=== PATIENT | female | born 1950 | race American Indian/Alaskan Native ===

== ENCOUNTER 2018-11-24 10:29 | Inpatient (IN) | payer MEDICAID, MEDICARE ==
[2018-11-24] MEDS ORDERED: ASPIRIN PO ONE (10:52)
--- NOTE | 2018-11-24 11:39 | XRay Report ---
CHEST 1 VIEW INDICATION / CLINICAL INFORMATION: Chest Pain. COMPARISON: 12/31/2015 FINDINGS: SUPPORT DEVICES: Central line is present and appears to be unremarkable with respect to position. HEART / MEDIASTINUM: Cardiac silhouette size is mild to moderately enlarged. This is unchanged. LUNGS / PLEURA: Mild interstitial pulmonary edema is present. No focal parenchymal disease or suggest ion of large pleural effusion. No pneumothorax. ADDITIONAL FINDINGS: No significant additional findings. IMPRESSION: 1. Mild interstitial pulmonary edema. Mild cardiomegaly. Signer Name: Cara Bryan MD Signed: 11/24/2018 11:34 AM Workstation Name: [id number]
[2018-11-24 11:44] LABS: Basophils # (Auto) 0.1 K/mm3 (0.0-0.1); Basophils % (Auto) 0.8 % (0.0-1.8); Eosinophils # (Auto) 0.2 K/mm3 (0.0-0.4); Eosinophils % (Auto) 1.9 % (0.0-4.3); Hemoglobin 11.4 gm/dl (10.1-14.3); Lymphocytes # (Auto) 0.7 K/mm3 (1.2-5.4); Lymphocytes % (Auto) 8.1 % (13.4-35.0); Mean Corpuscular HGB Conc 34 % (30-34); Mean Corpuscular Volume 112 fl (79-97); Monocytes # (Auto) 0.9 K/mm3 (0.0-0.8); Monocytes % (Auto) 10.4 % (0.0-7.3); Platelet Count 199 K/mm3 (140-440); Red Blood Count 3.03 M/mm3 (3.65-5.03); Red Cell Distribution Width 16.5 % (13.2-15.2)
--- NOTE | 2018-11-24 11:56 | Emergency Department Report ---
HPI - General Chief Complaint: Chest Pain Time Seen by Provider: 11/24/18 11:39 - HPI HPI: Room 7 The patient is a 68-year-old female presenting with chief complaint of chest pain and altered mental status. The patient is a very poor historian as she a ppears lethargic and does not answer all questions. The patient's son reportedly brought her in for chest pain, shortness of breath and altered mental status for several days. The patient admits to chest pain for one day associated with shortness of breath nausea and diaphoresis. The patient repo rtedly has not had dialysis since 11/20/2018 ED Past Medical Hx - Past Medical History Hx Hypertension: Yes (No home medication ) Hx Arthritis: Yes Hx Psychiatric Treatment: Yes (bipolar, anxiety) Additional medical history: hepatitis C - Surgical History Additional Surgical History: left hip replacement 2006. LEFT FALLOPIAN TUBE REMOVED. partial hystertecomy. 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 - Family History Family history: no significant - Social History Smoking Status: Current Every Day Smoker - Medications Home Medications: Home Medications Medication Instructions Recorded Confirmed Last Taken Type raNITIdine HCl [Zantac 300 MG TAB] 300 mg PO QPM #14 tablet 12/31/15 Unknown Rx traMADol [Ultram] 50 mg PO Q6HR PRN #20 tablet 12/31/15 Unknown Rx ED Review of Systems ROS: Stated complaint: CHEST PAIN Other details as noted in HPI Constitutional: diaphoresis Eyes: denies: eye pain ENT: denies: throat pain Respiratory: shortness of breath Cardiovascular: chest pain Gastrointestinal: nausea Genitourinary: denies: dysuria Musculoskeletal: denies: back pain Neurological: other (altered mental status). denies: headache Physical Exam - Physical Exam Vital Signs: Vital Signs 11/24/18 10:35 Temperature 97.4 F L Pulse Rate 66 Respiratory 16 Rate Blood Pressure 101/42 O2 Sat by Pulse 98 Oximetry Physical Exam: GENERAL: The patient is well-developed well-nourished female lying on stretcher sleeping. Patient awakens to verbal stimuli but falls back to sleep easily. [] HEENT: Normocephalic. Atraumatic. Extraocular motions are intact. Patient has moist mucous membranes. NECK: Supple. Trachea midline CHEST/LUNGS: Clear to auscultation. There is no respiratory distress noted. HEART/CARDIOVASCULAR: Regular. There is no tachycardia. There is no gallop rub or murmur. ABDOMEN: Abdomen is soft, nontender. Patient has normal bowel sounds. There is no abdominal distention. SKIN: There is no rash. There is no edema. There is no diaphoresis. NEURO: The patient is sleepy but awakens to verbal stimuli. Patient falls back to sleep easily. Patient does not fully cooperate with neurologic exam but has equal home care companion, and moves all extremities.. The patient has normal speech MUSCULOSKELETAL: There is no evidence of acute injury. ED Course Vital Signs 11/24/18 10:35 Temperature 97.4 F L Pulse Rate 66 Respiratory 16 Rate Blood Pressure 101/42 O2 Sat by Pulse 98 Oximetry - Consultations Consultation #1: 11/24/18 12:08 Nephrology paged- case d/w Dr Dangelo. will arrange for hemodialysis 1 ED Medical Decision Making - Lab Data Result diagrams: 11/24/18 10:59 11/24/18 10:59 Laboratory Tests 11/24/18 11/24/18 11/24/18 10:59 10:59 12:07 WBC 9.1 RBC 3.03 L Hgb 11.4 Hct 34.0 MCV 112 H MCH 38 H MCHC 34 RDW 16.5 H Plt Count 199 Lymph % (Auto) 8.1 L [place] % (Auto) 10.4 H Eos % (Auto) 1.9 Baso % (Auto) 0.8 Lymph # 0.7 L [place] # 0.9 H Eos # 0.2 Baso # 0.1 Seg Neutrophils % 78.8 H Seg Neutrophils # 7.2 Sodium 131 L Potassium 6.1 H* Chloride 88.2 L Carbon Dioxide 19 L Anion Gap 30 BUN 50 H Creatinine 8.8 H Estimated GFR 5 BUN/Creatinine Ratio 6 Glucose 63 L POC Glucose Calcium 13.4 H* Ammonia 53.0 Troponin T 0.137 H* Triglycerides 54 Cholesterol 126 LDL Cholesterol Direct 52 HDL Cholesterol 64 H Cholesterol/HDL Ratio 1.96 TSH Free T4 11/24/18 11/24/18 12:07 13:34 WBC RBC Hgb Hct MCV MCH MCHC RDW Plt Count Lymph % (Auto) [place] % (Auto) Eos % (Auto) Baso % (Auto) Lymph # [place] # Eos # Baso # Seg Neutrophils % Seg Neutrophils # Sodium Potassium Chloride Carbon Dioxide Anion Gap BUN Creatinine Estimated GFR BUN/Creatinine Ratio Glucose POC Glucose 177 H Calcium Ammonia Troponin T Triglycerides Cholesterol LDL Cholesterol Direct HDL Cholesterol Cholesterol/HDL Ratio TSH 0.533 Free T4 1.45 - EKG Data -: EKG Interpreted by Me EKG shows normal: sinus rhythm Rate: normal - EKG Data When compared to previous EKG there are: changes noted Interpretation: nonspecific ST-T wave lauryn (T-wave inversions in leads [address] segment depression in leads V4, V5, V6) - Radiology Data Radiology results: report reviewed (chest x-ray, CT head), image reviewed (chest x-ray, CT head) interpreted by me: Chest [id number] edema. No pneumothorax [address] [address] XRay Report Signed Patient: DALE SNYDER MR#: [id number] 470 : 1950 Acct:[id number] Age/Sex: 68 / F ADM Date: 11/24/18 Loc: ED Attending Dr: Ordering Physician: VENTURA RIVERA MD Date of Service: 11/24/18 Procedure(s): XR chest 1V ap Accession Number(s): [id number] cc: VENTURA RIVERA MD Fluoro Time In Minutes: CHEST 1 VIEW INDICATION / CLINICAL INFORMATION: Chest Pain. COMPARISON: 12/31/2015 FINDINGS: SUPPORT DEVICES: Central line is present and appears to be unremarkable with respect to position. HEART / MEDIASTINUM: Cardiac silhouette size is mild to moderately enlarged. This is unchanged. LUNGS / PLEURA: Mild interstitial pulmonary edema is present. No focal parenchymal disease or suggestion of large pleural effusion. No pneumothorax. ADDITIONAL FINDINGS: No significant additional findings. IMPRESSION: 1. Mild interstitial pulmonary edema. Mild cardiomegaly. Signer Name: Cara Bryan MD Signed: 11/24/2018 11:34 AM Workstation Name: [id number] Transcribed By: JR Dictated By: Cara Bryan MD Electronically Authenticated By: Cara Bryan MD Signed Date/Time: 11/24/18 1134 DD/ 1132 TD/TT: [address] [address] Cat Scan Report Signed Patient: DALE SNYDER MR#: [id number] 470 : 1950 Acct:[id number] Age/Sex: 68 / F ADM Date: 11/24/18 Loc: ED Attending Dr: Ordering Physician: VENTURA RIVEAR MD Date of Service: 11/24/18 Procedure(s): CT head/brain wo con Accession Number(s): [id number] cc: VENTURA RIVERA MD CT BRAIN: 11/24/2018 INDICATION / CLINICAL INFORMATION: altered mental status. COMPARISON: None available. FINDINGS: BRAIN/INTRACRANIAL STRUCTURES: Unenhanced CT images of the brain demonstrate no evidence of acute intracranial abnormality. Ventricles and sulci are slightly prominent in size, consistent with age-related atrophic change. Extensive chronic white matter hypoattenuation is present throughout the cerebral hemispheric white matter. There is no CT evidence of acute large vessel territory ischemic injury, hemorrhage, or mass. There are no abnormal extra-axial fluid collections. EXTRACRANIAL STRUCTURES: Unremarkable. IMPRESSION: No acute abnormality. Extensive chronic white matter hypoattenuation. All CT scans at this location are performed using dose reduction to ALARA by means of automated exposure control. Signer Name: Caden Starkey MD Signed: 11/24/2018 1:37 PM Workstation Name: [id number] Transcribed By: AO Dictated By: Caden Starkey MD Electronically Authenticated By: Caden Starkey MD Signed Date/Time: 11/24/181336 DD/ 34 TD/TT: - Differential Diagnosis ACS, hepatic encephalopathy, uremia Critical care attestation.: If time is entered above; I have spent that time in minutes in the direct care of this critically ill patient, excluding procedure time. ED Disposition Clinical Impression: Altered mental status, Hyperkalemia, End-stage renal disease needing dialysis, Chest pain, Hypercalcemia Disposition: OP ADMIT IP TO THIS HOSP Is pt being admited?: Yes Does the pt Need Aspirin: Yes Condition: Fair Instructions: Chest Pain (ED) Referrals: PRIMARY CARE, [Primary Care Provider] - 3-5 Days Time of Disposition: 13:46 (hospitalist.)
[2018-11-24 12:04] LABS: Calcium 13.4 mg/dL (8.4-10.2)
[2018-11-24] MEDS ORDERED: HumuLIN R IV ONE (12:07)
[2018-11-24] MEDS ORDERED: PROVENTIL IH ONE (12:07)
[2018-11-24] MEDS ORDERED: D50W (25GM) Syringe IV ONE (12:07)
[2018-11-24 12:18] LABS: Chol/HDL Ratio 1.96 %
[2018-11-24 12:58] LABS: Free T4 (Free Thyroxine) 1.45 ng/dL (0.76-1.46)
[2018-11-24] MEDS ORDERED: CALCIUM GLUCONATE 1,000 MG in NACL 0.9% 100 ML IV ONE (13:00)
--- NOTE | 2018-11-24 13:41 | Cat Scan Report ---
CT BRAIN: 11/24/2018 INDICATION / CLINICAL INFORMATION: altered mental status. COMPARISON: None available. FINDINGS: BRAIN/INTRACRANIAL STRUCTURES: Unenhanced CT images of the brain demonstrate no evidence of acute int racranial abnormality. Ventricles and sulci are slightly prominent in size, consistent with age-related atrophic change. Extensive chronic white matter hypoattenuation is present throughout the cerebral hemispheric white m atter. There is no CT evidence of acute large vessel territory ischemic injury, hemorrhage, or mass. There a re no abnormal extra-axial fluid collections. EXTRACRANIAL STRUCTURES: Unremarkable. IMPRESSION: No acute abnormality. Extensive chronic white matter hypoattenuation. All CT scans at this location are performed using dose reduction to ALARA by means of automated expos ure control. Signer Name: Caden Starkey MD Signed: 11/24/2018 1:37 PM Workstation Name: [id number]
--- NOTE | 2018-11-24 13:49 | History and Physical Report ---
History of Present Illness Chief complaint: confused History of present illness: 68 YO Female with Nicotine Dependence, HTN, OA, HCV, Bipolar, Anxiety, Severe Malnutrition, ESRD on HD(T,R,Sa), Noncompliance with Dialysis presents to ED for evaluation. Pt is confused and unable to provide detailed history at time of my exam. Pt history taken from ED staff and patient son who is at bedside during exam and interview. As per son, the patient has complained of shortness of breath over the past 2 days, and has exhibited worsening confusion over the same time frame. Pt transported to [facility] via private vehicle. Pt seen and evaluated in ED and found to have ESRD, Acidosis, Encephalopathy, and Hyperkalemia secondary to missed dialysis sessions. Nephrology consulted in ED for urgent dialysis. No reports of fever, chills, palpitations, NVD, Trauma, BRBPR, Skin rash, recent ill contacts, productive cough, falls, prolonged travel/immobility, individual/family history of Bleeding/DVT/PE/Blood clotting disorders. Prior ad mission on 07/01/15 reviewed. All listed medication reconciled at time of admission. Pt is confused, and lethargic, but has a positive gag reflex, and in able to protect her airway. Past History Past Medical History: ESRD, hepatitis, hypertension, other (Bipol ar,Malnutrition,) Past Surgical History: hysterectomy, total hip replacement, Other (Arm surgery) Social history: , smoking Family history: hypertension Medications and Allergies Allergies Allergy/AdvReac Type Severity Reaction Status Date / Time acetaminophen [From Vicodin] AdvReac Vomiting Verified 05/01/15 11:19 hydrocodone bitartrate AdvReac Vomiting Verified 05/01/15 11:19 [From Vicodin] Home Medications Medication Instructions Recorded Confirmed Last Taken Type raNITIdine HCl [Zantac 300 MG TAB] 300 mg PO QPM #14 tablet 12/31/15 Unknown Rx traMADol [Ultram] 50 mg PO Q6HR PRN #20 tablet 12/31/15 Unknown Rx Review of Systems ROS unobtainable: due to mental status Exam - Constitutional Vitals: Temp Pulse Resp BP Pulse Ox 97.4 F L 77 18 127/72 99 11/24/18 10:35 11/24/18 12:01 11/24/18 12:01 11/24/18 12:01 11/24/18 12:01 General appearance: Present: mild distress, cachectic - EENT Eyes: Present: miosis ENT: hearing decreased - Neck Neck: Present: supple, normal ROM - Respiratory Respiratory effort: labored Respiratory: bilateral: diminished, rhonchi - Cardiovascular Heart Sounds: Present: S1 & S2. Absent: rub, click - Extremities Extremities: pulses symmetrical, No edema Peripheral Pulses: within normal limits - Abdominal General gastrointestinal: Present: soft, non-tender, non-distended, normal bowel sounds Female genitourinary: Present: normal - Integumentary Integumentary: Present: clear, warm, dry - Musculoskeletal Musculoskeletal: generalized weakness - Psychiatric Psychiatric: no appropriate mood/affect, no intact judgment & insight, no memory intact - Neurologic Neurologic: moves all extremities, no gait normal Results - Labs CBC & Chem 7: 11/24/18 10:59 11/24/18 10:59 Labs: Abnormal lab results 11/24/18 11/24/18 11/24/18 Range/Units 10:59 10:59 13:34 RBC 3.03 L (3.65-5.03) M/mm3 MCV 112 H (79-97) fl MCH 38 H (28-32) pg RDW 16.5 H (13.2-15.2) % Lymph % (Auto) 8.1 L (13.4-35.0) % [place] % (Auto) 10.4 H (0.0-7.3) % Lymph # 0.7 L (1.2-5.4) K/mm3 [place] # 0.9 H (0.0-0.8) K/mm3 Seg Neutrophils % 78.8 H (40.0-70.0) % Sodium 131 L (137-145) mmol/L Potassium 6.1 H* (3.6-5.0) mmol/L Chloride 88.2 L (98-107) mmol/L Carbon Dioxide 19 L (22-30) mmol/L BUN 50 H (7-17) mg/dL Creatinine 8.8 H (0.7-1.2) mg/dL Glucose 63 L (65-100) mg/dL POC Glucose 177 H (70-105) Calcium 13.4 H* (8.4-10.2) mg/dL Troponin T 0.137 H* (0.00-0.029) ng/mL HDL Cholesterol 64 H (40-59) mg/dL Assessment and Plan - Patient Problems (1) ESRD (end stage renal disease) Current Visit: Yes Status: Acute Plan to address problem: Nephrology consulted in ED, Urgent dialysis, strict I/O, daily weight, monitor uop q shift, avoid nephrotoxic agents. (2) Encephalopathy Current Visit: Yes Status: Acute Plan to address problem: CT Head, neuro check, aspiration precaution, fall precautions, supportive care. (3) Fluid overload Current Visit: Yes Status: Acute Qualifiers: Hypervolemia type: other Qualified Code(s): E87.79 - Other fluid overload Plan to address problem: Secondary to missed dialysis, supportive care, urgent dialysis. (4) HCV (hepatitis C virus) Current Visit: Yes Status: Acute Qualifiers: Viral hepatitis chronicity: chronic Plan to address problem: Outpatient GI F/U care, (5) Acidosis Current Visit: Yes Status: Acute Plan to address problem: IV bicarbonate therapy, urgent dialysis, repeat bmp (6) Malnutrition Current Visit: Yes Status: Acute Qualifiers: Protein-calorie malnutrition severity: severe Plan to address problem: Increased protein intake, dietary supplementation. (7) Osteoarthritis Current Visit: Yes Status: Acute Plan to address problem: pain control, supportive care. (8) Hyperkalemia Current Visit: Yes Status: Acute Plan to address problem: Calcium gluconate, Insulin, D 50, urgent dialysis, repeat bmp in am. (9) DVT prophylaxis Current Visit: Yes Status: Acute Plan to address problem: SCD to BLE while in bed, supportive care.
[2018-11-24] MEDS ORDERED: PROVENTIL IH PRN (14:00)
[2018-11-24] MEDS ORDERED: SODIUM CHLORIDE FLUSH SYRINGE 10 ML IV PRN (14:00)
--- NOTE | 2018-11-24 14:06 | Consultation ---
History of Present Illness - Reason for Consult acute renal failure - History of Present Illness 68 year old with medical history significant for HTN, ESRD on hemodialysis on TTS via a Right IJ cath presents after missed HD since Sunday. She was confused and brought to the emergency room by her nephew. She has some shortness of breath labs are significant for severe hyperkalemia denies any orthopnea or PND. She denies any fevers or chills she has some abdominal soreness but denies any nausea vomiting or diarrhea Medications and Allergies Allergies Allergy/AdvReac Type Severity Reaction Status Date / Time acetaminophen [From Vicodin] AdvReac Vomiting Verified 05/01/15 11:19 hydrocodone bitartrate AdvReac Vomiting Verified 05/01/15 11:19 [From Vicodin] Home Medications Medication Instructions Recorded Confirmed Last Taken Type raNITIdine HCl [Zantac 300 MG TAB] 300 mg PO QPM #14 tablet 12/31/15 Unknown Rx traMADol [Ultram] 50 mg PO Q6HR PRN #20 tablet 12/31/15 Unknown Rx Review of Systems Constitutional: no weight loss, no weight gain Ears, nose, mouth and throat: no deferred, no ear pain, no ear discharge Cardiovascular: no chest pain, no orthopnea, no palpitations Respiratory: no cough, no cough with sputum Gastrointestinal: no abdominal pain, no nausea, no vomiting Musculoskeletal: no neck stiffness, no neck pain Integumentary: no deferred, no rash, no blisters Neurological: no head injury Psychiatric: no anxiety, no memory loss Endocrine: no cold intolerance, no heat intolerance Hematologic/Lymphatic: no easy bruising, no easy bleeding Exam - Vital Signs Vital signs: Vital Signs Temp Pulse Resp BP Pulse Ox 97.4 F L 66 16 101/42 98 11/24/18 10:35 11/24/18 10:35 11/24/18 10:35 11/24/18 10:35 11/24/18 10:35 - General Appearance General appearance: well-developed, well-nourished EENT: ATNC, PERRL Neck: Present: JVD/HJR Respiratory: Rales, Ronchi, Decreased Breath Sounds Heart: regular, S1S2 Gastrointestinal: Present: normal, normoactive bowel sounds Integumentary: no rash Neurologic: alert and oriented x3, CN 3-12 intact Musculoskeletal: Present: deferred Psychiatric: mood/affect appropriate Results - Lab Results 11/24/18 10:59 11/24/18 10:59 Most recent lab results Calcium 13.4 mg/dL (8.4-10.2) H* 11/24/18 10:59 - Image Kidney/bladder ultrasound: image reviewed Assessment and Plan - Patient Problems (1) End-stage renal disease needing dialysis Current Visit: Yes Status: Acute Plan to address problem: End-stage renal disease Access left IJ PermCath We'll initiate dialysis (2) Pulmonary edema Current Visit: Yes Status: Acute Plan to address problem: Pulmonary edema I reviewed chest x-ray with diffuse bilateral opacities consistent with pulmonary congestion We'll initiate ultrafiltration (3) Hypercalcemia Current Visit: Yes Status: Acute Plan to address problem: Hypercalcemia : Ca: 13.4 Will use a low calcium bath (4) Hyperkalemia Current Visit: Yes Status: Acute Plan to address problem: Hyperkalemia Will use 2K bath continue HD 3.5hrs. (5) Metabolic acidosis Current Visit: Yes Status: Acute Plan to address problem: Metabolic acidosis 2/2 CKD -will initiate HD.
[2018-11-24 15:09] LABS: Hepatitis B Surface Antigen Non-Reactive (Negative); Hepatitis C Virus Antibody Reactive (NonReactive)
[2018-11-24] MEDS ORDERED: ALBURX 25% (ALBUMIN) IV STA (15:24)
[2018-11-24] MEDS ORDERED: NON-FORMULARY (Ranitidine Hcl [Zantac 300 Mg Tab] 300 MG) PO SCH (18:00)
[2018-11-24] MEDS ORDERED: NACL 0.9 (PRIMING MACHINE ONLY DIALYSIS) MC ONE (18:15)
[2018-11-24] MEDS: SODIUM CHLORIDE FLUSH SYRINGE 10 ML IV SCH (21:28)
[2018-11-24] MEDS ORDERED: PEPCID PO SCH (22:00)
[2018-11-25] MEDS ORDERED: NITROSTAT SL PRN (01:02)
[2018-11-25] MEDS ORDERED: HEPARIN 10,000 UNITS/10 ML IV ONE (01:03)
--- NOTE | 2018-11-25 01:14 | Event Note ---
Date: 11/25/18 PATIENT REPORTED BY NURSE TO HAVE ELEVATED TROPONIN LEVELS AFTER BEING ADMITTED FOR SOB,CHEST PAIN ESRD NEEDING URGENT DIALYSIS. WILL START I.V HEPARIN PER NSTEMI PROTOCOL, PO ASPIRIN NITRO PASTE AND SL. CARDIOLOGY CONSULT, NPO
[2018-11-25 01:41] LABS: Hematocrit 33.1 % (30.3-42.9); Hemoglobin 11.3 gm/dl (10.1-14.3)
[2018-11-25 01:52] LABS: INR 1.16 (0.87-1.13)
[2018-11-25 01:53] LABS: Partial Thromboplastin Time 35.4 Sec. (24.2-36.6)
[2018-11-25] MEDS ORDERED: HEPARIN/ 0.45% NACL-25,000 UNIT/500 ML 25,000 UNIT/500 ML BAG IV SCH (02:00)
[2018-11-25 06:00] LABS: Albumin 4.3 g/dL (3.9-5)
[2018-11-25 06:04] LABS: Calcium 11.8 mg/dL (8.4-10.2)
[2018-11-25] MEDS: NITRO-BID 2% TP SCH ×3 (06:22→17:02)
--- NOTE | 2018-11-25 07:40 | Progress Note ---
Assessment and Plan Assessment and plan: 68 YO Female with Nicotine Dependence, HTN, OA, HCV, Bipolar, Anxiety, Severe Malnutrition, ESRD on HD(T,R,Sa), Noncompliance with Dialysis presents to ED for evaluation. Pt is confused and unable to provide detailed history at time of my exam. Pt history taken from ED staff and patient son who is at bedside during exam and interview. 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 Pt transported to [facility] via private vehicle. * In ED and found to have ESRD, Acidosis, Encephalopathy, and Hyperkalemia secondary to missed dialysis sessions. Nephrology consulted in ED for urgent dialysis. * Pt is confused, and lethargic, but has a positive gag reflex, and in able to protect her airway. No evidence of Infection noted * Patient noted to have elevated Troponin and NSTEMI protocol initiated. Review of previous records shows normal tropnin and no evidence of prior cardiac work up * Rechecked BP and saturation myself, 91/48 with sat of 92 on RA. * Initatied Midodrine, will need at least one more dialysis. * Discontinue heparin gtt. discussed with Cardiology * PT/OT FOR POSSIBLE Rehab need assessment. - Patient Problems (1) ESRD (end stage renal disease) Current Visit: Yes Status: Acute Plan to address problem: Nephrology consulted in ED, Electrolytes improved following Dialysis (2) Elevated Troponin Possible Type 2 SC, await cardiology eval, Obtain Echo, Continue NSTEMI protocol till cardiology eal, (3) Acute Respiratory failure secondary Fluid overload Current Visit: Yes Status: Acute Qualifiers: Hypervolemia type: other Qualified Code(s): E87.79 - Other fluid overload Plan to address problem: Secondary to missed dialysis, supportive care, urgent dialysis. Wean oxygen, (4) Metabolic Encephalopathy Current Visit: Yes Status: Acute Plan to address problem: CT head is negative for acute disease Mental health improving (5) Acidosis Current Visit: Yes Status: Acute Plan to address problem: IV bicarbonate therapy, urgent dialysis, repeat bmp (6) Malnutrition Current Visit: Yes Status: Acute Qualifiers: Protein-calorie malnutrition severity: severe Plan to address problem: Increased protein intake, dietary supplementation. (7) Osteoarthritis Current Visit: Yes Status: Acute Plan to address problem: pain control, supportive care. (8) Hyperkalemia Current Visit: Yes Status: Acute Plan to address problem: Patient was given Calcium gluconate, Insulin, D 50, urgent dialysis, Now [facility] ed (9) Hypotension Start on MIDODRINE (10)HCV (hepatitis C virus) Current Visit: Yes Status: Acute Qualifiers: Viral hepatitis chronicity: chronic Plan to address problem: Outpatient GI F/U care, (11) DVT prophylaxis Current Visit: Yes Status: Acute Plan to address problem: SCD to BLE while in bed, supportive care. History Interval history: Patient seen and examined, remains lethargic, but awake and responsive. Complains of generalized body ache, improving. Hospitalist Physical - Physical exam Narrative exam: General appearance: Present: mild distress, cachectic - EENT Eyes: Present: miosis ENT: hearing decreased - Neck Neck: Present: supple, normal ROM - Respiratory Respiratory effort: labored Respiratory: bilateral: diminished, rhonchi - Cardiovascular Heart Sounds: Present: S1 & S2. Absent: rub, click - Extremities Extremities: pulses symmetrical, No edema Peripheral Pulses: within normal limits - Abdominal General gastrointestinal: Present: soft, non-tender, non-distended, normal bowel sounds Female genitourinary: Present: normal - Integumentary Integumentary: Present: clear, warm, dry, left chest wall dialysis catheter with dressing - Musculoskeletal Musculoskeletal: generalized weakness - Psychiatric Psychiatric: no appropriate mood/affect, no intact judgment & insight, no memory intact - Neurologic Neurologic: moves all extremities, no gait normal - Constitutional Vitals: Temp Pulse Resp BP Pulse Ox 99.7 F H 80 18 89/41 92 11/25/18 02:02 11/25/18 06:22 11/25/18 02:22 11/25/18 06:22 11/25/18 02:22 General appearance: Present: mild distress, cachectic Results - Labs CBC & Chem 7: 11/25/18 01:18 11/25/18 05:06 Labs: Laboratory Last Values WBC 9.1 K/mm3 (4.5-11.0) 11/24/18 10:59 RBC 3.03 M/mm3 (3.65-5.03) L 11/24/18 10:59 Hgb 11.3 gm/dl (10.1-14.3) 11/25/18 01:18 Hct 33.1 % (30.3-42.9) 11/25/18 01:18 MCV 112 fl (79-97) H 11/24/18 10:59 MCH 38 pg (28-32) H 11/24/18 10:59 MCHC 34 % (30-34) 11/24/18 10:59 RDW 16.5 % (13.2-15.2) H 11/24/18 10:59 Plt Count 186 K/mm3 (140-440) 11/25/18 01:18 Lymph % (Auto) 8.1 % (13.4-35.0) L 11/24/18 10:59 Gillespie % (Auto) 10.4 % (0.0-7.3) H 11/24/18 10:59 Eos % (Auto) 1.9 % (0.0-4.3) 11/24/18 10:59 Baso % (Auto) 0.8 % (0.0-1.8) 11/24/18 10:59 Lymph # 0.7 K/mm3 (1.2-5.4) L 11/24/18 10:59 Gillespie # 0.9 K/mm3 (0.0-0.8) H 11/24/18 10:59 Eos # 0.2 K/mm3 (0.0-0.4) 11/24/18 10:59 Baso # 0.1 K/mm3 (0.0-0.1) 11/24/18 10:59 Seg Neutrophils % 78.8 % (40.0-70.0) H 11/24/18 10:59 Seg Neutrophils # 7.2 K/mm3 (1.8-7.7) 11/24/18 10:59 PT 14.5 Sec. (12.2-14.9) 11/25/18 01:18 INR 1.16 (0.87-1.13) H 11/25/18 01:18 APTT 35.4 Sec. (24.2-36.6) 11/25/18 01:18 Sodium 137 mmol/L (137-145) 11/25/18 05:06 Potassium 4.4 mmol/L (3.6-5.0) D 11/25/18 05:06 Chloride 92.9 mmol/L (98-107) L 11/25/18 05:06 Carbon Dioxide 26 mmol/L (22-30) D 11/25/18 05:06 Anion Gap 23 mmol/L 11/25/18 05:06 BUN 20 mg/dL (7-17) H 11/25/18 05:06 Creatinine 4.8 mg/dL (0.7-1.2) H 11/25/18 05:06 Estimated GFR 11 ml/min 11/25/18 05:06 BUN/Creatinine Ratio 4 % 11/25/18 05:06 Glucose 52 mg/dL (65-100) L 11/25/18 05:06 POC Glucose 67 (70-105) L 11/25/18 00:00 Calcium 11.8 mg/dL (8.4-10.2) H 11/25/18 05:06 Total Bilirubin 0.40 mg/dL (0.1-1.2) 11/25/18 05:06 AST 49 units/L (5-40) H 11/25/18 05:06 ALT 13 units/L (7-56) 11/25/18 05:06 Alkaline Phosphatase 87 units/L (35-129) 11/25/18 05:06 Ammonia 53.0 umol/L (25-60) 11/24/18 12:07 Troponin T 0.178 ng/mL (0.00-0.029) H* D 11/24/18 20:20 Total Protein 8.2 g/dL (6.3-8.2) 11/25/18 05:06 Albumin 4.3 g/dL (3.9-5) 11/25/18 05:06 Albumin/Globulin Ratio 1.1 % 11/25/18 05:06 Triglycerides 54 mg/dL (2-149) 11/24/18 10:59 Cholesterol 126 mg/dL (50-199) 11/24/18 10:59 LDL Cholesterol Direct 52 mg/dL (50-130) 11/24/18 10:59 HDL Cholesterol 64 mg/dL (40-59) H 11/24/18 10:59 Cholesterol/HDL Ratio 1.96 % 11/24/18 10:59 TSH 0.533 mlU/mL (0.270-4.200) 11/24/18 12:07 Free T4 1.45 ng/dL (0.76-1.46) 11/24/18 12:07 Hepatitis A IgM Ab Non-reactive (NonReactive) 11/24/18 12:07 Hep Bs Antigen Non-reactive (Negative) 11/24/18 12:07 Hep B Core IgM Ab Non-reactive (NonReactive) 11/24/18 12:07 Hepatitis C Antibody Reactive (NonReactive) A 11/24/18 12:07 Active Medications - Current Medications Current Medications: Generic Name Dose Route Start Last Admin Trade Name Freq PRN Reason Stop Dose Admin Acetaminophen 650 mg 11/24/18 14:00 Tylenol PO Q4H PRN Pain MILD(1-3)/Fever >100.5/LAMBERT Albuterol 2.5 mg 11/24/18 14:00 Proventil IH Q4HRT PRN Shortness Of Breath Aspirin 325 mg 11/25/18 10:00 Aspirin PO QDAY [facility] Famotidine 20 mg 11/24/18 22:00 11/24/18 21:28 Pepcid PO 20 mg BID MAIRA Administration Heparin Sodium/Sodium Chloride 25,000 unit in 500 mls @ 12 mls/hr 11/25/18 02:00 11/25/18 01:46 Heparin/ 0.45% Nacl-25,000 Unit/500 Ml IV 600 units/hr TITRATE MAIRA 12 mls/hr Administration Protocol 600 UNITS/HR Nitroglycerin 0.4 mg 11/25/18 01:02 Nitrostat SL .Q5MIN PRN Chest Pain Nitroglycerin 0.5 inch 11/25/18 06:00 11/25/18 06:22 Nitro-Bid 2% TP Not Given TIDNTG [facility] Protocol Ondansetron HCl 4 mg 11/24/18 14:00 Zofran IV Q8H PRN Nausea And Vomiting Sodium Chloride 10 ml 11/24/18 22:00 11/24/18 21:28 Sodium Chloride Flush Syringe 10 Ml IV 10 ml BID MAIRA Administration Sodium Chloride 10 ml 11/24/18 14:00 Sodium Chloride Flush Syringe 10 Ml IV PRN PRN LINE FLUSH Tramadol HCl 50 mg 11/24/18 14:01 Ultram PO Q6HR PRN PAIN
[2018-11-25] MEDS: PEPCID PO SCH ×2 (09:18→22:14)
[2018-11-25] MEDS: SODIUM CHLORIDE FLUSH SYRINGE 10 ML IV SCH ×2 (09:19→22:14)
[2018-11-25] MEDS: ASPIRIN PO SCH (09:19)
--- NOTE | 2018-11-25 11:15 | Progress Note ---
Assessment and Plan IMpresion: * ESRD * HTN * Hep C * Pulm edema * Noncompliance with hd Plan: * HD q mwf * uf as tolerated * daily lytes * renal diet * stress compliance with medical regimen * ok to dc home after hd today Subjective Date of service: 11/25/18 Principal diagnosis: esrd Interval history: resting in bed today Objective - Exam Narrative Exam: General appearance: well-developed, well-nourished EENT: ATNC, PERRL Neck: Present: JVD/HJR Respiratory: Rales, Ronchi, Decreased Breath Sounds Heart: regular, S1S2 Gastrointestinal: Present: normal, normoactive bowel sounds Integumentary: no rash Neurologic: alert and oriented x3, CN 3-12 intact Musculoskeletal: Present: deferred Psychiatric: mood/affect appropriate - Vital Signs Vital signs: Vital Signs - 12hr 11/25/18 11/25/18 11/25/18 02:02 02:22 06:22 Temperature 99.7 F H Pulse Rate 83 80 Pulse Rate [ 83 Right Brachial] Respiratory 18 18 Rate Blood Pressure 95/45 89/41 O2 Sat by Pulse 92 92 Oximetry 11/25/18 11/25/18 11/25/18 07:32 07:41 07:46 Temperature 99.6 F Pulse Rate 80 Pulse Rate [ 80 Right Brachial] Respiratory 20 18 Rate Blood Pressure 84/43 83/46 O2 Sat by Pulse 95 Oximetry 11/25/18 07:47 Temperature Pulse Rate Pulse Rate [ Right Brachial] Respiratory Rate Blood Pressure O2 Sat by Pulse 100 Oximetry - General Appearance General appearance: well-developed, well-nourished, appears stated age EENT: PERRL, mucous membranes moist Neck: no JVD, no thyromegaly, no carotid bruit, supple Respiratory: Present: Rales, Decreased Breath Sounds Cardiology: S1S2, S3, S4 Gastrointestinal: Integumentary: no rash, warm and dry Neurologic: no focal deficit, no asterixis, gait normal Musculoskeletal: clubbing, joint swelling Psychiatric: mood/affect appropriate, cooperative - Lab 11/25/18 01:18 11/25/18 05:06 Most recent lab results Calcium 11.8 mg/dL (8.4-10.2) H 11/25/18 05:06 Medications & Allergies - Medications Allergies/Adverse Reactions: Allergies acetaminophen [From Vicodin] Adverse Reaction (Verified 05/01/15 11:19) Vomiting hydrocodone bitartrate [From Vicodin] Adverse Reaction (Verified 05/01/15 11:19) Vomiting Home Medications: Home Medications Medication Instructions Recorded Confirmed Last Taken Type raNITIdine HCl [Zantac 300 MG TAB] 300 mg PO QPM #14 tablet 12/31/15 11/25/18 Unknown Rx traMADol [Ultram] 50 mg PO Q6HR PRN #20 tablet 12/31/15 11/25/18 Unknown Rx Active Medications: Generic Name Dose Route Start Last Admin Trade Name Freq PRN Reason Stop Dose Admin Acetaminophen 650 mg 11/24/18 14:00 Tylenol PO Q4H PRN Pain MILD(1-3)/Fever >100.5/LAMBERT Albuterol 2.5 mg 11/24/18 14:00 Proventil IH Q4HRT PRN Shortness Of Breath Aspirin 325 mg 11/25/18 10:00 11/25/18 09:19 Aspirin PO 325 mg QDAY MAIRA Administration Famotidine 10 mg 11/25/18 10:00 11/25/18 09:18 Pepcid PO 10 mg BID MAIRA Administration Midodrine 2.5 mg 11/25/18 12:00 Proamatine PO TID@0800,1200,1600 [facility] Nitroglycerin 0.4 mg 11/25/18 01:02 Nitrostat SL .Q5MIN PRN Chest Pain Nitroglycerin 0.5 inch 11/25/18 06:00 11/25/18 06:22 Nitro-Bid 2% TP Not Given TIDNTG [facility] Protocol Ondansetron HCl 4 mg 11/24/18 14:00 Zofran IV Q8H PRN Nausea And Vomiting Sodium Chloride 10 ml 11/24/18 22:00 11/25/18 09:19 Sodium Chloride Flush Syringe 10 Ml IV 10 ml BID MAIRA Administration Sodium Chloride 10 ml 11/24/18 14:00 Sodium Chloride Flush Syringe 10 Ml IV PRN PRN LINE FLUSH Tramadol HCl 50 mg 11/24/18 14:01 Ultram PO Q6HR PRN PAIN
[2018-11-25] MEDS ORDERED: PROAMATINE PO SCH (12:00)
--- NOTE | 2018-11-25 13:03 | Consultation ---
History of Present Illness Consult date: 11/25/18 Requesting physician: ELIZABETH BECKHAM Consult reason: elevated troponin History of present illness: The patient has a history of end-stage renal disease. She is somewhat confused and unable to give a good history. She was apparently brought to the hospital by her nephew. The patient had apparently missed a dialysis session. She admits to intermittent substernal chest and abdomen pain as well as shortness of breath which has been going on for a few days. She could not elaborate futher on the story. Her troponin level is elevated consistent with NSTEMI while her CXR revealed bilateral infiltrates suggestive of edema. Brain CT scan did not show any acute findings. Past History Past Medical History: ESRD, hepatitis, hypertension, other (Bipolar, Malnutrition,) Past Surgical History: hysterectomy, total hip replacement, Other (Arm surgery) Social history: , smoking Family history: hypertension, other (details of family history are unknown.) Medications and Allergies Allergies Allergy/AdvReac Type Severity Reaction Status Date / Time acetaminophen [From Vicodin] AdvReac Vomiting Verified 05/01/15 11:19 hydrocodone bitartrate AdvReac Vomiting Verified 05/01/15 11:19 [From Vicodin] Home Medications Medication Instructions Recorded Confirmed Last Taken Type raNITIdine HCl [Zantac 300 MG TAB] 300 mg PO QPM #14 tablet 12/31/15 11/25/18 Unknown Rx traMADol [Ultram] 50 mg PO Q6HR PRN #20 tablet 12/31/15 11/25/18 Unknown Rx Active Meds: Active Medications Acetaminophen (Tylenol) 650 mg PO Q4H PRN PRN Reason: Pain MILD(1-3)/Fever >100.5/LAMBERT Albuterol (Proventil) 2.5 mg IH Q4HRT PRN PRN Reason: Shortness Of Breath Aspirin (Aspirin) 325 mg PO QDAY [facility] Last Admin: 11/25/18 09:19 Dose: 325 mg Documented by: Famotidine (Pepcid) 10 mg PO BID [facility] Last Admin: 11/25/18 09:18 Dose: 10 mg Documented by: Midodrine (Proamatine) 2.5 mg PO TID@0800,1200,1600 [facility] Nitroglycerin (Nitrostat) 0.4 mg SL .Q5MIN PRN PRN Reason: Chest Pain Nitroglycerin (Nitro-Bid 2%) 0.5 inch TP TIDNTG [facility]; Protocol Last Admin: 11/25/18 06:22 Dose: Not Given Documented by: Ondansetron HCl (Zofran) 4 mg IV Q8H PRN PRN Reason: Nausea And Vomiting Sodium Chloride (Sodium Chloride Flush Syringe 10 Ml) 10 ml IV BID [facility] Last Admin: 11/25/18 09:19 Dose: 10 ml Documented by: Sodium Chloride (Sodium Chloride Flush Syringe 10 Ml) 10 ml IV PRN PRN PRN Reason: LINE FLUSH Tramadol HCl (Ultram) 50 mg PO Q6HR PRN PRN Reason: PAIN Review of Systems Constitutional: no fever, no chills Ears, nose, mouth and throat: no ear pain, no ear discharge, no sore throat Cardiovascular: chest pain, shortness of breath, no orthopnea, no palpitations, no edema Respiratory: shortness of breath, no cough, no hemoptysis Gastrointestinal: abdominal pain, no nausea, no vomiting, no diarrhea Genitourinary Female: no dysuria, no urinary frequency Rectal: no pain, no bleeding Musculoskeletal: no neck stiffness, no neck pain, no myalgias Integumentary: no rash, no pruritis Neurological: no weakness, no parathesias, no numbness, no tingling Endocrine: no cold intolerance, no heat intolerance Hematologic/Lymphatic: no easy bruising, no easy bleeding Allergic/Immunologic: no urticaria, no wheezing Physical Examination Vital Signs Last Vital Signs Temp 99.6 F 11/25/18 07:32 Pulse 80 11/25/18 07:46 Resp 18 11/25/18 07:46 BP 87/44 11/25/18 09:23 Pulse Ox 100 11/25/18 07:47 General appearance: no acute distress HEENT: Positive: EOMI, Normocephaly, Mucus Membranes Moist Neck: Positive: neck supple, trachea midline Cardiac: Positive: Reg Rate and Rhythm, S1/S2 Lungs: Positive: clear to auscultation Neuro: Positive: Other (Confused. No focal deficit.) Abdomen: Positive: Soft, Active Bowel Sounds. Negative: Tender Skin: Positive: Clear. Negative: Rash Musculoskeletal: Normal Range of Motion Extremities: Present: normal Results 11/25/18 01:18 11/25/18 05:06 Cardiac Enzymes 11/25/18 Range/Units 05:06 AST 49 H (5-40) units/L Coagulation 11/25/18 Range/Units 01:18 PT 14.5 (12.2-14.9) Sec. INR 1.16 H (0.87-1.13) APTT 35.4 (24.2-36.6) Sec. CBC 11/25/18 Range/Units 01:18 Hgb 11.3 (10.1-14.3) gm/dl Hct 33.1 (30.3-42.9) % Plt Count 186 (140-440) K/mm3 Comprehensive Metabolic Panel 11/25/18 Range/Units 05:06 Sodium 137 (137-145) mmol/L Potassium 4.4 D (3.6-5.0) mmol/L Chloride 92.9 L (98-107) mmol/L Carbon Dioxide 26 D (22-30) mmol/L BUN 20 H (7-17) mg/dL Creatinine 4.8 H (0.7-1.2) mg/dL Glucose 52 L (65-100) mg/dL Calcium 11.8 H (8.4-10.2) mg/dL AST 49 H (5-40) units/L ALT 13 (7-56) units/L Alkaline Phosphatase 87 (35-129) units/L Total Protein 8.2 (6.3-8.2) g/dL Albumin 4.3 (3.9-5) g/dL - Imaging and Cardiology Echo: pending EKG interpretations - Telemetry EKG Rhythm: Sinus Rhythm - EKG Sinus rhythms and dysrhythmias: sinus rhythm AV and intraventricular conduction: left anterior fascicular Repolarization changes or abnormalities: ST or T wave suggestive of ischemia Assessment and Plan Aggressive dialysis with follow-up chest x-ray subsequently. Obtain echocardiogram. If hypotension persists, consider vasopressor therapy and ICU transfer. Ultimately, she will benefit from pharmacologic stress MPI. I will not pursue invasive cardiac evaluation initially considering her mental status. - Patient Problems (1) NSTEMI (non-ST elevated myocardial infarction) Current Visit: Yes Status: Acute (2) Acute heart failure Current Visit: Yes Status: Acute (3) Hypotension Current Visit: Yes Status: Acute Qualifiers: Hypotension type: other hypotension type Qualified Code(s): I95.89 - Other hypotension (4) Hyperkalemia Current Visit: Yes Status: Acute (5) Confusion Current Visit: Yes Status: Acute (6) Chest pain Current Visit: Yes Status: Acute (7) Abdominal pain Current Visit: Yes Status: Acute (8) ESRD (end stage renal disease) Current Visit: Yes Status: Chronic (9) HCV (hepatitis C virus) Current Visit: Yes Status: Chronic Qualifiers: Viral hepatitis chronicity: chronic
[2018-11-25] MEDS: PROAMATINE PO ONE ×2 (13:31→13:34)
[2018-11-25] MEDS ORDERED: PROAMATINE PO ONE ×2 (14:00→22:22)
[2018-11-25] MEDS: PROAMATINE PO SCH (16:52)
[2018-11-25] MEDS ORDERED: NACL 0.9 (PRIMING MACHINE ONLY DIALYSIS) MC ONE (17:32)
[2018-11-26 05:38] LABS: Hematocrit 35.4 % (30.3-42.9); Hemoglobin 11.7 gm/dl (10.1-14.3); Mean Corpuscular HGB Conc 33 % (30-34); Mean Corpuscular Volume 112 fl (79-97); Platelet Count 216 K/mm3 (140-440); Red Blood Count 3.15 M/mm3 (3.65-5.03); Red Cell Distribution Width 16.5 % (13.2-15.2)
[2018-11-26] MEDS: NITRO-BID 2% TP SCH ×3 (06:53→18:32)
[2018-11-26 07:50] LABS: Calcium 12.9 mg/dL (8.4-10.2)
--- NOTE | 2018-11-26 08:17 | XRay Report ---
CHEST 1 VIEW INDICATION: RESPIRATORY FAILURE. COMPARISON: 11/24/2017 FINDINGS: Support devices: A left Vas-Cath tip is in the right atrium and is unchanged compared to last exam. Heart: Within normal limits. Pulmonary vasculature: Increased central vascular congestion and more distinct vessels. Lungs/Pleura: Given differences in technique, probable improvement in multilobar interstitial disease . Pulmonary consolidation and no pleural effusion. Additional findings: None. IMPRESSION: Interval improvement with decreased multilobar interstitial disease. Signer Name: Aditya Chopra MD Signed: 11/26/2018 8:13 AM Workstation Name: [id number]
[2018-11-26] MEDS ORDERED: LEXISCAN IV ONE ×2 (09:06→09:10)
--- NOTE | 2018-11-26 10:19 | Progress Note ---
Assessment and Plan Await echocardiogram and proceed with lexiscan MPI stress test. Pt has been initiated on midodrine per primary team. However, BPs remain low. If hypotension persists, consider vasopressor therapy and ICU transfer. The patient has been seen in conjunction with Dr. Rogers who agrees with the assessment and plan of care. - Patient Problems (1) NSTEMI (non-ST elevated myocardial infarction) Current Visit: Yes Status: Acute (2) Acute heart failure Current Visit: Yes Status: Acute (3) Hypotension Current Visit: Yes Status: Acute Qualifiers: Hypotension type: other hypotension type Qualified Code(s): I95.89 - Other hypotension (4) Hyperkalemia Current Visit: Yes Status: Acute (5) Confusion Current Visit: Yes Status: Acute (6) Chest pain Current Visit: Yes Status: Acute (7) Abdominal pain Current Visit: Yes Status: Acute (8) ESRD (end stage renal disease) Current Visit: Yes Status: Chronic (9) HCV (hepatitis C virus) Current Visit: Yes Status: Chronic Qualifiers: Viral hepatitis chronicity: chronic Subjective Date of service: 11/26/18 Principal diagnosis: esrd Interval history: Pt for lexiscan MPI stress test. no current complaints. BPs remain low. Objective Last Vital Signs Temp 98.9 F 11/26/18 01:43 Pulse 71 11/26/18 06:53 Resp 14 11/26/18 01:43 BP 81/46 11/26/18 06:53 Pulse Ox 94 11/26/18 08:21 - Physical Examination General: No Apparent Distress HEENT: Positive: EOMI, Normocephaly, Mucus Membranes Moist Neck: Positive: neck supple, trachea midline Cardiac: Positive: Reg Rate and Rhythm, S1/S2 Lungs: Positive: Decreased Breath Sounds Neuro: Positive: Other (Confused. No focal deficit.) Abdomen: Positive: Soft, Active Bowel Sounds. Negative: Tender Skin: Positive: Clear. Negative: Rash Musculoskeletal: Normal Range of Motion Extremities: Present: normal - Labs and Meds CBC 11/26/18 Range/Units 05:30 WBC 7.0 (4.5-11.0) K/mm3 RBC 3.15 L (3.65-5.03) M/mm3 Hgb 11.7 (10.1-14.3) gm/dl Hct 35.4 (30.3-42.9) % Plt Count 216 (140-440) K/mm3 Comprehensive Metabolic Panel 11/26/18 Range/Units 05:30 Sodium 137 (137-145) mmol/L Potassium 4.3 (3.6-5.0) mmol/L Chloride 94.0 L (98-107) mmol/L Carbon Dioxide 28 (22-30) mmol/L BUN 17 (7-17) mg/dL Creatinine 3.8 H (0.7-1.2) mg/dL Glucose 91 (65-100) mg/dL Calcium 12.9 H* (8.4-10.2) mg/dL - Imaging and Cardiology Echo: pending - EKG Sinus rhythms and dysrhythmias: sinus rhythm AV and intraventricular conduction: left anterior fascicular Repolarization changes or abnormalities: ST or T wave suggestive of ischemia
--- NOTE | 2018-11-26 11:47 | Progress Note ---
Assessment and Plan 68 YO Female with Nicotine Dependence, HTN, OA, HCV, Bipolar, Anxiety, Severe Malnutrition, ESRD on HD(T,R,Sa), Noncompliance with Dialysis presents to ED for evaluation. Pt is confused and unable to provide detailed history at time of my exam. Pt history taken from ED staff and patient son who is at bedside during exam and interview. 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 Pt transported to [facility] via private vehicle. In ED and found to have ESRD, Acidosis, Encephalopathy, and Hyperkalemia secondary to missed dialysis sessions. Nephrology consulted in ED for urgent dialysis. Pt is confused, and lethargic, but has a positive gag reflex, and in able to protect her airway. No evidence of Infection noted Patient noted to have elevated Troponin and NSTEMI protocol initiated. Review of previous records shows normal tropnin and no evidence of prior cardiac work up Initatied Midodrine, will need at least one more dialysis. Discontinue heparin gtt. discussed with Cardiology PT/OT FOR POSSIBLE Rehab need assessment. - Patient Problems (1) ESRD (end stage renal disease) Current Visit: Yes Status: Acute Plan to address problem: Nephrology consulted in ED, Electrolytes improved following Dialysis (2) Elevated Troponin Possible Type 2 OR, await cardiology eval, ECHO pending. Stress test was negative, (3) Acute Respiratory failure secondary Fluid overload Current Visit: Yes Status: Acute Qualifiers: Hypervolemia type: other Qualified Code(s): E87.79 - Other fluid overload Plan to address problem: Secondary to missed dialysis, supportive care, urgent dialysis. Wean oxygen, (4) Metabolic Encephalopathy Current Visit: Yes Status: Acute Plan to address problem: CT head is negative for acute disease Mental health improving (5) Acidosis - improved Current Visit: Yes Status: Acute Plan to address problem: Corrected on IV bicarbonate therapy, (6) Malnutrition Current Visit: Yes Status: Acute Qualifiers: Protein-calorie malnutrition severity: severe Plan to address problem: Increased protein intake, dietary supplementation. (7) Osteoarthritis Current Visit: Yes Status: Acute Plan to address problem: pain control, supportive care. (8) Hyperkalemia Current Visit: Yes Status: Acute Plan to address problem: corrected (9) Hypotension on MIDODRINE (10)HCV (hepatitis C virus) Current Visit: Yes Status: Acute Qualifiers: Viral hepatitis chronicity: chronic Plan to address problem: Outpatient GI F/U care, (11) Hypercalcemia Likely from Ca gluconate infusion Will Trend (12) DVT prophylaxis Current Visit: Yes Status: Acute Plan to address problem: SCD to BLE while in bed, supportive care. Code status: Pt is full code Subjective Date of service: 11/26/18 Principal diagnosis: ESRD on HD, acute respiratory failure, metabolic encephalo chip Interval history: Patient seen and examined. Agitated and Confused. Objective - Exam Narrative Exam: Constitutional: Confused and agitated Head: Normocephalic atraumatic Eyes: Pupils are equal round and reactive to light Nose: No enlarged turbinates, no septal deviation. Mouth: Moist mucous membranes. Neck: Supple no thyromegaly. No bruit. No JVD Heart: Regular rate and rhythm, S1-S2 normal. No rubs murmurs or gallop Lungs: Clear to auscultation bilaterally. no rales or rhonchi Abdomen: Soft, nontender. Bowel sound are present. Extremities: No edema, no cyanosis, no clubbing. Neuro: Confused. No focal sensory or motor deficit. Skin: No rashes or hyperpigmented spots Musculoskeletal system: No joint pain or swelling Hematological: No petechia or subcutanous hemorrhages. Immunological: No multiple septic spots on the skin Lymphatic: No generalized lymphadenopathy Psychiatry: Confused - Constitutional Vitals: Vital Signs - 12hr 11/26/18 11/26/18 11/26/18 01:43 06:53 08:21 Temperature 98.9 F Pulse Rate 71 71 Respiratory 14 Rate Blood Pressure 81/46 81/46 O2 Sat by Pulse 96 94 Oximetry 11/26/18 11/26/18 11/26/18 09:41 10:16 10:18 Temperature Pulse Rate Respiratory Rate Blood Pressure 80/50 85/44 81/43 O2 Sat by Pulse Oximetry 11/26/18 11/26/18 11/26/18 10:19 10:21 10:22 Temperature Pulse Rate Respiratory Rate Blood Pressure 71/37 91/45 90/45 O2 Sat by Pulse Oximetry 11/26/18 10:23 Temperature Pulse Rate Respiratory Rate Blood Pressure 95/43 O2 Sat by Pulse Oximetry - Labs CBC & Chem 7: 11/26/18 05:30 11/26/18 05:30 Labs: Abnormal lab results 11/26/18 11/26/18 Range/Units 05:30 05:30 RBC 3.15 L (3.65-5.03) M/mm3 MCV 112 H (79-97) fl MCH 37 H (28-32) pg RDW 16.5 H (13.2-15.2) % Chloride 94.0 L (98-107) mmol/L Creatinine 3.8 H (0.7-1.2) mg/dL Calcium 12.9 H* (8.4-10.2) mg/dL
--- NOTE | 2018-11-26 12:11 | Progress Note ---
Assessment and Plan IMpresion: * ESRD * history of HTN * hypotension * Hep C * hypercalcemia * Pulm edema * Noncompliance with hd Plan: * HD q mwf * add midodrine, cards following * follow up pth, spep, ross and give calcitonini * plans for hd in am * uf as tolerated * daily lytes * renal diet * stress compliance with medical regimen Subjective Date of service: 11/26/18 Principal diagnosis: esrd Interval history: resting in bed today Objective - Exam Narrative Exam: General appearance: well-developed, well-nourished EENT: ATNC, PERRL Neck: Present: JVD/HJR Respiratory: Rales, Ronchi, Decreased Breath Sounds Heart: regular, S1S2 Gastrointestinal: Present: normal, normoactive bowel sounds Integumentary: no rash Neurologic: alert and oriented x3, CN 3-12 intact Musculoskeletal: Present: deferred Psychiatric: mood/affect appropriate - Vital Signs Vital signs: Vital Signs - 12hr 11/26/18 11/26/18 11/26/18 01:43 06:53 08:21 Temperature 98.9 F Pulse Rate 71 71 Respiratory 14 Rate Blood Pressure 81/46 81/46 O2 Sat by Pulse 96 94 Oximetry 11/26/18 11/26/18 11/26/18 09:41 10:16 10:18 Temperature Pulse Rate Respiratory Rate Blood Pressure 80/50 85/44 81/43 O2 Sat by Pulse Oximetry 11/26/18 11/26/18 11/26/18 10:19 10:21 10:22 Temperature Pulse Rate Respiratory Rate Blood Pressure 71/37 91/45 90/45 O2 Sat by Pulse Oximetry 11/26/18 10:23 Temperature Pulse Rate Respiratory Rate Blood Pressure 95/43 O2 Sat by Pulse Oximetry - Lab 11/26/18 05:30 11/26/18 05:30 Most recent lab results Calcium 12.9 mg/dL (8.4-10.2) H* 11/26/18 05:30 Medications & Allergies - Medications Allergies/Adverse Reactions: Allergies acetaminophen [From Vicodin] Adverse Reaction (Verified 05/01/15 11:19) Vomiting hydrocodone bitartrate [From Vicodin] Adverse Reaction (Verified 05/01/15 11:19) Vomiting Home Medications: Home Medications Medication Instructions Recorded Confirmed Last Taken Type raNITIdine HCl [Zantac 300 MG TAB] 300 mg PO QPM #14 tablet 12/31/15 11/25/18 Unknown Rx traMADol [Ultram] 50 mg PO Q6HR PRN #20 tablet 12/31/15 11/25/18 Unknown Rx Active Medications: Generic Name Dose Route Start Last Admin Trade Name Freq PRN Reason Stop Dose Admin Acetaminophen 650 mg 11/24/18 14:00 Tylenol PO Q4H PRN Pain MILD(1-3)/Fever >100.5/LAMBERT Albuterol 2.5 mg 11/24/18 14:00 Proventil IH Q4HRT PRN Shortness Of Breath Aspirin 325 mg 11/25/18 10:00 11/25/18 09:19 Aspirin PO 325 mg QDAY MAIRA Administration Famotidine 10 mg 11/25/18 10:00 11/25/18 22:14 Pepcid PO 10 mg BID MAIRA Administration Nitroglycerin 0.4 mg 11/25/18 01:02 Nitrostat SL .Q5MIN PRN Chest Pain Nitroglycerin 0.5 inch 11/25/18 06:00 11/26/18 06:53 Nitro-Bid 2% TP Not Given TIDNTG [facility] Protocol Ondansetron HCl 4 mg 11/24/18 14:00 Zofran IV Q8H PRN Nausea And Vomiting Sodium Chloride 10 ml 11/24/18 22:00 11/25/18 22:14 Sodium Chloride Flush Syringe 10 Ml IV 10 ml BID MAIRA Administration Sodium Chloride 10 ml 11/24/18 14:00 Sodium Chloride Flush Syringe 10 Ml IV PRN PRN LINE FLUSH Tramadol HCl 50 mg 11/24/18 14:01 Ultram PO Q6HR PRN PAIN
[2018-11-26] MEDS: ASPIRIN PO SCH (12:12)
[2018-11-26] MEDS: PROAMATINE PO SCH ×3 (12:12→15:14)
[2018-11-26] MEDS: PEPCID PO SCH ×2 (12:12→22:34)
[2018-11-26] MEDS: SODIUM CHLORIDE FLUSH SYRINGE 10 ML IV SCH ×2 (12:12→22:30)
[2018-11-26] MEDS: MIACALCIN IM SCH (22:35)
--- NOTE | 2018-11-27 01:00 | Treadmill Report ---
LEXISCAN STRESS TEST REPORT REASON FOR STUDY: Abnormal cardiac enzymes. STRESS TEST PROTOCOL: The patient received 0.4 mg of Lexiscan intravenously over 10 seconds. Technetium-99m tetrofosmin was subsequently injected. Baseline ECG, normal sinus rhythm. ST segment and T-wave abnormalities. Consider inferolateral ischemia. Lexiscan ECG, no significant change from baseline. No chest pain. No arrhythmias. IMPRESSION: Nondiagnostic due to baseline ECG abnormalities. Nuclear imaging report to follow. JOB# [id number] AGO/NTS
[2018-11-27] MEDS: ULTRAM PO PRN (03:28)
--- NOTE | 2018-11-27 04:59 | Treadmill Report ---
THALLIUM REPORT REASON FOR STUDY: Chest pain. IMAGING PROTOCOL: The patient received 10 mCi of Tc-99m Tetrofosmin for rest imaging, and 28 mCi of Tc-99m Tetrofosmin for stress imaging. Imaging for all procedures was completed 30-90 minutes following the initial injection of Technetium 99m Tetrofosmin. SPECT imaging in the 180 degree arc was performed in the right anterior oblique projection. Computerized reconstruction of the images was performed for analysis. NUCLEAR IMAGING RESULTS: Technically limited study due to significant soft tissue attenuation artifact. Normal left ventricular cavity size with no change from stress to rest. Distribution of radionuclide within the left ventricle revealed a medium-sized area of photo-induction involving the inferior wall. The degree of photo-induction is moderate. Rest imaging does not show any significant improvement in this defect. Gated SPECT imaging revealed normal global LV systolic function with no significant wall motion abnormalities. The calculated left ventricular ejection fraction is 58%. IMPRESSION: Technically limited study. Medium sized fixed inferior defect. Normal global left ventricular systolic function with no significant wall motion abnormalities. EF 58%. These findings suggest prior infarction in the right coronary artery territory. However, in the absence of significant wall motion abnormalities, the defect noted in this patient may be artifactual. No evidence of significant stress-induced ischemia. [facility]# [id number] CHELLE/BINA
[2018-11-27 05:38] LABS: Basophils # (Auto) 0.1 K/mm3 (0.0-0.1); Basophils % (Auto) 0.8 % (0.0-1.8); Eosinophils # (Auto) 0.2 K/mm3 (0.0-0.4); Hematocrit 34.4 % (30.3-42.9); Hemoglobin 11.4 gm/dl (10.1-14.3); Lymphocytes # (Auto) 0.9 K/mm3 (1.2-5.4); Lymphocytes % (Auto) 12.5 % (13.4-35.0); Mean Corpuscular HGB Conc 33 % (30-34); Mean Corpuscular Volume 112 fl (79-97); Monocytes # (Auto) 0.8 K/mm3 (0.0-0.8); Monocytes % (Auto) 10.8 % (0.0-7.3); Platelet Count 232 K/mm3 (140-440); Red Blood Count 3.07 M/mm3 (3.65-5.03); Red Cell Distribution Width 16.5 % (13.2-15.2)
[2018-11-27 06:05] LABS: Albumin 3.9 g/dL (3.9-5)
[2018-11-27] MEDS: PEPCID PO SCH (09:16)
[2018-11-27] MEDS: PROAMATINE PO SCH ×3 (09:16→17:57)
[2018-11-27] MEDS: ASPIRIN PO SCH (09:16)
[2018-11-27] MEDS: MIACALCIN IM SCH (09:16)
[2018-11-27] MEDS: SODIUM CHLORIDE FLUSH SYRINGE 10 ML IV SCH (09:17)
--- NOTE | 2018-11-27 10:16 | Progress Note ---
Assessment and Plan IMpresion: * ESRD * history of HTN * hypotension * Hep C * hypercalcemia * Pulm edema * Noncompliance with hd Plan: * HD q mwf * add midodrine, cards following * follow up pth, spep, ross and give calcitonini * plans for hd in am * uf as tolerated * daily lytes * renal diet * stress compliance with medical regimen Subjective Date of service: 11/27/18 Principal diagnosis: ESRD on HD, acute respiratory failure, metabolic encephalopathy Interval history: resting in bed today Objective - Exam Narrative Exam: General appearance: well-developed, well-nourished EENT: ATNC, PERRL Neck: Present: JVD/HJR Respiratory: Rales, Ronchi, Decreased Breath Sounds Heart: regular, S1S2 Gastrointestinal: Present: normal, normoactive bowel sounds Integumentary: no rash Neurologic: alert and oriented x3, CN 3-12 intact Musculoskeletal: Present: deferred Psychiatric: mood/affect appropriate - Vital Signs Vital signs: Vital Signs - 12hr 11/27/18 11/27/18 11/27/18 02:08 03:00 06:32 Temperature 99.3 F Pulse Rate 78 Respiratory 16 Rate Respiratory 18 Rate [Left Arm] Blood Pressure 91/50 O2 Sat by Pulse 96 100 Oximetry 11/27/18 07:30 Temperature 98.7 F Pulse Rate 72 Respiratory 16 Rate Respiratory Rate [Left Arm] Blood Pressure 112/54 O2 Sat by Pulse 97 Oximetry - Lab 11/27/18 04:39 11/27/18 04:39 Most recent lab results Calcium 12.0 mg/dL (8.4-10.2) H 11/27/18 04:39 Phosphorus 5.00 mg/dL (2.5-4.5) H 11/27/18 04:39 Magnesium 2.10 mg/dL (1.7-2.3) 11/27/18 04:39 Medications & Allergies - Medications Allergies/Adverse Reactions: Allergies acetaminophen [From Vicodin] Adverse Reaction (Verified 05/01/15 11:19) Vomiting hydrocodone bitartrate [From Vicodin] Adverse Reaction (Verified 05/01/15 11:19) Vomiting Home Medications: Home Medications Medication Instructions Recorded Confirmed Last Taken Type raNITIdine HCl [Zantac 300 MG TAB] 300 mg PO QPM #14 tablet 12/31/15 11/25/18 Unknown Rx traMADol [Ultram] 50 mg PO Q6HR PRN #20 tablet 12/31/15 11/25/18 Unknown Rx Active Medications: Generic Name Dose Route Start Last Admin Trade Name [place] PRN Reason Stop Dose Admin Acetaminophen 650 mg 11/24/18 14:00 Tylenol PO Q4H PRN Pain MILD(1-3)/Fever >100.5/LAMBERT Albuterol 2.5 mg 11/24/18 14:00 Proventil IH Q4HRT PRN Shortness Of Breath Aspirin 325 mg 11/25/18 10:00 11/27/18 09:16 Aspirin PO 325 mg QDAY [facility] Administration Calcitonin [place] 200 unit 11/26/18 22:00 11/27/18 09:16 Miacalcin 4 unit/kg (200 unit) 200 unit IM Administration Q12HR MAIRA Famotidine 10 mg 11/25/18 10:00 11/27/18 09:16 Pepcid PO 10 mg BID [facility] Administration Midodrine 10 mg 11/26/18 16:00 11/27/18 09:16 Proamatine PO 10 mg TID@0800,1200,1600 [facility] Administration Nitroglycerin 0.4 mg 11/25/18 01:02 Nitrostat SL .Q5MIN PRN Chest Pain Nitroglycerin 0.5 inch 11/25/18 06:00 11/26/18 18:32 Nitro-Bid 2% TP Not Given TIDNTG [facility] Protocol Ondansetron HCl 4 mg 11/24/18 14:00 Zofran IV Q8H PRN Nausea And Vomiting Sodium Chloride 10 ml 11/24/18 22:00 11/27/18 09:17 Sodium Chloride Flush Syringe 10 Ml IV 10 ml BID MAIRA Administration Sodium Chloride 10 ml 11/24/18 14:00 Sodium Chloride Flush Syringe 10 Ml IV PRN PRN LINE FLUSH Tramadol HCl 50 mg 11/24/18 14:01 11/27/18 03:28 Ultram PO 50 mg Q6HR PRN Administration PAIN
--- NOTE | 2018-11-27 10:17 | Progress Note ---
Assessment and Plan S/p lexiscan MPI stress test yesterday which was negative. Echo reviewed - EF 55-60%, LA severely dilated, mod MR, mild TR. Currently stable cardiac status. CE elevation pattern appears c/w NSTEMI type II. BPs appear to be improving. Pt has been initiated on midodrine. Nothing further to add from cardiac perspective at this time. Will sign off. Recommend pt follow up in our office with Dr. Rogers within 1-2 weeks of hospital discharge ([phone]). The patient has been seen in conjunction with Dr. Rogers who agrees with the assessment and plan of care. - Patient Problems (1) NSTEMI (non-ST elevated myocardial infarction) Current Visit: Yes Status: Acute Plan to address problem: type II (2) Acute heart failure with preserved ejection fraction (HFpEF) Current Visit: Yes Status: Acute (3) Hypotension Current Visit: Yes Status: Acute (4) Hyperkalemia Current Visit: Yes Status: Acute (5) Confusion Current Visit: Yes Status: Acute (6) Chest pain Current Visit: Yes Status: Resolved (7) Abdominal pain Current Visit: Yes Status: Acute (8) ESRD (end stage renal disease) Current Visit: Yes Status: Chronic (9) HCV (hepatitis C virus) Current Visit: Yes Status: Chronic Qualifiers: Viral hepatitis chronicity: chronic Subjective Date of service: 11/27/18 Principal diagnosis: ESRD on HD, acute respiratory failure, metabolic encephalopathy Interval history: Pt sitting up in chair, no current complaints. Objective Last Vital Signs Temp 98.7 F 11/27/18 07:30 Pulse 72 11/27/18 07:30 Resp 16 11/27/18 07:30 BP 112/54 11/27/18 07:30 Pulse Ox 97 11/27/18 07:30 - Physical Examination General: No Apparent Distress HEENT: Positive: EOMI, Normocephaly, Mucus Membranes Moist Neck: Positive: neck supple, trachea midline Cardiac: Positive: Reg Rate and Rhythm, S1/S2 Lungs: Positive: Decreased Breath Sounds Neuro: Positive: Other (Confused. No focal deficit.) Abdomen: Positive: Soft, Active Bowel Sounds. Negative: Tender Skin: Positive: Clear. Negative: Rash Musculoskeletal: Normal Range of Motion Extremities: Present: normal - Labs and Meds Cardiac Enzymes 11/27/18 Range/Units 04:39 AST 38 (5-40) units/L CBC 11/27/18 Range/Units 04:39 WBC 7.1 (4.5-11.0) K/mm3 RBC 3.07 L (3.65-5.03) M/mm3 Hgb 11.4 (10.1-14.3) gm/dl Hct 34.4 (30.3-42.9) % Plt Count 232 (140-440) K/mm3 Lymph # 0.9 L (1.2-5.4) K/mm3 [place] # 0.8 (0.0-0.8) K/mm3 Eos # 0.2 (0.0-0.4) K/mm3 Baso # 0.1 (0.0-0.1) K/mm3 Comprehensive Metabolic Panel 11/27/18 Range/Units 04:39 Sodium 133 L (137-145) mmol/L Potassium 4.8 (3.6-5.0) mmol/L Chloride 90.4 L (98-107) mmol/L Carbon Dioxide 25 (22-30) mmol/L BUN 34 H (7-17) mg/dL Creatinine 5.8 H D (0.7-1.2) mg/dL Glucose 90 (65-100) mg/dL Calcium 12.0 H (8.4-10.2) mg/dL AST 38 (5-40) units/L ALT 11 (7-56) units/L Alkaline Phosphatase 96 (35-129) units/L Total Protein 9.1 H (6.3-8.2) g/dL Albumin 3.9 (3.9-5) g/dL - Imaging and Cardiology Echo: pending - EKG Sinus rhythms and dysrhythmias: sinus rhythm AV and intraventricular conduction: left anterior fascicular Repolarization changes or abnormalities: ST or T wave suggestive of ischemia
[2018-11-27] MEDS: ZOFRAN IV PRN (11:03)
--- NOTE | 2018-11-27 12:07 | Progress Note ---
Assessment and Plan Assessment and plan: 68 YO Female with Nicotine Dependence, HTN, OA, HCV, Bipolar, Anxiety, Severe Malnutrition, ESRD on HD(T,R,Sa), Noncompliance with Dialysis presents to ED for evaluation. Patient was confused and unable to provide detailed history , so initial history taken from ED staff and patient son who is at bedside during exam and interview. 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 In ED and found to have ESRD, Acidosis, Encephalopathy, and Hyperkalemia secondary to missed dialysis sessions. Nephrology consulted in ED for urgent dialysis. ESRD (end stage renal disease) Nephrology consulted in ED, Electrolytes improved following Dialysis Elevated Troponin due to NSTEMI Type 2 Stress test was negative, cardiology following Acute Respiratory failure secondary Fluid overload Secondary to missed dialysis, supportive care, urgent dialysis. Wean oxygen, Acute metabolic Encephalopathy CT head is negative for acute disease Confusion improving Metabolic acidosis Plan to address problem: Corrected on IV bicarbonate therapy, Malnutrition Protein-calorie malnutrition severity: severe Increased protein intake, dietary supplementation. Osteoarthritis pain control, supportive care. Hyperkalemia Resolved Hypotension on MIDODRINE Chronic Hep C Outpatient GI F/U care, Hypercalcemia Started on calcitonin DVT prophylaxis SCD to BLE while in bed, supportive care. Code status: Pt is full code patient not stable to discharge because of Hypercalcemia. History Interval history: Feels better less confusion Hospitalist Physical - Physical exam Narrative exam: Gen: Not in acute distress, sitting up in chair, malnourished HEENT: Normocephalic, atraumatic Neck: supple, no JVD Heart: S1 and S2 reg, no murmurs, rubs or gallop Lungs: Clear to auscultation, no rhonchi, no wheeze Abd: soft, non tender, non distended, normal BS, Ext: No edema, no clubbing, no cyanosis Neuro: Awake, alert, mild confused, no focal neurological signs - Constitutional Vitals: Temp Pulse Resp BP Pulse Ox 98.7 F 72 16 112/54 100 11/27/18 07:30 11/27/18 10:00 11/27/18 07:30 11/27/18 07:30 11/27/18 10:15 General appearance: Present: no acute distress Results - Labs CBC & Chem 7: 11/27/18 04:39 11/27/18 04:39 Labs: Laboratory Last Values WBC 7.1 K/mm3 (4.5-11.0) 11/27/18 04:39 RBC 3.07 M/mm3 (3.65-5.03) L 11/27/18 04:39 Hgb 11.4 gm/dl (10.1-14.3) 11/27/18 04:39 Hct 34.4 % (30.3-42.9) 11/27/18 04:39 MCV 112 fl (79-97) H 11/27/18 04:39 MCH 37 pg (28-32) H 11/27/18 04:39 MCHC 33 % (30-34) 11/27/18 04:39 RDW 16.5 % (13.2-15.2) H 11/27/18 04:39 Plt Count 232 K/mm3 (140-440) 11/27/18 04:39 Lymph % (Auto) 12.5 % (13.4-35.0) L 11/27/18 04:39 [place] % (Auto) 10.8 % (0.0-7.3) H 11/27/18 04:39 Eos % (Auto) 3.0 % (0.0-4.3) 11/27/18 04:39 Baso % (Auto) 0.8 % (0.0-1.8) 11/27/18 04:39 Lymph # 0.9 K/mm3 (1.2-5.4) L 11/27/18 04:39 [place] # 0.8 K/mm3 (0.0-0.8) 11/27/18 04:39 Eos # 0.2 K/mm3 (0.0-0.4) 11/27/18 04:39 Baso # 0.1 K/mm3 (0.0-0.1) 11/27/18 04:39 Seg Neutrophils % 72.9 % (40.0-70.0) H 11/27/18 04:39 Seg Neutrophils # 5.2 K/mm3 (1.8-7.7) 11/27/18 04:39 PT 14.5 Sec. (12.2-14.9) 11/25/18 01:18 INR 1.16 (0.87-1.13) H 11/25/18 01:18 APTT 35.4 Sec. (24.2-36.6) 11/25/18 01:18 Heparin Anti-Xa Level < 0.10 U.I./ml (0.3-0.7) L 11/25/18 08:28 Sodium 133 mmol/L (137-145) L 11/27/18 04:39 Potassium 4.8 mmol/L (3.6-5.0) 11/27/18 04:39 Chloride 90.4 mmol/L (98-107) L 11/27/18 04:39 Carbon Dioxide 25 mmol/L (22-30) 11/27/18 04:39 Anion Gap 22 mmol/L 11/27/18 04:39 BUN 34 mg/dL (7-17) H 11/27/18 04:39 Creatinine 5.8 mg/dL (0.7-1.2) H D 11/27/18 04:39 Estimated GFR 9 ml/min 11/27/18 04:39 BUN/Creatinine Ratio 6 % 11/27/18 04:39 Glucose 90 mg/dL (65-100) 11/27/18 04:39 POC Glucose 67 (70-105) L 11/25/18 00:00 Calcium 12.0 mg/dL (8.4-10.2) H 11/27/18 04:39 Phosphorus 5.00 mg/dL (2.5-4.5) H 11/27/18 04:39 Magnesium 2.10 mg/dL (1.7-2.3) 11/27/18 04:39 Total Bilirubin 0.40 mg/dL (0.1-1.2) 11/27/18 04:39 AST 38 units/L (5-40) 11/27/18 04:39 ALT 11 units/L (7-56) 11/27/18 04:39 Alkaline Phosphatase 96 units/L (35-129) 11/27/18 04:39 Ammonia 53.0 umol/L (25-60) 11/24/18 12:07 Troponin T 0.178 ng/mL (0.00-0.029) H* D 11/24/18 20:20 Total Protein 9.1 g/dL (6.3-8.2) H 11/27/18 04:39 Albumin 3.9 g/dL (3.9-5) 11/27/18 04:39 Albumin/Globulin Ratio 0.8 % 11/27/18 04:39 Triglycerides 54 mg/dL (2-149) 11/24/18 10:59 Cholesterol 126 mg/dL (50-199) 11/24/18 10:59 LDL Cholesterol Direct 52 mg/dL (50-130) 11/24/18 10:59 HDL Cholesterol 64 mg/dL (40-59) H 11/24/18 10:59 Cholesterol/HDL Ratio 1.96 % 11/24/18 10:59 TSH 0.533 mlU/mL (0.270-4.200) 11/24/18 12:07 Free T4 1.45 ng/dL (0.76-1.46) 11/24/18 12:07 PTH Intact 26.79 pg/mL (15-65) 11/26/18 12:45 Hepatitis A IgM Ab Non-reactive (NonReactive) 11/24/18 12:07 Hep Bs Antigen Non-reactive (Negative) 11/24/18 12:07 Hep B Core IgM Ab Non-reactive (NonReactive) 11/24/18 12:07 Hepatitis C Antibody Reactive (NonReactive) A 11/24/18 12:07 Active Medications - Current Medications Current Medications: Generic Name Dose Route Start Last Admin Trade Name Freq PRN Reason Stop Dose Admin Acetaminophen 650 mg 11/24/18 14:00 Tylenol PO Q4H PRN Pain MILD(1-3)/Fever >100.5/LAMBERT Albuterol 2.5 mg 11/24/18 14:00 Proventil IH Q4HRT PRN Shortness Of Breath Calcitonin [place] 200 unit 11/26/18 22:00 11/27/18 09:16 Miacalcin 4 unit/kg (200 unit) 200 unit IM Administration Q12HR MAIRA Famotidine 10 mg 11/25/18 10:00 11/27/18 09:16 Pepcid PO 10 mg BID MAIRA Administration Midodrine 10 mg 11/26/18 16:00 11/27/18 09:16 Proamatine PO 10 mg TID@0800,1200,1600 MAIRA Administration Nitroglycerin 0.4 mg 11/25/18 01:02 Nitrostat SL .Q5MIN PRN Chest Pain Nitroglycerin 0.5 inch 11/25/18 06:00 11/26/18 18:32 Nitro-Bid 2% TP Not Given TIDNTG [facility] Protocol Ondansetron HCl 4 mg 11/24/18 14:00 11/27/18 11:03 Zofran IV 4 mg Q8H PRN Administration Nausea And Vomiting Sodium Chloride 10 ml 11/24/18 22:00 11/27/18 09:17 Sodium Chloride Flush Syringe 10 Ml IV 10 ml BID MAIRA Administration Sodium Chloride 10 ml 11/24/18 14:00 Sodium Chloride Flush Syringe 10 Ml IV PRN PRN LINE FLUSH Tramadol HCl 50 mg 11/24/18 14:01 11/27/18 03:28 Ultram PO 50 mg Q6HR PRN Administration PAIN Nutrition/Malnutrition Assess - Dietary Evaluation Nutrition/Malnutrition Findings: Nutrition Notes Start: 11/25/18 13:34 Freq: Status: Active Protocol: Document 11/25/18 13:34 OH (Rec: 11/25/18 13:46 OH [id number]) Nutrition Notes Need for Assessment generated from: general magistrate Initial or Follow up Assessment Current Diagnosis CKD (stage V CKD),Hypertension Other Pertinent Diagnosis bipolar, severe nutrition, non compliance w/ICHD tx, hep C, hyperkalemia Current Diet npo Labs/Tests alb 4.3 K+ 4.4 Pertinent Medications heparin Height 5 ft 4 in Weight 48.5 kg [place] Body Weight (kg) 54.54 BMI 18.3 Intake Prior to Admission Good Weight change and time frame Almond Paste Mixer weighed pt via bed. Weight Status Underweight Subjective/Other Information Pt. sitting up in bed requesting food. Pt. verbalized she was eating at home. She has had ONS previous and enjoyed. Clavicle /temporal wasting noted. Pt. in/out of conciousness. Pt answers questions then drifts back off to sleep. Percent of energy/protein needs met: 0/0% Burn Absent Trauma Absent GI Symptoms None Current % PO Negligible Minimum of two criteria No #1 Nutrition Diagnosis Inadequate oral intake Etiology poor po intake; metabolic acidosis; AMS As Evidenced by Signs and Symptoms npo Diagnosis Progress(for reassessment Continues documentation) Is patient on ventilator? No Is Patient Ambulatory and/or Out of Bed No REE-([facility]-confined to bed) 1200.048 Kcal/Kg value to use for calculation 35 Approximate Energy Requirements Using 1698 kcal/Kg Calculation Used for Recommendations Kcal/kg Additional Notes PRO: 1.2-1.3 G/KG 65-71 G/ DAY FLUID: 1 L/DAY IBW 54.5 KGS Nutrition Intervention Change Diet Order: Advance to renal diet per MD recommendation Add Supplement/Snack (indicate name/kcal nepro bid /protein ) Provides kCal: 850 Provides Protein (gm) 40 Goal #1 Advance diet to renal per MD recommendation Goal #2 po intake/ONS to exceed 75% at meals Anticipated Discharge Needs: renal dietary education Follow-Up By: 11/28/18 Additional Comments f/u diet advancement, po intake, ONS initiation- tolerance
[2018-11-27] MEDS: NITRO-BID 2% TP SCH ×2 (13:08→18:41)
[2018-11-28 06:36] LABS: Calcium 12.5 mg/dL (8.4-10.2)
[2018-11-28] MEDS ORDERED: HumuLIN R SUB-Q ONE (06:43)
[2018-11-28] MEDS ORDERED: D50W (25GM) Syringe IV ONE ×2 (06:43→09:00)
[2018-11-28] MEDS ORDERED: CALCIUM GLUCONATE 1,000 MG in NACL 0.9% 100 ML IV ONE (06:43)
--- NOTE | 2018-11-28 06:45 | Event Note ---
Date: 11/28/18 Potassium 6.7 this am. Cocktail ordered. Follow up repeat lab
[2018-11-28] MEDS: PEPCID PO SCH ×3 (09:25→22:50)
[2018-11-28] MEDS: PROAMATINE PO SCH ×3 (09:26→16:18)
[2018-11-28] MEDS ORDERED: NACL 0.9% 100 ML IV PRN (10:02)
--- NOTE | 2018-11-28 10:02 | Progress Note ---
Assessment and Plan IMpresion: * ESRD * history of HTN * hypotension * Hep C * hypercalcemia * Pulm edema * Noncompliance with hd Plan: * HD q mwf * k noted this am, will plan for hd today * arrange outpatient hd * patient not staying on hd as rx'd * add midodrine, cards following * follow up pth, spep, ross and give calcitonin * plans for hd in am * uf as tolerated * daily lytes * renal diet * stress compliance with medical regimen Subjective Date of service: 11/28/18 Principal diagnosis: ESRD on HD, acute respiratory failure, metabolic encephalopathy Interval history: resting in bed today Objective - Exam Narrative Exam: General appearance: well-developed, well-nourished EENT: ATNC, PERRL Neck: Present: JVD/HJR Respiratory: Rales, Ronchi, Decreased Breath Sounds Heart: regular, S1S2 Gastrointestinal: Present: normal, normoactive bowel sounds Integumentary: no rash Neurologic: alert and oriented x3, CN 3-12 intact Musculoskeletal: Present: deferred Psychiatric: mood/affect appropriate - Vital Signs Vital signs: Vital Signs - 12hr 11/28/18 11/28/18 02:05 08:01 Temperature 97.2 F L 97.4 F L Pulse Rate 75 71 Respiratory 18 18 Rate Blood Pressure 90/45 94/54 O2 Sat by Pulse 95 100 Oximetry - Lab 11/27/18 04:39 11/28/18 05:40 Most recent lab results Calcium 12.5 mg/dL (8.4-10.2) H* 11/28/18 05:40 Phosphorus 5.00 mg/dL (2.5-4.5) H 11/27/18 04:39 Magnesium 2.10 mg/dL (1.7-2.3) 11/27/18 04:39 Medications & Allergies - Medications Allergies/Adverse Reactions: Allergies acetaminophen [From Vicodin] Adverse Reaction (Verified 05/01/15 11:19) Vomiting hydrocodone bitartrate [From Vicodin] Adverse Reaction (Verified 05/01/15 11:19) Vomiting Home Medications: Home Medications Medication Instructions Recorded Confirmed Last Taken Type raNITIdine HCl [Zantac 300 MG TAB] 300 mg PO QPM #14 tablet 12/31/15 11/25/18 Unknown Rx traMADol [Ultram] 50 mg PO Q6HR PRN #20 tablet 12/31/15 11/25/18 Unknown Rx Active Medications: Generic Name Dose Route Start Last Admin Trade Name [place] PRN Reason Stop Dose Admin Acetaminophen 650 mg 11/24/18 14:00 Tylenol PO Q4H PRN Pain MILD(1-3)/Fever >100.5/LAMBERT Albuterol 2.5 mg 11/24/18 14:00 Proventil IH Q4HRT PRN Shortness Of Breath Calcitonin [place] 200 unit 11/26/18 22:00 11/27/18 09:16 Miacalcin 4 unit/kg (200 unit) 200 unit IM Administration Q12HR [facility] Famotidine 10 mg 11/25/18 10:00 11/28/18 09:25 Pepcid PO Not Given BID [facility] Midodrine 10 mg 11/26/18 16:00 11/28/18 09:26 Proamatine PO Not Given TID@0800,1200,1600 [facility] Nitroglycerin 0.4 mg 11/25/18 01:02 Nitrostat SL .Q5MIN PRN Chest Pain Nitroglycerin 0.5 inch 11/25/18 06:00 11/27/18 18:41 Nitro-Bid 2% TP Not Given TIDNTG [facility] Protocol Ondansetron HCl 4 mg 11/24/18 14:00 11/27/18 11:03 Zofran IV 4 mg Q8H PRN Administration Nausea And Vomiting Sodium Chloride 10 ml 11/24/18 22:00 11/27/18 09:17 Sodium Chloride Flush Syringe 10 Ml IV 10 ml BID MAIRA Administration Sodium Chloride 10 ml 11/24/18 14:00 Sodium Chloride Flush Syringe 10 Ml IV PRN PRN LINE FLUSH Tramadol HCl 50 mg 11/24/18 14:01 11/27/18 03:28 Ultram PO 50 mg Q6HR PRN Administration PAIN
--- NOTE | 2018-11-28 10:20 | Progress Note ---
Assessment and Plan Assessment and plan: 68 YO Female with Nicotine Dependence, HTN, OA, HCV, Bipolar, Anxiety, Severe Malnutrition, ESRD on HD(T,R,Sa), Noncompliance with Dialysis presents to ED for evaluation. Patient was confused and unable to provide detailed history , so initial history taken from ED staff and patient son who is at bedside during exam and interview. 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 In ED and found to have ESRD, Acidosis, Encephalopathy, and Hyperkalemia secondary to missed dialysis sessions. Nephrology consulted in ED for urgent dialysis. ESRD (end stage renal disease) Nephrology consulted in ED, Electrolytes improved following Dialysis Elevated Troponin due to NSTEMI Type 2 Stress test was negative, cardiology following Acute Respiratory failure secondary Fluid overload Secondary to missed dialysis, supportive care, urgent dialysis. Wean oxygen, Acute metabolic Encephalopathy CT head is negative for acute disease Confusion improving Metabolic acidosis Plan to address problem: Corrected on IV bicarbonate therapy, Malnutrition Protein-calorie malnutrition severity: severe Increased protein intake, dietary supplementation. Osteoarthritis pain control, supportive care. Hyperkalemia Insulin, Dextrose 50% dialysis today discussed with Nephrology Hypotension on MIDODRINE Chronic Hep C Outpatient GI F/U care, Hypercalcemia Started on calcitonin Calcium 12.[address] Pastor and he recommends to only dc home if calcium < 12.0 g/dl DVT prophylaxis SCD to BLE while in bed, supportive care. Code status: Pt is full code Patient still not stable to discharge because of Hypercalcemia, hyperkalemia History Interval history: Less confusion Non compliant has not been completing dialysis some days Hospitalist Physical - Physical exam Narrative exam: Gen: Not in acute distress, sitting up in chair, malnourished HEENT: Normocephalic, atraumatic Neck: supple, no JVD Heart: S1 and S2 reg, no murmurs, rubs or gallop Lungs: Clear to auscultation, no rhonchi, no wheeze Abd: soft, non tender, non distended, normal BS, Ext: No edema, no clubbing, no cyanosis Neuro: Awake, alert, mild confused, no focal neurological signs - Constitutional Vitals: Temp Pulse Resp BP Pulse Ox 97.4 F L 71 18 94/54 100 11/28/18 08:01 11/28/18 08:01 11/28/18 08:01 11/28/18 08:01 11/28/18 08:01 General appearance: Present: no acute distress Results - Labs CBC & Chem 7: 11/27/18 04:39 11/28/18 05:40 Labs: Laboratory Last Values WBC 7.1 K/mm3 (4.5-11.0) 11/27/18 04:39 RBC 3.07 M/mm3 (3.65-5.03) L 11/27/18 04:39 Hgb 11.4 gm/dl (10.1-14.3) 11/27/18 04:39 Hct 34.4 % (30.3-42.9) 11/27/18 04:39 MCV 112 fl (79-97) H 11/27/18 04:39 MCH 37 pg (28-32) H 11/27/18 04:39 MCHC 33 % (30-34) 11/27/18 04:39 RDW 16.5 % (13.2-15.2) H 11/27/18 04:39 Plt Count 232 K/mm3 (140-440) 11/27/18 04:39 Lymph % (Auto) 12.5 % (13.4-35.0) L 11/27/18 04:39 [place] % (Auto) 10.8 % (0.0-7.3) H 11/27/18 04:39 Eos % (Auto) 3.0 % (0.0-4.3) 11/27/18 04:39 Baso % (Auto) 0.8 % (0.0-1.8) 11/27/18 04:39 Lymph # 0.9 K/mm3 (1.2-5.4) L 11/27/18 04:39 [place] # 0.8 K/mm3 (0.0-0.8) 11/27/18 04:39 Eos # 0.2 K/mm3 (0.0-0.4) 11/27/18 04:39 Baso # 0.1 K/mm3 (0.0-0.1) 11/27/18 04:39 Seg Neutrophils % 72.9 % (40.0-70.0) H 11/27/18 04:39 Seg Neutrophils # 5.2 K/mm3 (1.8-7.7) 11/27/18 04:39 PT 14.5 Sec. (12.2-14.9) 11/25/18 01:18 INR 1.16 (0.87-1.13) H 11/25/18 01:18 APTT 35.4 Sec. (24.2-36.6) 11/25/18 01:18 Heparin Anti-Xa Level < 0.10 U.I./ml (0.3-0.7) L 11/25/18 08:28 Sodium 137 mmol/L (137-145) 11/28/18 05:40 Potassium 6.7 mmol/L (3.6-5.0) H* D 11/28/18 05:40 Chloride 93.2 mmol/L (98-107) L 11/28/18 05:40 Carbon Dioxide 24 mmol/L (22-30) 11/28/18 05:40 Anion Gap 27 mmol/L 11/28/18 05:40 BUN 22 mg/dL (7-17) H 11/28/18 05:40 Creatinine 4.2 mg/dL (0.7-1.2) H 11/28/18 05:40 Estimated GFR 13 ml/min 11/28/18 05:40 BUN/Creatinine Ratio 5 % 11/28/18 05:40 Glucose 75 mg/dL (65-100) 11/28/18 05:40 POC Glucose 80 (70-105) 11/28/18 09:09 Calcium 12.5 mg/dL (8.4-10.2) H* 11/28/18 05:40 Phosphorus 5.00 mg/dL (2.5-4.5) H 11/27/18 04:39 Magnesium 2.10 mg/dL (1.7-2.3) 11/27/18 04:39 Total Bilirubin 0.40 mg/dL (0.1-1.2) 11/27/18 04:39 AST 38 units/L (5-40) 11/27/18 04:39 ALT 11 units/L (7-56) 11/27/18 04:39 Alkaline Phosphatase 96 units/L (35-129) 11/27/18 04:39 Ammonia 53.0 umol/L (25-60) 11/24/18 12:07 Troponin T 0.178 ng/mL (0.00-0.029) H* D 11/24/18 20:20 Total Protein 9.1 g/dL (6.3-8.2) H 11/27/18 04:39 Albumin 3.9 g/dL (3.9-5) 11/27/18 04:39 Albumin/Globulin Ratio 0.8 % 11/27/18 04:39 Triglycerides 54 mg/dL (2-149) 11/24/18 10:59 Cholesterol 126 mg/dL (50-199) 11/24/18 10:59 LDL Cholesterol Direct 52 mg/dL (50-130) 11/24/18 10:59 HDL Cholesterol 64 mg/dL (40-59) H 11/24/18 10:59 Cholesterol/HDL Ratio 1.96 % 11/24/18 10:59 TSH 0.533 mlU/mL (0.270-4.200) 11/24/18 12:07 Free T4 1.45 ng/dL (0.76-1.46) 11/24/18 12:07 PTH Intact 26.79 pg/mL (15-65) 11/26/18 12:45 Hepatitis A IgM Ab Non-reactive (NonReactive) 11/24/18 12:07 Hep Bs Antigen Non-reactive (Negative) 11/24/18 12:07 Hep B Core IgM Ab Non-reactive (NonReactive) 11/24/18 12:07 Hepatitis C Antibody Reactive (NonReactive) A 11/24/18 12:07 Active Medications - Current Medications Current Medications: Generic Name Dose Route Start Last Admin Trade Name Freq PRN Reason Stop Dose Admin Acetaminophen 650 mg 11/24/18 14:00 Tylenol PO Q4H PRN Pain MILD(1-3)/Fever >100.5/LAMBERT Albuterol 2.5 mg 11/24/18 14:00 Proventil IH Q4HRT PRN Shortness Of Breath Calcitonin [place] 200 unit 11/26/18 22:00 11/27/18 09:16 Miacalcin 4 unit/kg (200 unit) 200 unit IM Administration Q12HR MAIRA Famotidine 10 mg 11/25/18 10:00 11/28/18 09:25 Pepcid PO Not Given BID MAIRA Sodium Chloride 100 mls @ 999 mls/hr 11/28/18 10:02 Nacl 0.9% IV LOREN PRN Hypotension Midodrine 10 mg 11/26/18 16:00 11/28/18 09:26 Proamatine PO Not Given TID@0800,1200,1600 [facility] Nitroglycerin 0.4 mg 11/25/18 01:02 Nitrostat SL .Q5MIN PRN Chest Pain Nitroglycerin 0.5 inch 11/25/18 06:00 11/27/18 18:41 Nitro-Bid 2% TP Not Given [facility]G [facility] Protocol Ondansetron HCl 4 mg 11/24/18 14:00 11/27/18 11:03 Zofran IV 4 mg Q8H PRN Administration Nausea And Vomiting Sodium Chloride 10 ml 11/24/18 22:00 11/27/18 09:17 Sodium Chloride Flush Syringe 10 Ml IV 10 ml BID MAIRA Administration Sodium Chloride 10 ml 11/24/18 14:00 Sodium Chloride Flush Syringe 10 Ml IV PRN PRN LINE FLUSH Tramadol HCl 50 mg 11/24/18 14:01 11/27/18 03:28 Ultram PO 50 mg Q6HR PRN Administration PAIN Nutrition/Malnutrition Assess - Dietary Evaluation Nutrition/Malnutrition Findings: Nutrition Notes Start: 11/25/18 13:34 Freq: Status: Active Protocol: Document 11/25/18 13:34 OH (Rec: 11/25/18 13:46 OH [id number]) Nutrition Notes Need for Assessment generated from: manager materials management Initial or Follow up Assessment Current Diagnosis CKD (stage V CKD),Hypertension Other Pertinent Diagnosis bipolar, severe nutrition, non compliance w/ICHD tx, hep C, hyperkalemia Current Diet npo Labs/Tests alb 4.3 K+ 4.4 Pertinent Medications heparin Height 5 ft 4 in Weight 48.5 kg [place] Body Weight (kg) 54.54 BMI 18.3 Intake Prior to Admission Good Weight change and time frame Shopper weighed pt via bed. Weight Status Underweight Subjective/Other Information Pt. sitting up in bed requesting food. Pt. verbalized she was eating at home. She has had ONS previous and enjoyed. Clavicle /temporal wasting noted. Pt. in/out of conciousness. Pt answers questions then drifts back off to sleep. Percent of energy/protein needs met: 0/0% Burn Absent Trauma Absent GI Symptoms None Current % PO Negligible Minimum of two criteria N #1 Nutrition Diagnosis Inadequate oral intake Etiology poor po intake; metabolic acidosis; AMS As Evidenced by Signs and Symptoms npo Diagnosis Progress(for reassessment Continues documentation) Is patient on ventilator? No Is Patient Ambulatory and/or Out of Bed No [facility] 1200.048 Kcal/Kg value to use for calculation 35 Approximate Energy Requirements Using 1698 kcal/Kg Calculation Used for Recommendations Kcal/kg Additional Notes PRO: 1.2-1.3 G/KG 65-71 G/ DAY FLUID: 1 L/DAY IBW 54.5 KGS Nutrition Intervention Change Diet Order: Advance to renal diet per MD recommendation Add Supplement/Snack (indicate name/kcal nepro bid /protein ) Provides kCal: 850 Provides Protein (gm) 40 Goal #1 Advance diet to renal per MD recommendation Goal #2 po intake/ONS to exceed 75% at meals Anticipated Discharge Needs: renal dietary education Follow-Up By: 11/28/18 Additional Comments f/u diet advancement, po intake, ONS initiation- tolerance - Attestation Statement I have reviewed and agreed w/ Malnutrition eval & tx plan: Yes
[2018-11-28] MEDS: MIACALCIN IM SCH ×3 (10:29→22:49)
[2018-11-28] MEDS: SODIUM CHLORIDE FLUSH SYRINGE 10 ML IV SCH ×3 (10:34→22:49)
[2018-11-28] MEDS ORDERED: NACL 0.9 (PRIMING MACHINE ONLY DIALYSIS) MC ONE ×2 (11:22→11:23)
[2018-11-28] MEDS: NITRO-BID 2% TP SCH ×3 (12:43→22:49)
[2018-11-29] MEDS: ULTRAM PO PRN (01:08)
[2018-11-29] MEDS: TYLENOL PO PRN ×2 (03:31→22:27)
[2018-11-29 05:23] LABS: BUN/Creatinine Ratio 5; Blood Urea Nitrogen 15 mg/dL (7-17); Hemolysis Index 25
[2018-11-29 05:37] LABS: Calcium > 13.0 mg/dL (8.4-10.2)
[2018-11-29] MEDS: NITRO-BID 2% TP SCH ×3 (06:10→19:11)
[2018-11-29] MEDS: PROAMATINE PO SCH ×3 (08:10→16:45)
[2018-11-29] MEDS: PEPCID PO SCH ×2 (09:23→22:27)
[2018-11-29] MEDS: SODIUM CHLORIDE FLUSH SYRINGE 10 ML IV SCH ×2 (09:24→23:28)
[2018-11-29] MEDS: MIACALCIN IM SCH ×2 (09:25→22:29)
--- NOTE | 2018-11-29 10:04 | Progress Note ---
Assessment and Plan IMpresion: * ESRD * history of HTN * hypotension * Hep C * hypercalcemia * Pulm edema * Noncompliance with hd Plan: * HD q mwf * calcium noted, continue calcitonin * low calcium bath with hd * follow up ross and spep. PTH is low * high calcium may be immobility * arrange outpatient hd * patient not staying on hd as rx'd * added midodrine, cards following * uf as tolerated * daily lytes * renal diet * stress compliance with medical regimen Subjective Date of service: 11/29/18 Principal diagnosis: ESRD on HD, acute respiratory failure, metabolic encephalopathy Interval history: resting in bed today Objective - Exam Narrative Exam: General appearance: well-developed, well-nourished EENT: ATNC, PERRL Neck: Present: JVD/HJR Respiratory: Rales, Ronchi, Decreased Breath Sounds Heart: regular, S1S2 Gastrointestinal: Present: normal, normoactive bowel sounds Integumentary: no rash Neurologic: alert and oriented x3, CN 3-12 intact Musculoskeletal: Present: deferred Psychiatric: mood/affect appropriate - Vital Signs Vital signs: Vital Signs - 12hr 11/29/18 11/29/18 01:53 07:16 Temperature 98.9 F 98.0 F Pulse Rate 81 86 Respiratory 18 18 Rate Blood Pressure 106/60 112/69 O2 Sat by Pulse 94 100 Oximetry - Lab 11/27/18 04:39 11/29/18 03:37 Most recent lab results Calcium > 13.0 mg/dL (8.4-10.2) H* 11/29/18 03:37 Phosphorus 5.00 mg/dL (2.5-4.5) H 11/27/18 04:39 Magnesium 2.10 mg/dL (1.7-2.3) 11/27/18 04:39 Medications & Allergies - Medications Allergies/Adverse Reactions: Allergies acetaminophen [From Vicodin] Adverse Reaction (Verified 05/01/15 11:19) Vomiting hydrocodone bitartrate [From Vicodin] Adverse Reaction (Verified 05/01/15 11:19) Vomiting Home Medications: Home Medications Medication Instructions Recorded Confirmed Last Taken Type raNITIdine HCl [Zantac 300 MG TAB] 300 mg PO QPM #14 tablet 12/31/15 11/25/18 Unknown Rx traMADol [Ultram] 50 mg PO Q6HR PRN #20 tablet 12/31/15 11/25/18 Unknown Rx Active Medications: Generic Name Dose Route Start Last Admin Trade Name Josesito PRN Reason Stop Dose Admin Acetaminophen 650 mg 11/24/18 14:00 11/29/18 03:31 Tylenol PO 650 mg Q4H PRN Administration Pain MILD(1-3)/Fever >100.5/LAMBERT Albuterol 2.5 mg 11/24/18 14:00 Proventil IH Q4HRT PRN Shortness Of Breath Calcitonin [place] 200 unit 11/26/18 22:00 11/29/18 09:25 Miacalcin 4 unit/kg (200 unit) 200 unit IM Administration Q12HR [facility] Famotidine 10 mg 11/25/18 10:00 11/29/18 09:23 Pepcid PO 10 mg BID [facility] Administration Sodium Chloride 100 mls @ 999 mls/hr 11/28/18 10:02 Nacl 0.9% IV LOREN PRN Hypotension Midodrine 10 mg 11/26/18 16:00 11/29/18 08:10 Proamatine PO 10 mg TID@0800,1200,1600 MAIRA Administration Nitroglycerin 0.4 mg 11/25/18 01:02 Nitrostat SL .Q5MIN PRN Chest Pain Nitroglycerin 0.5 inch 11/25/18 06:00 11/29/18 06:10 Nitro-Bid 2% TP Not Given TIDNTG [facility] Protocol Ondansetron HCl 4 mg 11/24/18 14:00 11/27/18 11:03 Zofran IV 4 mg Q8H PRN Administration Nausea And Vomiting Sodium Chloride 10 ml 11/24/18 22:00 11/29/18 09:24 Sodium Chloride Flush Syringe 10 Ml IV 10 ml BID MAIRA Administration Sodium Chloride 10 ml 11/24/18 14:00 Sodium Chloride Flush Syringe 10 Ml IV PRN PRN LINE FLUSH Tramadol HCl 50 mg 11/24/18 14:01 11/27/18 03:28 Ultram PO 50 mg Q6HR PRN Administration PAIN
--- NOTE | 2018-11-29 13:20 | Progress Note ---
Assessment and Plan Assessment and plan: 68 YO Female with Nicotine Dependence, HTN, OA, HCV, Bipolar, Anxiety, Severe Malnutrition, ESRD on HD(T,R,Sa), Noncompliance with Dialysis presents to ED for evaluation. Patient was confused and unable to provide detailed history , so initial history taken from ED staff and patient son who is at bedside during exam and interview. 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 In ED and found to have ESRD, Acidosis, Encephalopathy, and Hyperkalemia secondary to missed dialysis sessions. Nephrology consulted in ED for urgent dialysis. ESRD (end stage renal disease) Nephrology consulted in ED, Electrolytes improved following Dialysis Elevated Troponin due to NSTEMI Type 2 Stress test was negative, cardiology following Acute Respiratory failure secondary Fluid overload Secondary to missed dialysis, supportive care, urgent dialysis. Wean oxygen, Acute metabolic Encephalopathy CT head is negative for acute disease Confusion improving Metabolic acidosis Plan to address problem: Corrected on IV bicarbonate therapy, Malnutrition Protein-calorie malnutrition severity: severe Increased protein intake, dietary supplementation. Osteoarthritis pain control, supportive care. Hyperkalemia Now resolved Insulin, Dextrose 50% dialysis 11/28/18 discussed with Nephrology Hypotension on MIDODRINE Chronic Hep C Outpatient GI F/U care, Hypercalcemia Cont calcitonin Calcium > [address] Pastor and he recommends to only dc home if calcium < 12.0 g/dl DVT prophylaxis SCD to BLE while in bed, supportive care. Code status: Pt is full code Patient still not stable to discharge because of Hypercalcemia. History Interval history: Less confusion Non compliant has not been completing dialysis some days Hospitalist Physical - Physical exam Narrative exam: Gen: Not in acute distress, sitting up in chair, malnourished HEENT: Normocephalic, atraumatic Neck: supple, no JVD Heart: S1 and S2 reg, no murmurs, rubs or gallop Lungs: Clear to auscultation, no rhonchi, no wheeze Abd: soft, non tender, non distended, normal BS, Ext: No edema, no clubbing, no cyanosis Neuro: Awake, alert, mild confused, no focal neurological signs - Constitutional Vitals: Temp Pulse Resp BP Pulse Ox 98.0 F 83 18 133/77 100 11/29/18 07:16 11/29/18 12:16 11/29/18 10:00 11/29/18 12:16 11/29/18 10:00 General appearance: Present: no acute distress Results - Labs CBC & Chem 7: 11/27/18 04:39 11/29/18 03:37 Labs: Laboratory Last Values WBC 7.1 K/mm3 (4.5-11.0) 11/27/18 04:39 RBC 3.07 M/mm3 (3.65-5.03) L 11/27/18 04:39 Hgb 11.4 gm/dl (10.1-14.3) 11/27/18 04:39 Hct 34.4 % (30.3-42.9) 11/27/18 04:39 MCV 112 fl (79-97) H 11/27/18 04:39 MCH 37 pg (28-32) H 11/27/18 04:39 MCHC 33 % (30-34) 11/27/18 04:39 RDW 16.5 % (13.2-15.2) H 11/27/18 04:39 Plt Count 232 K/mm3 (140-440) 11/27/18 04:39 Lymph % (Auto) 12.5 % (13.4-35.0) L 11/27/18 04:39 [place] % (Auto) 10.8 % (0.0-7.3) H 11/27/18 04:39 Eos % (Auto) 3.0 % (0.0-4.3) 11/27/18 04:39 Baso % (Auto) 0.8 % (0.0-1.8) 11/27/18 04:39 Lymph # 0.9 K/mm3 (1.2-5.4) L 11/27/18 04:39 [place] # 0.8 K/mm3 (0.0-0.8) 11/27/18 04:39 Eos # 0.2 K/mm3 (0.0-0.4) 11/27/18 04:39 Baso # 0.1 K/mm3 (0.0-0.1) 11/27/18 04:39 Seg Neutrophils % 72.9 % (40.0-70.0) H 11/27/18 04:39 Seg Neutrophils # 5.2 K/mm3 (1.8-7.7) 11/27/18 04:39 PT 14.5 Sec. (12.2-14.9) 11/25/18 01:18 INR 1.16 (0.87-1.13) H 11/25/18 01:18 APTT 35.4 Sec. (24.2-36.6) 11/25/18 01:18 Heparin Anti-Xa Level < 0.10 U.I./ml (0.3-0.7) L 11/25/18 08:28 Sodium 136 mmol/L (137-145) L 11/29/18 03:37 Potassium 4.1 mmol/L (3.6-5.0) 11/29/18 03:37 Chloride 92.7 mmol/L (98-107) L 11/29/18 03:37 Carbon Dioxide 25 mmol/L (22-30) 11/29/18 03:37 Anion Gap 22 mmol/L 11/29/18 03:37 BUN 15 mg/dL (7-17) 11/29/18 03:37 Creatinine 3.1 mg/dL (0.7-1.2) H 11/29/18 03:37 Estimated GFR 18 ml/min 11/29/18 03:37 BUN/Creatinine Ratio 5 % 11/29/18 03:37 Glucose 82 mg/dL (65-100) 11/29/18 03:37 POC Glucose 80 (70-105) 11/28/18 09:09 Calcium > 13.0 mg/dL (8.4-10.2) H* 11/29/18 03:37 Phosphorus 5.00 mg/dL (2.5-4.5) H 11/27/18 04:39 Magnesium 2.10 mg/dL (1.7-2.3) 11/27/18 04:39 Total Bilirubin 0.40 mg/dL (0.1-1.2) 11/27/18 04:39 AST 38 units/L (5-40) 11/27/18 04:39 ALT 11 units/L (7-56) 11/27/18 04:39 Alkaline Phosphatase 96 units/L (35-129) 11/27/18 04:39 Ammonia 53.0 umol/L (25-60) 11/24/18 12:07 Troponin T 0.178 ng/mL (0.00-0.029) H* D 11/24/18 20:20 Total Protein 9.1 g/dL (6.3-8.2) H 11/27/18 04:39 Albumin 3.9 g/dL (3.9-5) 11/27/18 04:39 Albumin/Globulin Ratio 0.8 % 11/27/18 04:39 Triglycerides 54 mg/dL (2-149) 11/24/18 10:59 Cholesterol 126 mg/dL (50-199) 11/24/18 10:59 LDL Cholesterol Direct 52 mg/dL (50-130) 11/24/18 10:59 HDL Cholesterol 64 mg/dL (40-59) H 11/24/18 10:59 Cholesterol/HDL Ratio 1.96 % 11/24/18 10:59 TSH 0.533 mlU/mL (0.270-4.200) 11/24/18 12:07 Free T4 1.45 ng/dL (0.76-1.46) 11/24/18 12:07 PTH Intact 26.79 pg/mL (15-65) 11/26/18 12:45 Hepatitis A IgM Ab Non-reactive (NonReactive) 11/24/18 12:07 Hep Bs Antigen Non-reactive (Negative) 11/24/18 12:07 Hep B Core IgM Ab Non-reactive (NonReactive) 11/24/18 12:07 Hepatitis C Antibody Reactive (NonReactive) A 11/24/18 12:07 Active Medications - Current Medications Current Medications: Generic Name Dose Route Start Last Admin Trade Name Freq PRN Reason Stop Dose Admin Acetaminophen 650 mg 11/24/18 14:00 11/29/18 03:31 Tylenol PO 650 mg Q4H PRN Administration Pain MILD(1-3)/Fever >100.5/LAMBERT Albuterol 2.5 mg 11/24/18 14:00 Proventil IH Q4HRT PRN Shortness Of Breath Calcitonin [place] 200 unit 11/26/18 22:00 11/29/18 09:25 Miacalcin 4 unit/kg (200 unit) 200 unit IM Administration Q12HR MAIRA Famotidine 10 mg 11/25/18 10:00 11/29/18 09:23 Pepcid PO 10 mg BID MAIRA Administration Sodium Chloride 100 mls @ 999 mls/hr 11/28/18 10:02 Nacl 0.9% IV LOREN PRN Hypotension Midodrine 10 mg 11/26/18 16:00 11/29/18 12:17 Proamatine PO 10 mg TID@0800,1200,1600 MAIRA Administration Nitroglycerin 0.4 mg 11/25/18 01:02 Nitrostat SL .Q5MIN PRN Chest Pain Nitroglycerin 0.5 inch 11/25/18 06:00 11/29/18 12:16 Nitro-Bid 2% TP 0.5 inch TIDNTG MAIRA Administration Protocol Ondansetron HCl 4 mg 11/24/18 14:00 11/27/18 11:03 Zofran IV 4 mg Q8H PRN Administration Nausea And Vomiting Sodium Chloride 10 ml 11/24/18 22:00 11/29/18 09:24 Sodium Chloride Flush Syringe 10 Ml IV 10 ml BID MAIRA Administration Sodium Chloride 10 ml 11/24/18 14:00 Sodium Chloride Flush Syringe 10 Ml IV PRN PRN LINE FLUSH Tramadol HCl 50 mg 11/24/18 14:01 11/27/18 03:28 Ultram PO 50 mg Q6HR PRN Administration PAIN Nutrition/Malnutrition Assess - Dietary Evaluation Nutrition/Malnutrition Findings: Nutrition Notes Start: 11/25/18 13:34 Freq: Status: Active Protocol: Document 11/28/18 13:25 RS (Rec: 11/28/18 13:44 RS [id number]) Co-Sign 11/28/18 13:25 LM Nutrition Notes Initial or Follow up Reassessment Current Diagnosis CKD (stage V CKD),Hypertension Other Pertinent Diagnosis bipolar, severe nutrition, non compliance w/ICHD tx, hep C, hyperkalemia Current Diet Renal Labs/Tests K+: 6.7 Pertinent Medications reviewed Height 5 ft 4 in Weight 44.951 kg [place] Body Weight (kg) 54.54 BMI 16.9 Weight change and time frame wt change of 3.6kg d/t HD Weight Status Underweight Subjective/Other Information F/U for PO intake. Pt was disoriented and asked for MD when asked questions regarding nutrition. Observed pt ate 0% of breakfast tray. According to nurse, no ONS was delivered to pt. Percent of energy/protein needs met: 0%/0% Burn Absent Trauma Absent Current % PO Negligible #1 Nutrition Diagnosis Inadequate oral intake As Evidenced by Signs and Symptoms pt eating 0% of breakfast Diagnosis Progress(for reassessment Continues documentation) Is patient on ventilator? No Is Patient Ambulatory and/or Out of Bed No REE-([facility]-confined to bed) 1157.496 Kcal/Kg value to use for calculation 35 Approximate Energy Requirements Using 1573 kcal/Kg Calculation Used for Recommendations Kcal/kg Additional Notes PRO needs >1.2 g/kg/day Fluid needs: 1-1.5L/day Nutrition Intervention Change Diet Order: Continue renal diet + ONS Add Supplement/Snack (indicate name/kcal nepro butter pecan BID /protein ) Provides kCal: 850 Provides Protein (gm) 40 Goal #1 Meet 75% of kcal/PRO needs via PO/ONS intake Goal #2 weight gain/maintence Anticipated Discharge Needs: renal diet Follow-Up By: 12/02/18 Additional Comments F/U for PO intake and ONS tolerance
[2018-11-29] MEDS: ZOFRAN IV PRN (16:36)
[2018-11-30] MEDS: NITRO-BID 2% TP SCH ×3 (05:18→18:01)
[2018-11-30 05:32] LABS: BUN/Creatinine Ratio 6; Blood Urea Nitrogen 20 mg/dL (7-17); Hemolysis Index 2
[2018-11-30 05:54] LABS: Calcium > 13.0 mg/dL (8.4-10.2)
--- NOTE | 2018-11-30 08:21 | Progress Note ---
Assessment and Plan IMpresion: * ESRD * history of HTN * hypotension * Hep C * hypercalcemia * Pulm edema * Noncompliance with hd Plan: * HD q mwf * calcium noted, continue calcitonin, increase dose * aredia x one dose * low calcium bath with hd * follow up ross and spep. PTH is low * high calcium may be immobility * arrange outpatient hd * patient not staying on hd as rx'd * added midodrine, cards following * uf as tolerated * daily lytes * renal diet * stress compliance with medical regimen Subjective Date of service: 11/30/18 Principal diagnosis: ESRD on HD, acute respiratory failure, metabolic encepha lopathy Interval history: resting in bed today Objective - Exam Narrative Exam: General appearance: well-developed, well-nourished EENT: ATNC, PERRL Neck: Present: JVD/HJR Respiratory: Rales, Ronchi, Decreased Breath Sounds Heart: regular, S1S2 Gastrointestinal: Present: normal, normoactive bowel sounds Integumentary: no rash Neurologic: alert and oriented x3, CN 3-12 intact Musculoskeletal: Present: deferred Psychiatric: mood/affect appropriate - Vital Signs Vital signs: Vital Signs - 12hr 11/29/18 11/29/18 11/30/18 21:00 22:00 01:39 Temperature 98.4 F Pulse Rate 84 84 85 Pulse Rate [ 84 From Monitor] Respiratory 18 20 Rate Blood Pressure 114/75 O2 Sat by Pulse 98 98 99 Oximetry 11/30/18 05:18 Temperature Pulse Rate 85 Pulse Rate [ From Monitor] Respiratory Rate Blood Pressure 114/75 O2 Sat by Pulse Oximetry - Lab 11/27/18 04:39 11/30/18 04:09 Most recent lab results Calcium > 13.0 mg/dL (8.4-10.2) H* 11/30/18 04:09 Phosphorus 5.00 mg/dL (2.5-4.5) H 11/27/18 04:39 Magnesium 2.10 mg/dL (1.7-2.3) 11/27/18 04:39 Medications & Allergies - Medications Allergies/Adverse Reactions: Allergies acetaminophen [From Vicodin] Adverse Reaction (Verified 05/01/15 11:19) Vomiting hydrocodone bitartrate [From Vicodin] Adverse Reaction (Verified 05/01/15 11:19) Vomiting Home Medications: Home Medications Medication Instructions Recorded Confirmed Last Taken Type raNITIdine HCl [Zantac 300 MG TAB] 300 mg PO QPM #14 tablet 12/31/15 11/25/18 Unknown Rx traMADol [Ultram] 50 mg PO Q6HR PRN #20 tablet 12/31/15 11/25/18 Unknown Rx Active Medications: Generic Name Dose Route Start Last Admin Trade Name Freq PRN Reason Stop Dose Admin Acetaminophen 650 mg 11/24/18 14:00 11/29/18 22:27 Tylenol PO 650 mg Q4H PRN Administration Pain MILD(1-3)/Fever >100.5/LAMBERT Albuterol 2.5 mg 11/24/18 14:00 Proventil IH Q4HRT PRN Shortness Of Breath Calcitonin [place] 400 unit 11/30/18 08:20 Miacalcin IM Q12HR MAIRA Famotidine 10 mg 11/25/18 10:00 11/29/18 22:27 Pepcid PO 10 mg BID MAIRA Administration Sodium Chloride 100 mls @ 999 mls/hr 11/28/18 10:02 Nacl 0.9% IV LOREN PRN Hypotension Midodrine 10 mg 11/26/18 16:00 11/29/18 16:45 Proamatine PO Not Given TID@0800,1200,1600 MAIRA Nitroglycerin 0.4 mg 11/25/18 01:02 Nitrostat SL .Q5MIN PRN Chest Pain Nitroglycerin 0.5 inch 11/25/18 06:00 11/30/18 05:18 Nitro-Bid 2% TP 0.5 inch TIDNTG MAIRA Administration Protocol Ondansetron HCl 4 mg 11/24/18 14:00 11/29/18 16:36 Zofran IV 4 mg Q8H PRN Administration Nausea And Vomiting Sodium Chloride 10 ml 11/24/18 22:00 11/29/18 23:28 Sodium Chloride Flush Syringe 10 Ml IV 10 ml BID MAIRA Administration Sodium Chloride 10 ml 11/24/18 14:00 Sodium Chloride Flush Syringe 10 Ml IV PRN PRN LINE FLUSH Tramadol HCl 50 mg 11/24/18 14:01 11/27/18 03:28 Ultram PO 50 mg Q6HR PRN Administration PAIN
[2018-11-30] MEDS ORDERED: NACL 0.9% IV SCH (09:00)
[2018-11-30] MEDS ORDERED: AREDIA IV SCH (09:00)
[2018-11-30] MEDS ORDERED: AREDIA IV ONE (09:30)
[2018-11-30] MEDS ORDERED: NACL 0.9% IV ONE (09:30)
[2018-11-30] MEDS: PROAMATINE PO SCH ×3 (09:50→18:01)
[2018-11-30] MEDS: PEPCID PO SCH ×2 (09:50→22:09)
[2018-11-30] MEDS: MIACALCIN IM SCH ×2 (09:50→22:13)
[2018-11-30] MEDS: SODIUM CHLORIDE FLUSH SYRINGE 10 ML IV SCH ×2 (09:51→22:14)
[2018-11-30] MEDS ORDERED: NACL 0.9% 100 ML IV PRN (10:33)
--- NOTE | 2018-11-30 12:41 | Progress Note ---
Assessment and Plan Assessment and plan: 68 YO Female with Nicotine Dependence, HTN, OA, HCV, Bipolar, Anxiety, Severe Malnutrition, ESRD on HD(T,R,Sa), Noncompliance with Dialysis presents to ED for evaluation. Patient was confused and unable to provide detailed history , so initial history taken from ED staff and patient son who is at bedside during exam and interview. 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 In ED and found to have ESRD, Acidosis, Encephalopathy, and Hyperkalemia secondary to missed dialysis sessions. Nephrology consulted in ED for urgent dialysis. ESRD (end stage renal disease) Nephrology consulted in ED, Electrolytes improved following Dialysis Elevated Troponin due to NSTEMI Type 2 Stress test was negative, cardiology following Acute Respiratory failure secondary Fluid overload Secondary to missed dialysis, supportive care, urgent dialysis. Wean oxygen, Acute metabolic Encephalopathy CT head is negative for acute disease Confusion improving Metabolic acidosis Plan to address problem: Corrected on IV bicarbonate therapy, Malnutrition Protein-calorie malnutrition severity: severe Increased protein intake, dietary supplementation. Osteoarthritis pain control, supportive care. Hyperkalemia Now resolved Insulin, Dextrose 50% dialysis 11/28/18 discussed with Nephrology Hypotension on MIDODRINE Chronic Hep C Outpatient GI F/U care, Hypercalcemia Cont calcitonin Calcium > [address] Pastor and he recommends to only dc home if calcium < 12.0 g/dl Dose of calcitonin increased DVT prophylaxis SCD to BLE while in bed, supportive care. Code status: Pt is full code Patient still not stable to discharge because of Hypercalcemia. History Interval history: Less confusion Non compliant Hospitalist Physical - Physical exam Narrative exam: Gen: Not in acute distress, sitting up in chair, malnourished HEENT: Normocephalic, atraumatic Neck: supple, no JVD Heart: S1 and S2 reg, no murmurs, rubs or gallop Lungs: Clear to auscultation, no rhonchi, no wheeze Abd: soft, non tender, non distended, normal BS, Ext: No edema, no clubbing, no cyanosis Neuro: Awake, alert, mild confused, no focal neurological signs - Constitutional Vitals: Temp Pulse Resp BP Pulse Ox 98.4 F 90 20 114/75 99 11/30/18 01:39 11/30/18 10:00 11/30/18 01:39 11/30/18 05:18 11/30/18 01:39 General appearance: Present: no acute distress Results - Labs CBC & Chem 7: 11/27/18 04:39 11/30/18 04:09 Labs: Laboratory Last Values WBC 7.1 K/mm3 (4.5-11.0) 11/27/18 04:39 RBC 3.07 M/mm3 (3.65-5.03) L 11/27/18 04:39 Hgb 11.4 gm/dl (10.1-14.3) 11/27/18 04:39 Hct 34.4 % (30.3-42.9) 11/27/18 04:39 MCV 112 fl (79-97) H 11/27/18 04:39 MCH 37 pg (28-32) H 11/27/18 04:39 MCHC 33 % (30-34) 11/27/18 04:39 RDW 16.5 % (13.2-15.2) H 11/27/18 04:39 Plt Count 232 K/mm3 (140-440) 11/27/18 04:39 Lymph % (Auto) 12.5 % (13.4-35.0) L 11/27/18 04:39 [place] % (Auto) 10.8 % (0.0-7.3) H 11/27/18 04:39 Eos % (Auto) 3.0 % (0.0-4.3) 11/27/18 04:39 Baso % (Auto) 0.8 % (0.0-1.8) 11/27/18 04:39 Lymph # 0.9 K/mm3 (1.2-5.4) L 11/27/18 04:39 [place] # 0.8 K/mm3 (0.0-0.8) 11/27/18 04:39 Eos # 0.2 K/mm3 (0.0-0.4) 11/27/18 04:39 Baso # 0.1 K/mm3 (0.0-0.1) 11/27/18 04:39 Seg Neutrophils % 72.9 % (40.0-70.0) H 11/27/18 04:39 Seg Neutrophils # 5.2 K/mm3 (1.8-7.7) 11/27/18 04:39 PT 14.5 Sec. (12.2-14.9) 11/25/18 01:18 INR 1.16 (0.87-1.13) H 11/25/18 01:18 APTT 35.4 Sec. (24.2-36.6) 11/25/18 01:18 Heparin Anti-Xa Level < 0.10 U.I./ml (0.3-0.7) L 11/25/18 08:28 Sodium 139 mmol/L (137-145) 11/30/18 04:09 Potassium 3.8 mmol/L (3.6-5.0) 11/30/18 04:09 Chloride 94.4 mmol/L (98-107) L 11/30/18 04:09 Carbon Dioxide 24 mmol/L (22-30) 11/30/18 04:09 Anion Gap 24 mmol/L 11/30/18 04:09 BUN 20 mg/dL (7-17) H 11/30/18 04:09 Creatinine 3.1 mg/dL (0.7-1.2) H 11/30/18 04:09 Estimated GFR 18 ml/min 11/30/18 04:09 BUN/Creatinine Ratio 6 % 11/30/18 04:09 Glucose 90 mg/dL (65-100) 11/30/18 04:09 POC Glucose 80 (70-105) 11/28/18 09:09 Calcium > 13.0 mg/dL (8.4-10.2) H* 11/30/18 04:09 Phosphorus 5.00 mg/dL (2.5-4.5) H 11/27/18 04:39 Magnesium 2.10 mg/dL (1.7-2.3) 11/27/18 04:39 Total Bilirubin 0.40 mg/dL (0.1-1.2) 11/27/18 04:39 AST 38 units/L (5-40) 11/27/18 04:39 ALT 11 units/L (7-56) 11/27/18 04:39 Alkaline Phosphatase 96 units/L (35-129) 11/27/18 04:39 Ammonia 53.0 umol/L (25-60) 11/24/18 12:07 Troponin T 0.178 ng/mL (0.00-0.029) H* D 11/24/18 20:20 Total Protein 9.1 g/dL (6.3-8.2) H 11/27/18 04:39 Albumin 3.9 g/dL (3.9-5) 11/27/18 04:39 Albumin/Globulin Ratio 0.8 % 11/27/18 04:39 Triglycerides 54 mg/dL (2-149) 11/24/18 10:59 Cholesterol 126 mg/dL (50-199) 11/24/18 10:59 LDL Cholesterol Direct 52 mg/dL (50-130) 11/24/18 10:59 HDL Cholesterol 64 mg/dL (40-59) H 11/24/18 10:59 Cholesterol/HDL Ratio 1.96 % 11/24/18 10:59 TSH 0.533 mlU/mL (0.270-4.200) 11/24/18 12:07 Free T4 1.45 ng/dL (0.76-1.46) 11/24/18 12:07 PTH Intact 26.79 pg/mL (15-65) 11/26/18 12:45 Hepatitis A IgM Ab Non-reactive (NonReactive) 11/24/18 12:07 Hep Bs Antigen Non-reactive (Negative) 11/24/18 12:07 Hep B Core IgM Ab Non-reactive (NonReactive) 11/24/18 12:07 Hepatitis C Antibody Reactive (NonReactive) A 11/24/18 12:07 Active Medications - Current Medications Current Medications: Generic Name Dose Route Start Last Admin Trade Name Freq PRN Reason Stop Dose Admin Acetaminophen 650 mg 11/24/18 14:00 11/29/18 22:27 Tylenol PO 650 mg Q4H PRN Administration Pain MILD(1-3)/Fever >100.5/LAMBERT Albuterol 2.5 mg 11/24/18 14:00 Proventil IH Q4HRT PRN Shortness Of Breath Calcitonin [place] 400 unit 11/30/18 08:20 11/30/18 09:50 Miacalcin IM 400 unit Q12HR MAIRA Administration Famotidine 10 mg 11/25/18 10:00 11/30/18 09:50 Pepcid PO 10 mg BID MAIRA Administration Pamidronate Disodium 30 mg/ 503.3333 mls @ 125 mls/hr 11/30/18 09:30 11/30/18 09:50 Sodium Chloride IV 11/30/18 13:31 125 mls/hr ONCE ONE Administration Sodium Chloride 100 mls @ 999 mls/hr 11/30/18 10:33 Nacl 0.9% IV LOREN PRN Hypotension Midodrine 10 mg 11/26/18 16:00 11/30/18 09:50 Proamatine PO 10 mg TID@0800,1200,1600 MAIRA Administration Nitroglycerin 0.4 mg 11/25/18 01:02 Nitrostat SL .Q5MIN PRN Chest Pain Nitroglycerin 0.5 inch 11/25/18 06:00 11/30/18 05:18 Nitro-Bid 2% TP 0.5 inch TIDNTG MAIRA Administration Protocol Ondansetron HCl 4 mg 11/24/18 14:00 11/29/18 16:36 Zofran IV 4 mg Q8H PRN Administration Nausea And Vomiting Sodium Chloride 10 ml 11/24/18 22:00 11/30/18 09:51 Sodium Chloride Flush Syringe 10 Ml IV 10 ml BID MAIRA Administration Sodium Chloride 10 ml 11/24/18 14:00 Sodium Chloride Flush Syringe 10 Ml IV PRN PRN LINE FLUSH Tramadol HCl 50 mg 11/24/18 14:01 11/27/18 03:28 Ultram PO 50 mg Q6HR PRN Administration PAIN Nutrition/Malnutrition Assess - Dietary Evaluation Nutrition/Malnutrition Findings: Nutrition Notes Start: 11/25/18 13:34 Freq: Status: Active Protocol: Document 11/28/18 13:25 RS (Rec: 11/28/18 13:44 RS [id number]) Co-Sign 11/28/18 13:25 LM Nutrition Notes Initial or Follow up Reassessment Current Diagnosis CKD (stage V CKD),Hypertension Other Pertinent Diagnosis bipolar, severe nutrition, non compliance w/ICHD tx, hep C, hyperkalemia Current Diet Renal Labs/Tests K+: 6.7 Pertinent Medications reviewed Height 5 ft 4 in Weight 44.951 kg [place] Body Weight (kg) 54.54 BMI 16.9 Weight change and time frame wt change of 3.6kg d/t HD Weight Status Underweight Subjective/Other Information F/U for PO intake. Pt was disoriented and asked for MD when asked questions regarding nutrition. Observed pt ate 0% of breakfast tray. According to nurse, no ONS was delivered to pt. Percent of energy/protein needs met: 0%/0% Burn Absent Trauma Absent Current % PO Negligible #1 Nutrition Diagnosis Inadequate oral intake As Evidenced by Signs and Symptoms pt eating 0% of breakfast Diagnosis Progress(for reassessment Continues documentation) Is patient on ventilator? No Is Patient Ambulatory and/or Out of Bed No REE-([place]-confined to bed) 1157.496 Kcal/Kg value to use for calculation 35 Approximate Energy Requirements Using 1573 kcal/Kg Calculation Used for Recommendations Kcal/kg Additional Notes PRO needs >1.2 g/kg/day Fluid needs: 1-1.5L/day Nutrition Intervention Change Diet Order: Continue renal diet + ONS Add Supplement/Snack (indicate name/kcal nepro butter pecan BID /protein ) Provides kCal: 850 Provides Protein (gm) 40 Goal #1 Meet 75% of kcal/PRO needs via PO/ONS intake Goal #2 weight gain/maintence Anticipated Discharge Needs: renal diet Follow-Up By: 12/02/18 Additional Comments F/U for PO intake and ONS tolerance
[2018-11-30] MEDS: ZOFRAN IV PRN (18:01)
[2018-11-30] MEDS: HEPARIN SUB-Q SCH (22:10)
[2018-11-30] MEDS: ULTRAM PO PRN (22:21)
[2018-12-01] MEDS: NITRO-BID 2% TP SCH ×3 (06:05→17:54)
[2018-12-01 06:10] LABS: Calcium 12.8 mg/dL (8.4-10.2)
[2018-12-01] MEDS ORDERED: AREDIA IV ONE (09:24)
[2018-12-01] MEDS ORDERED: NACL 0.9% IV ONE (09:24)
--- NOTE | 2018-12-01 09:25 | Progress Note ---
Assessment and Plan IMpresion: * ESRD * history of HTN * hypotension * Hep C * hypercalcemia * Pulm edema * Noncompliance with hd Plan: * HD q mwf * calcium noted, continue calcitonin, increase dose * aredia x one dose * low calcium bath with hd * follow up ross and spep. PTH is low * high calcium may be immobility * arrange outpatient hd * patient not staying on hd as rx'd * added midodrine, cards following * uf as tolerated * daily lytes * renal diet * stress compliance with medical regimen Subjective Date of service: 12/01/18 Principal diagnosis: ESRD on HD, acute respiratory failure, metabolic encepha lopathy Interval history: resting in bed today Objective - Exam Narrative Exam: General appearance: well-developed, well-nourished EENT: ATNC, PERRL Neck: Present: JVD/HJR Respiratory: Rales, Ronchi, Decreased Breath Sounds Heart: regular, S1S2 Gastrointestinal: Present: normal, normoactive bowel sounds Integumentary: no rash Neurologic: alert and oriented x3, CN 3-12 intact Musculoskeletal: Present: deferred Psychiatric: mood/affect appropriate - Vital Signs Vital signs: Vital Signs - 12hr 11/30/18 11/30/18 11/30/18 22:00 22:21 23:21 Temperature Pulse Rate 82 Pulse Rate [ 82 Apical] Respiratory 18 16 Rate Blood Pressure O2 Sat by Pulse 98 Oximetry 12/01/18 12/01/18 12/01/18 03:19 04:43 07:26 Temperature 97.6 F 98.3 F Pulse Rate 88 88 84 Pulse Rate [ Apical] Respiratory 18 18 Rate Blood Pressure 139/81 136/72 O2 Sat by Pulse 99 98 Oximetry - Lab 11/27/18 04:39 12/01/18 05:07 Most recent lab results Calcium 12.8 mg/dL (8.4-10.2) H* 12/01/18 05:07 Phosphorus 5.00 mg/dL (2.5-4.5) H 11/27/18 04:39 Magnesium 2.10 mg/dL (1.7-2.3) 11/27/18 04:39 Medications & Allergies - Medications Allergies/Adverse Reactions: Allergies acetaminophen [From Vicodin] Adverse Reaction (Verified 05/01/15 11:19) Vomiting hydrocodone bitartrate [From Vicodin] Adverse Reaction (Verified 05/01/15 11:19) Vomiting Home Medications: Home Medications Medication Instructions Recorded Confirmed Last Taken Type raNITIdine HCl [Zantac 300 MG TAB] 300 mg PO QPM #14 tablet 12/31/15 11/25/18 Unknown Rx traMADol [Ultram] 50 mg PO Q6HR PRN #20 tablet 12/31/15 11/25/18 Unknown Rx Active Medications: Generic Name Dose Route Start Last Admin Trade Name Freq PRN Reason Stop Dose Admin Acetaminophen 650 mg 11/24/18 14:00 11/29/18 22:27 Tylenol PO 650 mg Q4H PRN Administration Pain MILD(1-3)/Fever >100.5/LAMBERT Albuterol 2.5 mg 11/24/18 14:00 Proventil IH Q4HRT PRN Shortness Of Breath Calcitonin [place] 400 unit 11/30/18 08:20 11/30/18 22:13 Miacalcin IM 400 unit Q12HR MAIRA Administration Famotidine 10 mg 11/25/18 10:00 11/30/18 22:09 Pepcid PO 10 mg BID MAIRA Administration Heparin Sodium (Porcine) 5,000 unit 11/30/18 22:00 11/30/18 22:10 Heparin SUB-Q 5,000 unit Q12HR MAIRA Administration Sodium Chloride 100 mls @ 999 mls/hr 11/30/18 10:33 Nacl 0.9% IV LOREN PRN Hypotension Midodrine 10 mg 11/26/18 16:00 11/30/18 18:01 Proamatine PO 10 mg TID@0800,1200,1600 MAIRA Administration Nitroglycerin 0.4 mg 11/25/18 01:02 Nitrostat SL .Q5MIN PRN Chest Pain Nitroglycerin 0.5 inch 11/25/18 06:00 12/01/18 06:05 Nitro-Bid 2% TP 0.5 inch TIDNTG MAIRA Administration Protocol Ondansetron HCl 4 mg 11/24/18 14:00 11/30/18 18:01 Zofran IV 4 mg Q8H PRN Administration Nausea And Vomiting Sodium Chloride 10 ml 11/24/18 22:00 11/30/18 22:14 Sodium Chloride Flush Syringe 10 Ml IV 10 ml BID MAIRA Administration Sodium Chloride 10 ml 11/24/18 14:00 Sodium Chloride Flush Syringe 10 Ml IV PRN PRN LINE FLUSH Tramadol HCl 50 mg 11/24/18 14:01 11/30/18 22:21 Ultram PO 50 mg Q6HR PRN Administration PAIN
[2018-12-01] MEDS: PEPCID PO SCH ×2 (10:07→21:20)
[2018-12-01] MEDS: HEPARIN SUB-Q SCH ×2 (10:07→21:29)
[2018-12-01] MEDS: PROAMATINE PO SCH ×3 (10:07→17:53)
[2018-12-01] MEDS: MIACALCIN IM SCH ×2 (10:07→22:18)
[2018-12-01] MEDS: SODIUM CHLORIDE FLUSH SYRINGE 10 ML IV SCH ×2 (10:08→22:19)
[2018-12-01] MEDS: ULTRAM PO PRN ×2 (10:10→21:20)
--- NOTE | 2018-12-01 11:09 | Progress Note ---
Assessment and Plan Assessment and plan: 68 YO Female with Nicotine Dependence, HTN, OA, HCV, Bipolar, Anxiety, Severe Malnutrition, ESRD on HD(T,R,Sa), Noncompliance with Dialysis presents to ED for evaluation. Patient was confused and unable to provide detailed history , so initial history taken from ED staff and patient son who is at bedside during exam and interview. 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 In ED and found to have ESRD, Acidosis, Encephalopathy, and Hyperkalemia secondary to missed dialysis sessions. Nephrology consulted in ED for urgent dialysis. ESRD (end stage renal disease) Nephrology consulted in ED, Electrolytes improved following Dialysis Elevated Troponin due to NSTEMI Type 2 Stress test was negative, cardiology following Acute Respiratory failure secondary Fluid overload Secondary to missed dialysis, supportive care, urgent dialysis. Wean oxygen, Acute metabolic Encephalopathy CT head is negative for acute disease Confusion improving Metabolic acidosis Plan to address problem: Corrected on IV bicarbonate therapy, Malnutrition Protein-calorie malnutrition severity: severe Increased protein intake, dietary supplementation. Osteoarthritis pain control, supportive care. Hyperkalemia Now resolved Insulin, Dextrose 50% dialysis 11/28/18 discussed with Nephrology Hypotension on MIDODRINE Chronic Hep C Outpatient GI F/U care, Hypercalcemia Cont calcitonin Calcium 12.8 today Pamidronate given yesterday and ordered for today I discussed with History Faculty Member. I discussed with Dr. Pastor and he recommends to only dc home if calcium < 12.0 g/dl Dose of calcitonin increased DVT prophylaxis SCD to BLE while in bed, supportive care. Code status: Pt is full code Patient still not stable to discharge because of Hypercalcemia. History Interval history: Less confusion Calcium still elevated Non compliant Hospitalist Physical - Physical exam Narrative exam: Gen: Not in acute distress, sitting up in chair, malnourished HEENT: Normocephalic, atraumatic Neck: supple, no JVD Heart: S1 and S2 reg, no murmurs, rubs or gallop Lungs: Clear to auscultation, no rhonchi, no wheeze Abd: soft, non tender, non distended, normal BS, Ext: No edema, no clubbing, no cyanosis Neuro: Awake, alert, mild confused, no focal neurological signs - Constitutional Vitals: Temp Pulse Resp BP Pulse Ox 98.3 F 84 18 136/72 98 12/01/18 07:26 12/01/18 07:26 12/01/18 07:26 12/01/18 07:26 12/01/18 07:26 General appearance: Present: no acute distress Results - Labs CBC & Chem 7: 11/27/18 04:39 12/01/18 05:07 Labs: Laboratory Last Values WBC 7.1 K/mm3 (4.5-11.0) 11/27/18 04:39 RBC 3.07 M/mm3 (3.65-5.03) L 11/27/18 04:39 Hgb 11.4 gm/dl (10.1-14.3) 11/27/18 04:39 Hct 34.4 % (30.3-42.9) 11/27/18 04:39 MCV 112 fl (79-97) H 11/27/18 04:39 MCH 37 pg (28-32) H 11/27/18 04:39 MCHC 33 % (30-34) 11/27/18 04:39 RDW 16.5 % (13.2-15.2) H 11/27/18 04:39 Plt Count 232 K/mm3 (140-440) 11/27/18 04:39 Lymph % (Auto) 12.5 % (13.4-35.0) L 11/27/18 04:39 Holt % (Auto) 10.8 % (0.0-7.3) H 11/27/18 04:39 Eos % (Auto) 3.0 % (0.0-4.3) 11/27/18 04:39 Baso % (Auto) 0.8 % (0.0-1.8) 11/27/18 04:39 Lymph # 0.9 K/mm3 (1.2-5.4) L 11/27/18 04:39 Holt # 0.8 K/mm3 (0.0-0.8) 11/27/18 04:39 Eos # 0.2 K/mm3 (0.0-0.4) 11/27/18 04:39 Baso # 0.1 K/mm3 (0.0-0.1) 11/27/18 04:39 Seg Neutrophils % 72.9 % (40.0-70.0) H 11/27/18 04:39 Seg Neutrophils # 5.2 K/mm3 (1.8-7.7) 11/27/18 04:39 PT 14.5 Sec. (12.2-14.9) 11/25/18 01:18 INR 1.16 (0.87-1.13) H 11/25/18 01:18 APTT 35.4 Sec. (24.2-36.6) 11/25/18 01:18 Heparin Anti-Xa Level < 0.10 U.I./ml (0.3-0.7) L 11/25/18 08:28 Sodium 139 mmol/L (137-145) 12/01/18 05:07 Potassium 4.1 mmol/L (3.6-5.0) 12/01/18 05:07 Chloride 94.1 mmol/L (98-107) L 12/01/18 05:07 Carbon Dioxide 22 mmol/L (22-30) 12/01/18 05:07 Anion Gap 27 mmol/L 12/01/18 05:07 BUN 43 mg/dL (7-17) H 12/01/18 05:07 Creatinine 5.4 mg/dL (0.7-1.2) H D 12/01/18 05:07 Estimated GFR 10 ml/min 12/01/18 05:07 BUN/Creatinine Ratio 8 % 12/01/18 05:07 Glucose 81 mg/dL (65-100) 12/01/18 05:07 POC Glucose 80 (70-105) 11/28/18 09:09 Calcium 12.8 mg/dL (8.4-10.2) H* 12/01/18 05:07 Phosphorus 5.00 mg/dL (2.5-4.5) H 11/27/18 04:39 Magnesium 2.10 mg/dL (1.7-2.3) 11/27/18 04:39 Total Bilirubin 0.40 mg/dL (0.1-1.2) 11/27/18 04:39 AST 38 units/L (5-40) 11/27/18 04:39 ALT 11 units/L (7-56) 11/27/18 04:39 Alkaline Phosphatase 96 units/L (35-129) 11/27/18 04:39 Ammonia 53.0 umol/L (25-60) 11/24/18 12:07 Troponin T 0.178 ng/mL (0.00-0.029) H* D 11/24/18 20:20 Total Protein 9.1 g/dL (6.3-8.2) H 11/27/18 04:39 Albumin 3.9 g/dL (3.9-5) 11/27/18 04:39 Albumin/Globulin Ratio 0.8 % 11/27/18 04:39 Triglycerides 54 mg/dL (2-149) 11/24/18 10:59 Cholesterol 126 mg/dL (50-199) 11/24/18 10:59 LDL Cholesterol Direct 52 mg/dL (50-130) 11/24/18 10:59 HDL Cholesterol 64 mg/dL (40-59) H 11/24/18 10:59 Cholesterol/HDL Ratio 1.96 % 11/24/18 10:59 TSH 0.533 mlU/mL (0.270-4.200) 11/24/18 12:07 Free T4 1.45 ng/dL (0.76-1.46) 11/24/18 12:07 PTH Intact 26.79 pg/mL (15-65) 11/26/18 12:45 Hepatitis A IgM Ab Non-reactive (NonReactive) 11/24/18 12:07 Hep Bs Antigen Non-reactive (Negative) 11/24/18 12:07 Hep B Core IgM Ab Non-reactive (NonReactive) 11/24/18 12:07 Hepatitis C Antibody Reactive (NonReactive) A 11/24/18 12:07 Active Medications - Current Medications Current Medications: Generic Name Dose Route Start Last Admin Trade Name Freq PRN Reason Stop Dose Admin Acetaminophen 650 mg 11/24/18 14:00 11/29/18 22:27 Tylenol PO 650 mg Q4H PRN Administration Pain MILD(1-3)/Fever >100.5/LAMBERT Albuterol 2.5 mg 11/24/18 14:00 Proventil IH Q4HRT PRN Shortness Of Breath Calcitonin [place] 400 unit 11/30/18 08:20 12/01/18 10:07 Miacalcin IM 400 unit Q12HR MAIRA Administration Famotidine 10 mg 11/25/18 10:00 12/01/18 10:07 Pepcid PO 10 mg BID MAIRA Administration Heparin Sodium (Porcine) 5,000 unit 11/30/18 22:00 12/01/18 10:07 Heparin SUB-Q 5,000 unit Q12HR MAIRA Administration Sodium Chloride 100 mls @ 999 mls/hr 11/30/18 10:33 Nacl 0.9% IV LOREN PRN Hypotension Pamidronate Disodium 30 mg/ 503.3333 mls @ 83.889 mls/hr 12/01/18 09:24 Sodium Chloride IV 12/01/18 15:23 ONCE ONE Midodrine 10 mg 11/26/18 16:00 12/01/18 10:07 Proamatine PO 10 mg TID@0800,1200,1600 MAIRA Administration Nitroglycerin 0.4 mg 11/25/18 01:02 Nitrostat SL .Q5MIN PRN Chest Pain Nitroglycerin 0.5 inch 11/25/18 06:00 12/01/18 06:05 Nitro-Bid 2% TP 0.5 inch TIDNTG MAIRA Administration Protocol Ondansetron HCl 4 mg 11/24/18 14:00 11/30/18 18:01 Zofran IV 4 mg Q8H PRN Administration Nausea And Vomiting Sodium Chloride 10 ml 11/24/18 22:00 12/01/18 10:08 Sodium Chloride Flush Syringe 10 Ml IV 10 ml BID MAIRA Administration Sodium Chloride 10 ml 11/24/18 14:00 Sodium Chloride Flush Syringe 10 Ml IV PRN PRN LINE FLUSH Tramadol HCl 50 mg 11/24/18 14:01 12/01/18 10:10 Ultram PO 50 mg Q6HR PRN Administration PAIN Nutrition/Malnutrition Assess - Dietary Evaluation Nutrition/Malnutrition Findings: Nutrition Notes Start: 11/25/18 13:34 Freq: Status: Active Protocol: Document 11/28/18 13:25 RS (Rec: 11/28/18 13:44 RS [id number]) Co-Sign 11/28/18 13:25 LM Nutrition Notes Initial or Follow up Reassessment Current Diagnosis CKD (stage V CKD),Hypertension Other Pertinent Diagnosis bipolar, severe nutrition, non compliance w/ICHD tx, hep C, hyperkalemia Current Diet Renal Labs/Tests K+: 6.7 Pertinent Medications reviewed Height 5 ft 4 in Weight 44.951 kg Dana Body Weight (kg) 54.54 BMI 16.9 Weight change and time frame wt change of 3.6kg d/t HD Weight Status Underweight Subjective/Other Information F/U for PO intake. Pt was disoriented and asked for MD when asked questions regarding nutrition. Observed pt ate 0% of breakfast tray. According to nurse, no ONS was delivered to pt. Percent of energy/protein needs met: 0%/0% Burn Absent Trauma Absent Current % PO Negligible #1 Nutrition Diagnosis Inadequate oral intake As Evidenced by Signs and Symptoms pt eating 0% of breakfast Diagnosis Progress(for reassessment Continues documentation) Is patient on ventilator? No Is Patient Ambulatory and/or Out of Bed No REE-([facility]-confined to bed) 1157.496 Kcal/Kg value to use for calculation 35 Approximate Energy Requirements Using 1573 kcal/Kg Calculation Used for Recommendations Kcal/kg Additional Notes PRO needs >1.2 g/kg/day Fluid needs: 1-1.5L/day Nutrition Intervention Change Diet Order: Continue renal diet + ONS Add Supplement/Snack (indicate name/kcal nepro butter pecan BID /protein ) Provides kCal: 850 Provides Protein (gm) 40 Goal #1 Meet 75% of kcal/PRO needs via PO/ONS intake Goal #2 weight gain/maintence Anticipated Discharge Needs: renal diet Follow-Up By: 12/02/18 Additional Comments F/U for PO intake and ONS tolerance
[2018-12-02 01:56] LABS: Abnormal Protein Band 1 1.1 g/dL; Albumin 3.8 g/dL (3.8-4.8); Gamma Globulin 2.5 g/dL (0.8-1.7)
[2018-12-02] MEDS: NITRO-BID 2% TP SCH ×3 (05:56→18:00)
--- NOTE | 2018-12-02 08:01 | Event Note ---
Date: 12/02/18 [id number]
[2018-12-02] MEDS: PROAMATINE PO SCH ×3 (08:55→16:10)
[2018-12-02] MEDS: PEPCID PO SCH ×2 (09:11→23:18)
[2018-12-02] MEDS: SODIUM CHLORIDE FLUSH SYRINGE 10 ML IV SCH ×2 (09:12→23:21)
[2018-12-02] MEDS: HEPARIN SUB-Q SCH ×2 (09:12→23:17)
[2018-12-02] MEDS: ZOFRAN IV PRN (09:30)
[2018-12-02] MEDS: ULTRAM PO PRN (09:54)
[2018-12-02 09:55] LABS: Hematocrit 31.2 % (30.3-42.9); Hemoglobin 10.5 gm/dl (10.1-14.3); Mean Corpuscular HGB Conc 34 % (30-34); Mean Corpuscular Volume 110 fl (79-97); Platelet Count 216 K/mm3 (140-440); Red Blood Count 2.84 M/mm3 (3.65-5.03); Red Cell Distribution Width 16.1 % (13.2-15.2)
[2018-12-02 10:11] LABS: BUN/Creatinine Ratio 8; Blood Urea Nitrogen 60 mg/dL (7-17); Hemolysis Index 3
[2018-12-02] MEDS ORDERED: D50W (25GM) Syringe IV ONE (10:31)
[2018-12-02 10:44] LABS: Calcium > 13.0 mg/dL (8.4-10.2)
--- NOTE | 2018-12-02 10:59 | Progress Note ---
Subjective Principal diagnosis: ESRD on HD, acute respiratory failure, metabolic encephalopathy Interval history: Patient was seen today for follow-up of multiple renal related issues No complaints of any chest pain pressure or shortness of breath Interdisciplinary notes that also reviewed Events of 24 hours vitals labs intake output medications were reviewed Past medical history: Reviewed Family history: Reviewed Social history: Reviewed Allergies: Reviewed Physical examination: Vitals: Reviewed HEENT: No pallor or icterus oral mucosa moist Neck: Supple no JVD no thyromegaly Chest: Bilateral clear to auscultation anteriorly Heart: Regular rate and rhythm S1-S2 heard no S3-S4 Abdomen: Soft nontender no voluntary guarding rigidity rebound Extremity: Dry skin less than 1+ peripheral edema Psychiatric: No evidence of agitation and aggression noted Dermatology: No petechial rashes Labs and x-rays: Reviewed from today Assessment and plan End-stage renal disease: Patient is currently on hemodialysis on Sunday schedule, monitor dialysis related labs periodically her calcium as well as PTH was normal in October 2018 discussed with IMS service she may require further workup for hypercalcemia by oncology Elevated Calcium: Status post hematology evaluation Immunofixation, PTH phosphorus Rashid level Anemia and end-stage renal disease: Monitor hemoglobin and hematocrit erythropoietin as needed. Secondary hyperparathyroidism: Check phosphorus and PTH level periodically Dialysis access: Currently working well Please consider dietitian consultation due to dialysis status, patient does need high-protein diet Fluid restriction: 1200 cc per day not to exceed more than that Multiple comorbidities including hepatitis C hypotension hypercalcemia, noncompliance with dialysis Prognosis guarded to poor, due to dialysis status We'll continue to follow and make recommendation for renal standpoint Objective - Vital Signs Vital signs: Vital Signs - 12hr 12/01/18 12/02/18 12/02/18 23:41 02:14 08:10 Temperature 98.2 F 97.4 F L Pulse Rate 90 89 90 Respiratory 16 18 Rate Blood Pressure 140/74 140/79 O2 Sat by Pulse 96 98 Oximetry - Lab 12/02/18 09:20 12/02/18 09:20 Most recent lab results Calcium > 13.0 mg/dL (8.4-10.2) H* 12/02/18 09:20 Phosphorus 5.00 mg/dL (2.5-4.5) H 11/27/18 04:39 Magnesium 2.10 mg/dL (1.7-2.3) 11/27/18 04:39 Medications & Allergies - Medications Allergies/Adverse Reactions: Allergies acetaminophen [From Vicodin] Adverse Reaction (Verified 05/01/15 11:19) Vomiting hydrocodone bitartrate [From Vicodin] Adverse Reaction (Verified 05/01/15 11:19) Vomiting Home Medications: Home Medications Medication Instructions Recorded Confirmed Last Taken Type raNITIdine HCl [Zantac 300 MG TAB] 300 mg PO QPM #14 tablet 12/31/15 11/25/18 Unknown Rx traMADol [Ultram] 50 mg PO Q6HR PRN #20 tablet 12/31/15 11/25/18 Unknown Rx Active Medications: Generic Name Dose Route Start Last Admin Trade Name Freq PRN Reason Stop Dose Admin Acetaminophen 650 mg 11/24/18 14:00 11/29/18 22:27 Tylenol PO 650 mg Q4H PRN Administration Pain MILD(1-3)/Fever >100.5/LAMBERT Albuterol 2.5 mg 11/24/18 14:00 Proventil IH Q4HRT PRN Shortness Of Breath Calcitonin [place] 400 unit 11/30/18 08:20 12/01/18 22:18 Miacalcin IM 400 unit Q12HR MAIRA Administration Famotidine 10 mg 11/25/18 10:00 12/02/18 09:11 Pepcid PO 10 mg BID MAIRA Administration Heparin Sodium (Porcine) 5,000 unit 11/30/18 22:00 12/02/18 09:12 Heparin SUB-Q 5,000 unit Q12HR MAIRA Administration Sodium Chloride 100 mls @ 999 mls/hr 11/30/18 10:33 Nacl 0.9% IV LOREN PRN Hypotension Midodrine 10 mg 11/26/18 16:00 12/02/18 08:55 Proamatine PO 10 mg TID@0800,1200,1600 MAIRA Administration Nitroglycerin 0.4 mg 11/25/18 01:02 Nitrostat SL .Q5MIN PRN Chest Pain Nitroglycerin 0.5 inch 11/25/18 06:00 12/02/18 05:56 Nitro-Bid 2% TP Not Given TIDNTG [facility] Protocol Ondansetron HCl 4 mg 11/24/18 14:00 12/02/18 09:30 Zofran IV 4 mg Q8H PRN Administration Nausea And Vomiting Sodium Chloride 10 ml 11/24/18 22:00 12/02/18 09:12 Sodium Chloride Flush Syringe 10 Ml IV 10 ml BID MAIRA Administration Sodium Chloride 10 ml 11/24/18 14:00 Sodium Chloride Flush Syringe 10 Ml IV PRN PRN LINE FLUSH Tramadol HCl 50 mg 11/24/18 14:01 12/02/18 09:54 Ultram PO 50 mg Q6HR PRN Administration PAIN
--- NOTE | 2018-12-02 11:23 | Progress Note ---
Assessment and Plan Assessment and plan: 68 YO Female with Nicotine Dependence, HTN, OA, HCV, Bipolar, Anxiety, Severe Malnutrition, ESRD on HD(T,R,Sa), Noncompliance with Dialysis presents to ED for evaluation. Patient was confused and unable to provide detailed history , so initial history taken from ED staff and patient son who is at bedside during exam and interview. 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 In ED and found to have ESRD, Acidosis, Encephalopathy, and Hyperkalemia secondary to missed dialysis sessions. Nephrology consulted in ED for urgent dialysis. She was admitted and received scheduled dialysis. She haowever has se dinah hypercalcemia which has been persistent even on Calcitonin and Pamidronate. Oncology was therefore consulted. He ordered bone scamn today that revealed multiple lytic lesions ESRD (end stage renal disease) Nephrology following. Elevated Troponin due to NSTEMI Type 2 Stress test was negative, cardiology following Acute Respiratory failure secondary Fluid overload Secondary to missed dialysis, supportive care, urgent dialysis. Wean oxygen, Acute metabolic Encephalopathy CT head is negative for acute disease Confusion on and off Metabolic acidosis Plan to address problem: Corrected on IV bicarbonate therapy, Malnutrition Protein-calorie malnutrition severity: severe Increased protein intake, dietary supplementation. Osteoarthritis pain control, supportive care. Hyperkalemia Now resolved Insulin, Dextrose 50% discussed with Nephrology Hypotension on [place] Chronic Hep C Outpatient GI F/U care, Hypercalcemia has been persistent Cont calcitonin Pamidronate doses given I discussed with Vision Rehabilitation Therapist. I discussed with Dr. Pastor and he recommends to only dc home if calcium < 12.0 g/dl Dose of calcitonin increased Consulted Dr. Gaspar, and he ordered Bone scan, done today revealed multiple lytic lesions. DVT prophylaxis SCD to BLE while in bed, supportive care. Code status: Pt is full code Patient still not stable to discharge because of Hypercalcemia. History Interval history: Less confusion Calcium still elevated Non compliant Hospitalist Physical - Physical exam Narrative exam: Gen: Not in acute distress, sitting up in chair, malnourished HEENT: Normocephalic, atraumatic Neck: supple, no JVD Heart: S1 and S2 reg, no murmurs, rubs or gallop Lungs: Clear to auscultation, no rhonchi, no wheeze Abd: soft, non tender, non distended, normal BS, Ext: No edema, no clubbing, no cyanosis Neuro: Awake, alert, mild confused, no focal neurological signs - Constitutional Vitals: Temp Pulse Resp BP Pulse Ox 97.4 F L 90 18 140/79 98 12/02/18 08:10 12/02/18 08:10 12/02/18 08:10 12/02/18 08:10 12/02/18 08:10 General appearance: Present: no acute distress Results - Labs CBC & Chem 7: 12/02/18 09:20 12/02/18 09:20 Labs: Laboratory Last Values WBC 9.3 K/mm3 (4.5-11.0) 12/02/18 09:20 RBC 2.84 M/mm3 (3.65-5.03) L 12/02/18 09:20 Hgb 10.5 gm/dl (10.1-14.3) 12/02/18 09:20 Hct 31.2 % (30.3-42.9) 12/02/18 09:20 MCV 110 fl (79-97) H 12/02/18 09:20 MCH 37 pg (28-32) H 12/02/18 09:20 MCHC 34 % (30-34) 12/02/18 09:20 RDW 16.1 % (13.2-15.2) H 12/02/18 09:20 Plt Count 216 K/mm3 (140-440) 12/02/18 09:20 Lymph % (Auto) 12.5 % (13.4-35.0) L 11/27/18 04:39 [place] % (Auto) 10.8 % (0.0-7.3) H 11/27/18 04:39 Eos % (Auto) 3.0 % (0.0-4.3) 11/27/18 04:39 Baso % (Auto) 0.8 % (0.0-1.8) 11/27/18 04:39 Lymph # 0.9 K/mm3 (1.2-5.4) L 11/27/18 04:39 [place] # 0.8 K/mm3 (0.0-0.8) 11/27/18 04:39 Eos # 0.2 K/mm3 (0.0-0.4) 11/27/18 04:39 Baso # 0.1 K/mm3 (0.0-0.1) 11/27/18 04:39 Seg Neutrophils % 72.9 % (40.0-70.0) H 11/27/18 04:39 Seg Neutrophils # 5.2 K/mm3 (1.8-7.7) 11/27/18 04:39 PT 14.5 Sec. (12.2-14.9) 11/25/18 01:18 INR 1.16 (0.87-1.13) H 11/25/18 01:18 APTT 35.4 Sec. (24.2-36.6) 11/25/18 01:18 Heparin Anti-Xa Level < 0.10 U.I./ml (0.3-0.7) L 11/25/18 08:28 Sodium 139 mmol/L (137-145) 12/02/18 09:20 Potassium 4.6 mmol/L (3.6-5.0) 12/02/18 09:20 Chloride 94.3 mmol/L (98-107) L 12/02/18 09:20 Carbon Dioxide 21 mmol/L (22-30) L 12/02/18 09:20 Anion Gap 28 mmol/L 12/02/18 09:20 BUN 60 mg/dL (7-17) H 12/02/18 09:20 Creatinine 7.6 mg/dL (0.7-1.2) H 12/02/18 09:20 Estimated GFR 6 ml/min 12/02/18 09:20 BUN/Creatinine Ratio 8 % 12/02/18 09:20 Glucose 83 mg/dL (65-100) 12/02/18 09:20 POC Glucose 80 (70-105) 11/28/18 09:09 Calcium > 13.0 mg/dL (8.4-10.2) H* 12/02/18 09:20 Phosphorus 5.00 mg/dL (2.5-4.5) H 11/27/18 04:39 Magnesium 2.10 mg/dL (1.7-2.3) 11/27/18 04:39 Total Bilirubin 0.40 mg/dL (0.1-1.2) 11/27/18 04:39 AST 38 units/L (5-40) 11/27/18 04:39 ALT 11 units/L (7-56) 11/27/18 04:39 Alkaline Phosphatase 96 units/L (35-129) 11/27/18 04:39 Ammonia 53.0 umol/L (25-60) 11/24/18 12:07 Troponin T 0.178 ng/mL (0.00-0.029) H* D 11/24/18 20:20 Serum Total Protein 9.1 g/dL (6.1-8.1) H 11/26/18 12:45 Total Protein 9.1 g/dL (6.3-8.2) H 11/27/18 04:39 Albumin 3.9 g/dL (3.9-5) 11/27/18 04:39 Albumin/Globulin Ratio 0.8 % 11/27/18 04:39 Qogsf-4-Kxtuhhbkj 0.6 g/dL (0.2-0.3) H 11/26/18 12:45 Stinc-3-Crybnvuiu 1.3 g/dL (0.5-0.9) H 11/26/18 12:45 Beta Globulins 0.5 g/dL (0.2-0.5) 11/26/18 12:45 Gamma Globulins 2.5 g/dL (0.8-1.7) H 11/26/18 12:45 Abnorm Protein Band 1 1.1 g/dL H 11/26/18 12:45 Abnorm Protein Band 2 1.0 g/dL H 11/26/18 12:45 PEP Interpretation see below H 11/26/18 12:45 Triglycerides 54 mg/dL (2-149) 11/24/18 10:59 Cholesterol 126 mg/dL (50-199) 11/24/18 10:59 LDL Cholesterol Direct 52 mg/dL (50-130) 11/24/18 10:59 HDL Cholesterol 64 mg/dL (40-59) H 11/24/18 10:59 Cholesterol/HDL Ratio 1.96 % 11/24/18 10:59 Vitamin B12 728.0 pg/mL (211-911) 12/02/18 06:58 Folate > 20.0 ng/mL (7.3-26.0) 12/02/18 09:20 TSH 0.533 mlU/mL (0.270-4.200) 11/24/18 12:07 Free T4 1.45 ng/dL (0.76-1.46) 11/24/18 12:07 PTH Intact 26.79 pg/mL (15-65) 11/26/18 12:45 Hepatitis A IgM Ab Non-reactive (NonReactive) 11/24/18 12:07 Hep Bs Antigen Non-reactive (Negative) 11/24/18 12:07 Hep B Core IgM Ab Non-reactive (NonReactive) 11/24/18 12:07 Hepatitis C Antibody Reactive (NonReactive) A 11/24/18 12:07 Active Medications - Current Medications Current Medications: Generic Name Dose Route Start Last Admin Trade Name Freq PRN Reason Stop Dose Admin Acetaminophen 650 mg 11/24/18 14:00 11/29/18 22:27 Tylenol PO 650 mg Q4H PRN Administration Pain MILD(1-3)/Fever >100.5/LAMBERT Albuterol 2.5 mg 11/24/18 14:00 Proventil IH Q4HRT PRN Shortness Of Breath Calcitonin [place] 400 unit 11/30/18 08:20 12/01/18 22:18 Miacalcin IM 400 unit Q12HR MAIRA Administration Famotidine 10 mg 11/25/18 10:00 12/02/18 09:11 Pepcid PO 10 mg BID MAIRA Administration Heparin Sodium (Porcine) 5,000 unit 11/30/18 22:00 12/02/18 09:12 Heparin SUB-Q 5,000 unit Q12HR MAIRA Administration Sodium Chloride 100 mls @ 999 mls/hr 11/30/18 10:33 Nacl 0.9% IV LOREN PRN Hypotension Midodrine 10 mg 11/26/18 16:00 12/02/18 08:55 Proamatine PO 10 mg TID@0800,1200,1600 MAIRA Administration Nitroglycerin 0.4 mg 11/25/18 01:02 Nitrostat SL .Q5MIN PRN Chest Pain Nitroglycerin 0.5 inch 11/25/18 06:00 12/02/18 05:56 Nitro-Bid 2% TP Not Given TIDNTG [facility] Protocol Ondansetron HCl 4 mg 11/24/18 14:00 12/02/18 09:30 Zofran IV 4 mg Q8H PRN Administration Nausea And Vomiting Sodium Chloride 10 ml 11/24/18 22:00 12/02/18 09:12 Sodium Chloride Flush Syringe 10 Ml IV 10 ml BID MAIRA Administration Sodium Chloride 10 ml 11/24/18 14:00 Sodium Chloride Flush Syringe 10 Ml IV PRN PRN LINE FLUSH Tramadol HCl 50 mg 11/24/18 14:01 12/02/18 09:54 Ultram PO 50 mg Q6HR PRN Administration PAIN Nutrition/Malnutrition Assess - Dietary Evaluation Nutrition/Malnutrition Findings: Nutrition Notes Start: 11/25/18 13:34 Freq: Status: Active Protocol: Document 11/28/18 13:25 RS (Rec: 11/28/18 13:44 RS [id number]) Co-Sign 11/28/18 13:25 LM Nutrition Notes Initial or Follow up Reassessment Current Diagnosis CKD (stage V CKD),Hypertension Other Pertinent Diagnosis bipolar, severe nutrition, non compliance w/ICHD tx, hep C, hyperkalemia Current Diet Renal Labs/Tests K+: 6.7 Pertinent Medications reviewed Height 5 ft 4 in Weight 44.951 kg [place] Body Weight (kg) 54.54 BMI 16.9 Weight change and time frame wt change of 3.6kg d/t HD Weight Status Underweight Subjective/Other Information F/U for PO intake. Pt was disoriented and asked for MD when asked questions regarding nutrition. Observed pt ate 0% of breakfast tray. According to nurse, no ONS was delivered to pt. Percent of energy/protein needs met: 0%/0% Burn Absent Trauma Absent Current % PO Negligible #1 Nutrition Diagnosis Inadequate oral intake As Evidenced by Signs and Symptoms pt eating 0% of breakfast Diagnosis Progress(for reassessment Continues documentation) Is patient on ventilator? No Is Patient Ambulatory and/or Out of Bed No REE-([facility]-confined to bed) 1157.496 Kcal/Kg value to use for calculation 35 Approximate Energy Requirements Using 1573 kcal/Kg Calculation Used for Recommendations Kcal/kg Additional Notes PRO needs >1.2 g/kg/day Fluid needs: 1-1.5L/day Nutrition Intervention Change Diet Order: Continue renal diet + ONS Add Supplement/Snack (indicate name/kcal nepro butter pecan BID /protein ) Provides kCal: 850 Provides Protein (gm) 40 Goal #1 Meet 75% of kcal/PRO needs via PO/ONS intake Goal #2 weight gain/maintence Anticipated Discharge Needs: renal diet Follow-Up By: 12/02/18 Additional Comments F/U for PO intake and ONS tolerance
[2018-12-02] MEDS: MIACALCIN IM SCH ×2 (12:21→23:17)
--- NOTE | 2018-12-02 12:41 | XRay Report ---
METASTATIC BONE SURVEY History evaluate for myeloma COMPARISON: None. FINDINGS: Osteopenia is evident. Numerous subtle lytic lesions are identified throughout the calvariu m, spine, ribs and pelvis which is highly suspicious for multiple myeloma or other metastatic process . There appear to be multiple bilateral rib deformities which appear chronic. Chronic left humeral ne ck fracture is also identified. No definite acute fracture. Signer Name: Que Manzano Jr, MD Signed: 12/02/2018 12:37 PM Workstation Name: [id number]
--- NOTE | 2018-12-02 20:32 | Consultation ---
REFERRED BY: MD Rox REASON FOR CONSULTATION: Hypercalcemia. HISTORY OF PRESENT ILLNESS: I saw the patient, a 68-year-old female in the medical floor. The patient has end-stage renal disease, on dialysis, has a history of hypertension, arthritis, hepatitis C, bipolar, anxiety, severe malnutrition, noncompliance with dialysis, came to the hospital because of confusion. Also had shortness of breath prior to admission, was treated for encephalopathy, hyperkalemia. Nephrology team saw the patient. During this admission, the patient has been seen by Nephrology team. The patient's calcium was found to be high and I have been asked to evaluate the patient. The patient has received calcitonin and bisphosphonates. However, the calcium is not coming down. Total protein has raised. M spike is 1.1. PTH is not elevated. At this time, the patient says she is not able to sleep well. No bleeding issues. The patient is emaciated. She has a dialysis catheter in the left chest. No hematemesis, no hematochezia, no fever, no obvious bleeding. PAST MEDICAL HISTORY: ESRD, hepatitis, hypertension, bipolar disorder. PAST SURGICAL HISTORY: Hysterectomy, hip surgery. SOCIAL HISTORY: , history of smoking present. FAMILY HISTORY: Hypertension. ALLERGIES: VICODIN. HOME MEDICATIONS: Include tramadol. PHYSICAL EXAMINATION: VITAL SIGNS: Temperature 98, pulse 89, respirations 16, BP 140/74. HEENT: No pallor, no icterus. NECK: No neck lymph nodes. HEART: S1, S2. Left chest dialysis catheter present. ABDOMEN: Soft. EXTREMITIES: No calf tenderness. NEUROLOGIC: Alert, awake. LABORATORY DATA: Potassium 4.1, creatinine 5.4, calcium 12.8, white cell 7, hemoglobin 11.4, MCV 112, platelet 232. B12 level 773 in 2016. Serum iron was 87 in 2016. ASSESSMENT AND PLAN: 1. Hypercalcemia persistent. PTH is not elevated at 26. Total proteins are elevated with gammaglobulin of 2.5. Abnormal protein band of 1.1 and 1. We will look into multiple myeloma as a differential. We will do a skeletal survey. MCV is elevated, we will do deficiency investigations for same. 2. End-stage renal disease, on dialysis. 3. History of hypertension. 4. History of hepatitis C. 5. History of malnutrition. 6. History of nicotine dependence. 7. History of hyperkalemia. 8. History of encephalopathy. 9. I will follow the patient during inpatient stay. She also has been treated for non-ST elevation myocardial infarction. JOB# [id number] JIA/BINA
[2018-12-03] MEDS: NITRO-BID 2% TP SCH (06:07)
--- NOTE | 2018-12-03 07:15 | Hem/Onc Progress Note ---
Assessment and Plan 1. Hypercalcemia persistent. PTH is not elevated at 26. Total proteins are elevated with gammaglobulin of 2.5. Abnormal protein band of 1.1 and 1. multiple myeloma as a differential. skeletal survey. MCV is elevated, deficiency investigations for same. 2. End-stage renal disease, on dialysis. 3. History of hypertension. 4. History of hepatitis C. 5. History of malnutrition. 6. History of nicotine dependence. 7. History of hyperkalemia s/p calcium gluconate 8. History of encephalopathy. 9. I will follow the patient during inpatient stay. She also has been treated for non-ST elevation myocardial infarction. skeletal survey - lytic lesion + d/w dr barcenas and dr fernandez dexa trial for myeloma BMBX ? transfer for initial chemo - as calcium is not responding to pamidronate and calcitonin - Patient Problems (1) Hypercalcemia Current Visit: Yes Status: Acute Subjective Date of service: 12/03/18 Principal diagnosis: hypercalcemia - possible myeloma Interval history: had skeletal survey Objective - Exam Narrative Exam: Pain - present General appearance - stable - thin built Performance status limited self care Eyes - no icterus ENT - no bleeding LNs cervical not palpable Neck - no LN Respiratory Normal Breath sounds - CTA anteriorly CVS S1 S2 + Extremities no calf tenderness General GI Soft Rectal deferred female - deferred Skin warm Musculoskeletal moves limbs Neurologically - alert awake - Constitutional Vitals: Last Vital Signs Temp 98.4 F 12/03/18 02:03 Pulse 107 H 12/03/18 06:07 Resp 18 12/03/18 02:03 BP 92/52 12/03/18 06:07 Pulse Ox 97 12/03/18 02:03 - Labs Lab Results: Laboratory Results - last 24 hr 12/02/18 12/02/18 12/02/18 06:58 09:20 09:20 WBC 9.3 RBC 2.84 L Hgb 10.5 Hct 31.2 MCV 110 H MCH 37 H MCHC 34 RDW 16.1 H Plt Count 216 Sodium 139 Potassium 4.6 Chloride 94.3 L Carbon Dioxide 21 L Anion Gap 28 BUN 60 H Creatinine 7.6 H Estimated GFR 6 BUN/Creatinine Ratio 8 Glucose 83 POC Glucose Calcium > 13.0 H* Vitamin B12 728.0 Folate PTH Intact 12/02/18 12/02/18 12/02/18 09:20 11:41 11:54 WBC RBC Hgb Hct MCV MCH MCHC RDW Plt Count Sodium Potassium Chloride Carbon Dioxide Anion Gap BUN Creatinine Estimated GFR BUN/Creatinine Ratio Glucose POC Glucose 109 H Calcium Vitamin B12 Folate > 20.0 PTH Intact 27.21 12/03/18 12/03/18 12/03/18 01:06 05:39 06:58 WBC RBC Hgb Hct MCV MCH MCHC RDW Plt Count Sodium 137 Potassium 4.1 Chloride 96.5 L Carbon Dioxide 24 Anion Gap 21 BUN 24 H Creatinine 4.1 H Estimated GFR 13 BUN/Creatinine Ratio 6 Glucose 84 POC Glucose 80 103 Calcium Vitamin B12 Folate PTH Intact Medications & Allergies - Medications Allergies/Adverse Reactions: Allergies acetaminophen [From Vicodin] Adverse Reaction (Verified 05/01/15 11:19) Vomiting hydrocodone bitartrate [From Vicodin] Adverse Reaction (Verified 05/01/15 11:19) Vomiting Home Medications: Home Medications Medication Instructions Recorded Confirmed Last Taken Type raNITIdine HCl [Zantac 300 MG TAB] 300 mg PO QPM #14 tablet 12/31/15 11/25/18 Unknown Rx traMADol [Ultram] 50 mg PO Q6HR PRN #20 tablet 12/31/15 11/25/18 Unknown Rx Active Medications: Generic Name Dose Route Start Last Admin Trade Name Freq PRN Reason Stop Dose Admin Acetaminophen 650 mg 11/24/18 14:00 11/29/18 22:27 Tylenol PO 650 mg Q4H PRN Administration Pain MILD(1-3)/Fever >100.5/LAMBERT Albuterol 2.5 mg 11/24/18 14:00 Proventil IH Q4HRT PRN Shortness Of Breath Calcitonin [place] 400 unit 11/30/18 08:20 12/02/18 23:17 Miacalcin IM 400 unit Q12HR MAIRA Administration Famotidine 10 mg 11/25/18 10:00 12/02/18 23:18 Pepcid PO 10 mg BID MAIRA Administration Heparin Sodium (Porcine) 5,000 unit 11/30/18 22:00 12/02/18 23:17 Heparin SUB-Q 5,000 unit Q12HR MAIRA Administration Sodium Chloride 100 mls @ 999 mls/hr 11/30/18 10:33 Nacl 0.9% IV LOREN PRN Hypotension Midodrine 10 mg 11/26/18 16:00 12/02/18 16:10 Proamatine PO 10 mg TID@0800,1200,1600 MAIRA Administration Morphine Sulfate 2 mg 12/02/18 16:56 Morphine IV Q4H PRN Pain, Moderate (4-6) Nitroglycerin 0.4 mg 11/25/18 01:02 Nitrostat SL .Q5MIN PRN Chest Pain Nitroglycerin 0.5 inch 11/25/18 06:00 12/03/18 06:07 Nitro-Bid 2% TP 0.5 inch TIDNTG MAIRA Administration Protocol Ondansetron HCl 4 mg 11/24/18 14:00 12/02/18 09:30 Zofran IV 4 mg Q8H PRN Administration Nausea And Vomiting Sodium Chloride 10 ml 11/24/18 22:00 12/02/18 23:21 Sodium Chloride Flush Syringe 10 Ml IV 10 ml BID MAIRA Administration Sodium Chloride 10 ml 11/24/18 14:00 Sodium Chloride Flush Syringe 10 Ml IV PRN PRN LINE FLUSH
[2018-12-03 07:18] LABS: Calcium 12.9 mg/dL (8.4-10.2)
--- NOTE | 2018-12-03 08:35 | Progress Note ---
Assessment and Plan Assessment and plan: 68 YO Female with Nicotine Dependence, HTN, OA, HCV, Bipolar, Anxiety, Severe Malnutrition, ESRD on HD(T,R,Sa), Noncompliance with Dialysis presents to ED for evaluation. Pt is confused and unable to provide detailed history at time of my exam. Pt history taken from ED staff and patient son who is at bedside during exam and interview. 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 Pt transported to [facility] via private vehicle. * In ED and found to have ESRD, Acidosis, Encephalopathy, and Hyperkalemia, Hypercalcemia initial thought to be secondary to missed dialysis sessions. Nephrology consulted in ED for urgent dialysis. Despite dialysis, patient showed no improvement in hypercalcemia * Pt is confused, and lethargic, but has a positive gag reflex, and in able to protect her airway. No evidence of Infection noted * Patient noted to have elevated Troponin and NSTEMI protocol initiated. Review of previous records shows normal tropnin and no evidence of prior cardiac work up * Patient was given Palmidronate and Calcitonin with no improvement * Hematology consulted for persistent Hypercalcemia, PTH not elevated, but Total proteins elevated with gammaglobulin of 2.5 and abnormal band of 1.1 and 1. Skeletal survey done and showed Lytic lesions, Dexa started as trial for myeloma * Called [facility] and was informed patient had been diagosed with multiple Myeloma for years now. Requesting records Hypercalemia- Per discussion with Hematology, awaiting pathology report, patient may need transfer to chemotherapy as calcium not responding to calcitoni and pamidronate if diagnosis of Myeloma confirmed Continue calcitonin, pamidronate also given ESRD (end stage renal disease) Nephrology following. Elevated Troponin due to NSTEMI Type 2 Stress test was negative, cardiology following Acute Respiratory failure secondary Fluid overload Secondary to missed dialysis, supportive care, urgent dialysis. Wean oxygen, Acute metabolic Encephalopathy CT head is negative for acute disease Confusion on and off Metabolic acidosis Plan to address problem: Corrected on IV bicarbonate therapy, Malnutrition Protein-calorie malnutrition severity: severe Increased protein intake, dietary supplementation. Osteoarthritis pain control, supportive care. Hyperkalemia Now resolved Insulin, Dextrose 50% discussed with Nephrology Hypoglycemia Start on D5 Hypotension on [place]RINE Chronic Hep C Outpatient GI F/U care, Discussed with Dr Gaspar History Interval history: Patient seen and examined today, noted tachycardia today, mild shortness of robe ath Hospitalist Physical - Physical exam Narrative exam: Gen: Not in acute distress, lying in bed malnourished HEENT: Normocephalic, atraumatic Neck: supple, no JVD Heart: S1 and S2 irregular irregular, no murmurs, rubs or gallop Lungs: Clear to auscultation, no rhonchi, no wheeze Abd: soft, non tender, non distended, normal BS, Ext: No edema, no clubbing, no cyanosis Neuro: Awake, alert, mild confused, no focal neurological signs - Constitutional Vitals: Temp Pulse Resp BP Pulse Ox 98.4 F 126 H 18 92/52 97 12/03/18 02:03 12/03/18 07:41 12/03/18 02:03 12/03/18 06:07 12/03/18 02:03 General appearance: Present: no acute distress Results - Labs CBC & Chem 7: 12/04/18 09:51 12/04/18 09:51 Labs: Laboratory Last Values WBC 9.3 K/mm3 (4.5-11.0) 12/02/18 09:20 RBC 2.84 M/mm3 (3.65-5.03) L 12/02/18 09:20 Hgb 10.5 gm/dl (10.1-14.3) 12/02/18 09:20 Hct 31.2 % (30.3-42.9) 12/02/18 09:20 MCV 110 fl (79-97) H 12/02/18 09:20 MCH 37 pg (28-32) H 12/02/18 09:20 MCHC 34 % (30-34) 12/02/18 09:20 RDW 16.1 % (13.2-15.2) H 12/02/18 09:20 Plt Count 216 K/mm3 (140-440) 12/02/18 09:20 Lymph % (Auto) 12.5 % (13.4-35.0) L 11/27/18 04:39 Avery % (Auto) 10.8 % (0.0-7.3) H 11/27/18 04:39 Eos % (Auto) 3.0 % (0.0-4.3) 11/27/18 04:39 Baso % (Auto) 0.8 % (0.0-1.8) 11/27/18 04:39 Lymph # 0.9 K/mm3 (1.2-5.4) L 11/27/18 04:39 Avery # 0.8 K/mm3 (0.0-0.8) 11/27/18 04:39 Eos # 0.2 K/mm3 (0.0-0.4) 11/27/18 04:39 Baso # 0.1 K/mm3 (0.0-0.1) 11/27/18 04:39 Seg Neutrophils % 72.9 % (40.0-70.0) H 11/27/18 04:39 Seg Neutrophils # 5.2 K/mm3 (1.8-7.7) 11/27/18 04:39 PT 14.5 Sec. (12.2-14.9) 11/25/18 01:18 INR 1.16 (0.87-1.13) H 11/25/18 01:18 APTT 35.4 Sec. (24.2-36.6) 11/25/18 01:18 Heparin Anti-Xa Level < 0.10 U.I./ml (0.3-0.7) L 11/25/18 08:28 Sodium 137 mmol/L (137-145) 12/03/18 05:39 Potassium 4.1 mmol/L (3.6-5.0) 12/03/18 05:39 Chloride 96.5 mmol/L (98-107) L 12/03/18 05:39 Carbon Dioxide 24 mmol/L (22-30) 12/03/18 05:39 Anion Gap 21 mmol/L 12/03/18 05:39 BUN 24 mg/dL (7-17) H 12/03/18 05:39 Creatinine 4.1 mg/dL (0.7-1.2) H 12/03/18 05:39 Estimated GFR 13 ml/min 12/03/18 05:39 BUN/Creatinine Ratio 6 % 12/03/18 05:39 Glucose 84 mg/dL (65-100) 12/03/18 05:39 POC Glucose 103 (70-105) 12/03/18 06:58 Calcium 12.9 mg/dL (8.4-10.2) H* 12/03/18 05:39 Phosphorus 5.00 mg/dL (2.5-4.5) H 11/27/18 04:39 Magnesium 2.10 mg/dL (1.7-2.3) 11/27/18 04:39 Total Bilirubin 0.40 mg/dL (0.1-1.2) 11/27/18 04:39 AST 38 units/L (5-40) 11/27/18 04:39 ALT 11 units/L (7-56) 11/27/18 04:39 Alkaline Phosphatase 96 units/L (35-129) 11/27/18 04:39 Ammonia 53.0 umol/L (25-60) 11/24/18 12:07 Troponin T 0.178 ng/mL (0.00-0.029) H* D 11/24/18 20:20 Serum Total Protein 9.1 g/dL (6.1-8.1) H 11/26/18 12:45 Total Protein 9.1 g/dL (6.3-8.2) H 11/27/18 04:39 Albumin 3.9 g/dL (3.9-5) 11/27/18 04:39 Albumin/Globulin Ratio 0.8 % 11/27/18 04:39 Zwiqj-4-Toyojkmpj 0.6 g/dL (0.2-0.3) H 11/26/18 12:45 Kfjgd-8-Wpurjlqpm 1.3 g/dL (0.5-0.9) H 11/26/18 12:45 Beta Globulins 0.5 g/dL (0.2-0.5) 11/26/18 12:45 Gamma Globulins 2.5 g/dL (0.8-1.7) H 11/26/18 12:45 Abnorm Protein Band 1 1.1 g/dL H 11/26/18 12:45 Abnorm Protein Band 2 1.0 g/dL H 11/26/18 12:45 PEP Interpretation see below H 11/26/18 12:45 Triglycerides 54 mg/dL (2-149) 11/24/18 10:59 Cholesterol 126 mg/dL (50-199) 11/24/18 10:59 LDL Cholesterol Direct 52 mg/dL (50-130) 11/24/18 10:59 HDL Cholesterol 64 mg/dL (40-59) H 11/24/18 10:59 Cholesterol/HDL Ratio 1.96 % 11/24/18 10:59 Vitamin B12 728.0 pg/mL (211-911) 12/02/18 06:58 Folate > 20.0 ng/mL (7.3-26.0) 12/02/18 09:20 TSH 0.533 mlU/mL (0.270-4.200) 11/24/18 12:07 Free T4 1.45 ng/dL (0.76-1.46) 11/24/18 12:07 PTH Intact 27.21 pg/mL (15-65) 12/02/18 11:41 Hepatitis A IgM Ab Non-reactive (NonReactive) 11/24/18 12:07 Hep Bs Antigen Non-reactive (Negative) 11/24/18 12:07 Hep B Core IgM Ab Non-reactive (NonReactive) 11/24/18 12:07 Hepatitis C Antibody Reactive (NonReactive) A 11/24/18 12:07 Active Medications - Current Medications Current Medications: Generic Name Dose Route Start Last Admin Trade Name Freq PRN Reason Stop Dose Admin Acetaminophen 650 mg 11/24/18 14:00 11/29/18 22:27 Tylenol PO 650 mg Q4H PRN Administration Pain MILD(1-3)/Fever >100.5/LAMBERT Albuterol 2.5 mg 11/24/18 14:00 Proventil IH Q4HRT PRN Shortness Of Breath Calcitonin [place] 400 unit 11/30/18 08:20 12/02/18 23:17 Miacalcin IM 400 unit Q12HR MAIRA Administration Famotidine 10 mg 11/25/18 10:00 12/02/18 23:18 Pepcid PO 10 mg BID MAIRA Administration Heparin Sodium (Porcine) 5,000 unit 11/30/18 22:00 12/02/18 23:17 Heparin SUB-Q 5,000 unit Q12HR MAIRA Administration Sodium Chloride 100 mls @ 999 mls/hr 11/30/18 10:33 Nacl 0.9% IV LOREN PRN Hypotension Dexamethasone 40 mg/ Sodium 60 mls @ 100 mls/hr 12/03/18 10:00 Chloride IV 12/07/18 09:59 Q24HR MAIRA Midodrine 10 mg 11/26/18 16:00 12/02/18 16:10 Proamatine PO 10 mg TID@0800,1200,1600 MAIRA Administration Morphine Sulfate 2 mg 12/02/18 16:56 Morphine IV Q4H PRN Pain, Moderate (4-6) Nitroglycerin 0.4 mg 11/25/18 01:02 Nitrostat SL .Q5MIN PRN Chest Pain Nitroglycerin 0.5 inch 11/25/18 06:00 12/03/18 06:07 Nitro-Bid 2% TP 0.5 inch TIDNTG MAIRA Administration Protocol Ondansetron HCl 4 mg 11/24/18 14:00 12/02/18 09:30 Zofran IV 4 mg Q8H PRN Administration Nausea And Vomiting Sodium Chloride 10 ml 11/24/18 22:00 12/02/18 23:21 Sodium Chloride Flush Syringe 10 Ml IV 10 ml BID MAIRA Administration Sodium Chloride 10 ml 11/24/18 14:00 Sodium Chloride Flush Syringe 10 Ml IV PRN PRN LINE FLUSH Nutrition/Malnutrition Assess - Dietary Evaluation Nutrition/Malnutrition Findings: Nutrition Notes Start: 11/25/18 13:34 Freq: Status: Active Protocol: Document 12/02/18 15:31 RM (Rec: 12/02/18 15:56 RM [id number]) Nutrition Notes Initial or Follow up Reassessment Current Diagnosis Acute Kidney Injury,CKD (stage V CKD),Hypertension Other Pertinent Diagnosis On HD, bipolar, non compliance w/ICHD tx, hep C, hyperkalemia Current Diet Renal,Cardiac w/Nepro BID Labs/Tests Reviewed Pertinent Medications Reviewed Height 5 ft 4 in Weight 44.3 kg [place] Body Weight (kg) 54.54 BMI 16.7 Subjective/Other Information Pt confused and not responding to questions at time of visit . Per nurse pt has not been eating and barely takes sips of Nepro. Fraud Prevention Analyst recommended TF to MD. Noted temporal and orbital wasting. Percent of energy/protein needs met: 0%/0% Burn Absent Trauma Absent Minimum of two criteria Yes Body Fat Depletion Moderate depletion (severe) Muscle Mass Mild Depletion (non-severe) #2 Nutrition Diagnosis Malnutrition Etiology ESRD on HD, metabolic encephalopathy As Evidenced by Signs and Symptoms BMI 16.8, temporal wasting, orbital wasting #1 Nutrition Diagnosis Inadequate oral intake Diagnosis Progress(for reassessment Continues documentation) Is patient on ventilator? No Is Patient Ambulatory and/or Out of Bed No REE-([place]-St. Jeor-confined to bed) 1149.696 Kcal/Kg value to use for calculation 35 Approximate Energy Requirements Using 1551 kcal/Kg Calculation Used for Recommendations Kcal/kg Additional Notes PRO needs >1.2 g/kg/day Fluid needs: 1-1.5L/day Nutrition Intervention Change Diet Order: TF consult Add Supplement/Snack (indicate name/kcal Nepro 1 daily /protein ) Provides kCal: 425 Provides Protein (gm) 19 Goal #1 TF consult Anticipated Discharge Needs: Unable to determine at this time Follow-Up By: 12/04/18 Additional Comments Follow for TF consult
--- NOTE | 2018-12-03 08:45 | Progress Note ---
Subjective Principal diagnosis: hypercalcemia - possible myeloma Interval history: Patient was seen today for follow-up of multiple renal related issues patient has been noted to be tachycardic Interdisciplinary notes that also reviewed Events of 24 hours vitals labs intake output medications were reviewed Past medical history: Reviewed Family history: Reviewed Social history: Reviewed Allergies: Reviewed Physical examination: Vitals: Reviewed HEENT: No pallor or icterus oral mucosa moist Neck: Supple no JVD no thyromegaly Chest: Bilateral clear to auscultation anteriorly Heart:irregular rate and rhythm S1-S2 heard no S3-S4 Abdomen: Soft nontender no voluntary guarding rigidity rebound Extremity:skin appears to be very dry Psychiatric: No evidence of agitation and aggression noted Dermatology: No petechial rashes Labs and x-rays: Reviewed from today Assessment and plan End-stage renal disease: Patient is currently on hemodialysis on Sunday schedule, monitor dialysis related labs periodically Patient will need hemodialysis treatment today, this will be an additional treatment for approximately 4 hours arrhythmia with hypotension, pending cardiology evaluation, may need more fluid She has been mildly hypotensive given orders to the nurse to give her 500 cc of normal saline Heart tachycardia and hypotension could be due to electrolyte disturbances as well as dehydration, if required patient can receive more fluid during dialysis I believe she clinically appears to be very dry Patient is being followed by oncology service for myeloma skeletal survey is positive will need to look at her old records from the other hospital Dialysis access: Currently working well Hemoglobin stable from ESRD standpoint Parathyroid hormone appears to be normal Multiple comorbidities including hepatitis C hypotension hypercalcemia, noncompliance with dialysis Prognosis guarded to poor, due to dialysis status We'll continue to follow and make recommendation for renal standpoint Objective - Vital Signs Vital signs: Vital Signs - 12hr 12/02/18 12/03/18 12/03/18 22:00 02:03 06:07 Temperature 98.4 F Pulse Rate 109 H 107 H Pulse Rate [ 109 H From Monitor] Respiratory 18 18 Rate Blood Pressure 101/56 92/52 O2 Sat by Pulse 97 97 Oximetry 12/03/18 07:41 Temperature Pulse Rate 126 H Pulse Rate [ From Monitor] Respiratory Rate Blood Pressure O2 Sat by Pulse Oximetry - Lab 12/03/18 11:29 12/03/18 05:39 Most recent lab results Calcium 12.9 mg/dL (8.4-10.2) H* 12/03/18 05:39 Phosphorus 5.00 mg/dL (2.5-4.5) H 11/27/18 04:39 Magnesium 2.10 mg/dL (1.7-2.3) 11/27/18 04:39 Medications & Allergies - Medications Allergies/Adverse Reactions: Allergies acetaminophen [From Vicodin] Adverse Reaction (Verified 05/01/15 11:19) Vomiting hydrocodone bitartrate [From Vicodin] Adverse Reaction (Verified 05/01/15 11:19) Vomiting Home Medications: Home Medications Medication Instructions Recorded Confirmed Last Taken Type raNITIdine HCl [Zantac 300 MG TAB] 300 mg PO QPM #14 tablet 12/31/15 11/25/18 Unknown Rx traMADol [Ultram] 50 mg PO Q6HR PRN #20 tablet 12/31/15 11/25/18 Unknown Rx Active Medications: Generic Name Dose Route Start Last Admin Trade Name Freq PRN Reason Stop Dose Admin Acetaminophen 650 mg 11/24/18 14:00 11/29/18 22:27 Tylenol PO 650 mg Q4H PRN Administration Pain MILD(1-3)/Fever >100.5/LAMBERT Albuterol 2.5 mg 11/24/18 14:00 Proventil IH Q4HRT PRN Shortness Of Breath Calcitonin [place] 400 unit 11/30/18 08:20 12/02/18 23:17 Miacalcin IM 400 unit Q12HR MAIRA Administration Famotidine 10 mg 11/25/18 10:00 12/02/18 23:18 Pepcid PO 10 mg BID MAIRA Administration Heparin Sodium (Porcine) 5,000 unit 11/30/18 22:00 12/02/18 23:17 Heparin SUB-Q 5,000 unit Q12HR MAIRA Administration Sodium Chloride 100 mls @ 999 mls/hr 11/30/18 10:33 Nacl 0.9% IV LOREN PRN Hypotension Dexamethasone 40 mg/ Sodium 60 mls @ 100 mls/hr 12/03/18 10:00 Chloride IV 12/07/18 09:59 Q24HR MAIRA Midodrine 10 mg 11/26/18 16:00 12/02/18 16:10 Proamatine PO 10 mg TID@0800,1200,1600 MAIRA Administration Morphine Sulfate 2 mg 12/02/18 16:56 Morphine IV Q4H PRN Pain, Moderate (4-6) Nitroglycerin 0.4 mg 11/25/18 01:02 Nitrostat SL .Q5MIN PRN Chest Pain Nitroglycerin 0.5 inch 11/25/18 06:00 12/03/18 06:07 Nitro-Bid 2% TP 0.5 inch TIDNTG MAIRA Administration Protocol Ondansetron HCl 4 mg 11/24/18 14:00 12/02/18 09:30 Zofran IV 4 mg Q8H PRN Administration Nausea And Vomiting Sodium Chloride 10 ml 11/24/18 22:00 12/02/18 23:21 Sodium Chloride Flush Syringe 10 Ml IV 10 ml BID MAIRA Administration Sodium Chloride 10 ml 11/24/18 14:00 Sodium Chloride Flush Syringe 10 Ml IV PRN PRN LINE FLUSH
[2018-12-03] MEDS ORDERED: DECADRON 20 MG in NACL 0.9% 50 ML IV SCH (10:00)
[2018-12-03] MEDS ORDERED: ELIQUIS PO SCH (10:02)
--- NOTE | 2018-12-03 10:05 | Progress Note ---
Assessment and Plan We were called to re-evaluate pt due to tachycardia noted on telemetry, tele reviewed - pt noted to be in AFib/AFlutter with RVR which appears to have begun yesterday evening around 6PM. This is a new diagnosis. Pt appears to have chronic hypotension and is receiving midodrine TID. Optimize HR - initiate IV amiodarone in setting of hypotension. Pt to be tx to telemetry per Dr. Mcallister. Pt may benefit from systemic AC in regards to atrial fibrillation. Will initiate heparin gtt and consider initiation of OAC prior to hospital discharge. The patient has been seen in conjunction with Dr. Rendon who agrees with the assessment and plan of care. - Patient Problems (1) Atrial fibrillation with RVR Current Visit: Yes Status: Acute (2) NSTEMI (non-ST elevated myocardial infarction) Current Visit: Yes Status: Acute Plan to address problem: type II (3) Acute heart failure with preserved ejection fraction (HFpEF) Current Visit: Yes Status: Resolved (4) Hypotension Current Visit: Yes Status: Chronic (5) Hyperkalemia Current Visit: Yes Status: Resolved (6) Chest pain Current Visit: Yes Status: Resolved (7) Abdominal pain Current Visit: Yes Status: Acute (8) ESRD (end stage renal disease) Current Visit: Yes Status: Chronic (9) HCV (hepatitis C virus) Current Visit: Yes Status: Chronic Qualifiers: Viral hepatitis chronicity: chronic Subjective Date of service: 12/03/18 Principal diagnosis: hypercalcemia - possible myeloma Interval history: called to re-evaluate pt due to tachycardia, tele reviewed - pt noted to be in AFib/AFlutter with RVR which appears to have begun yesterday evening around 6PM. pt resting in bed, c/o chest pain with inspiration and coughing. Objective Last Vital Signs Temp 97.5 F L 12/03/18 08:00 Pulse 108 H 12/03/18 08:09 Resp 18 12/03/18 02:03 BP 89/51 12/03/18 08:09 Pulse Ox 97 12/03/18 08:09 - Physical Examination General: No Apparent Distress HEENT: Positive: EOMI, Normocephaly, Mucus Membranes Moist Neck: Positive: neck supple, trachea midline Cardiac: Positive: irregularly irregular, S1/S2, Tachycardia Lungs: Positive: Decreased Breath Sounds Neuro: Positive: Other (Confused. No focal deficit.) Abdomen: Positive: Soft, Active Bowel Sounds. Negative: Tender Skin: Positive: Clear. Negative: Rash Musculoskeletal: Normal Range of Motion Extremities: Present: normal - Labs and Meds Comprehensive Metabolic Panel 12/02/18 12/03/18 Range/Units 09:20 05:39 Sodium 139 137 (137-145) mmol/L Potassium 4.6 4.1 (3.6-5.0) mmol/L Chloride 94.3 L 96.5 L (98-107) mmol/L Carbon Dioxide 21 L 24 (22-30) mmol/L BUN 60 H 24 H (7-17) mg/dL Creatinine 7.6 H 4.1 H (0.7-1.2) mg/dL Glucose 83 84 (65-100) mg/dL Calcium > 13.0 H* 12.9 H* (8.4-10.2) mg/dL - Imaging and Cardiology EKG: report reviewed, image reviewed Pharmacologic stress test: report reviewed (11/2018: negative) Echo: report reviewed (EF 55-60%, LA severely dilated, mod MR, mild TR. ) - Telemetry EKG Rhythm: Atrial Fibrillation - EKG Sinus rhythms and dysrhythmias: sinus rhythm AV and intraventricular conduction: left anterior fascicular Repolarization changes or abnormalities: ST or T wave suggestive of ischemia
[2018-12-03] MEDS ORDERED: NACL 0.9% 500 ML 500 ML IV ONE (10:35)
[2018-12-03] MEDS ORDERED: HEPARIN 10,000 UNITS/10 ML IV ONE (10:36)
[2018-12-03] MEDS ORDERED: CORDARONE 150 MG in D5W 97 ML IV ONE (11:00)
[2018-12-03] MEDS ORDERED: HEPARIN/ 0.45% NACL-25,000 UNIT/500 ML 25,000 UNIT/500 ML BAG IV SCH (11:00)
[2018-12-03] MEDS: SODIUM CHLORIDE FLUSH SYRINGE 10 ML IV SCH (11:31)
[2018-12-03 11:54] LABS: Hematocrit 32.5 % (30.3-42.9); Hemoglobin 10.4 gm/dl (10.1-14.3)
[2018-12-03 12:41] LABS: INR 1.21 (0.87-1.13)
[2018-12-03] MEDS: PEPCID PO SCH ×3 (12:47→23:28)
[2018-12-03] MEDS: MIACALCIN IM SCH ×2 (12:47→23:55)
[2018-12-03] MEDS: PROAMATINE PO SCH ×3 (12:47→22:16)
[2018-12-03] MEDS: DECADRON IV SCH (12:51)
[2018-12-03] MEDS: NACL 0.9% IV SCH (12:51)
[2018-12-03 12:56] LABS: Partial Thromboplastin Time 46.5 Sec. (24.2-36.6)
[2018-12-03] MEDS: TYLENOL PO PRN (13:04)
[2018-12-03] MEDS ORDERED: NACL 0.9 (PRIMING MACHINE ONLY DIALYSIS) MC ONE (17:00)
[2018-12-03] MEDS: MORPHINE IV PRN ×2 (21:58→23:53)
[2018-12-03] MEDS: CORDARONE 900 MG in D5W 482 ML IV SCH (22:18)
[2018-12-03] MEDS: D5NS 1,000 ML IV SCH (22:19)
[2018-12-04] MEDS: CORDARONE 900 MG in D5W 482 ML IV SCH (00:01)
--- NOTE | 2018-12-04 07:21 | Hem/Onc Progress Note ---
Assessment and Plan 1. Hypercalcemia persistent. PTH is not elevated at 26. Total proteins are elevated with gammaglobulin of 2.5. Abnormal protein band of 1.1 and 1. multiple myeloma as a differential. skeletal survey. MCV is elevated, deficiency investigations for same. KNOWN TO HAVE MYELOMA - WAS TREATED AT ? [facility] 2. End-stage renal disease, on dialysis. 3. History of hypertension. 4. History of hepatitis C. 5. History of malnutrition. 6. History of nicotine dependence. 7. History of hyperkalemia s/p calcium gluconate 8. History of encephalopathy. 9. I will follow the patient during inpatient stay. She also has been treated for non-ST elevation myocardial infarction. skeletal survey - lytic lesion + dexa trial for myeloma BMBX - REFUSED ? transfer for initial chemo - as calcium is not responding to pamidronate and calcitonin - EMROY REFUSED PER DR BECKHAM - DEXA FOR NOW - Patient Problems (1) Hypercalcemia Current Visit: Yes Status: Acute Subjective Date of service: 12/04/18 Principal diagnosis: myeloma - high caclium Interval history: no bleeding Objective - Exam Narrative Exam: Pain - present General appearance - stable - thin built Performance status limited self care Eyes - no icterus ENT - no bleeding LNs cervical not palpable Neck - no LN Respiratory Normal Breath sounds - CTA anteriorly CVS S1 S2 + Extremities no calf tenderness General GI Soft Rectal deferred female - deferred Skin warm Musculoskeletal moves limbs Neurologically - alert awake - Constitutional Vitals: Last Vital Signs Temp 97.8 F 12/04/18 04:15 Pulse 75 12/04/18 04:15 Resp 18 12/04/18 04:15 BP 77/42 12/04/18 04:15 Pulse Ox 100 12/04/18 04:15 - Labs Lab Results: Laboratory Results - last 24 hr 12/03/18 12/03/18 12/03/18 11:29 11:59 12:01 Hgb 10.4 Hct 32.5 Plt Count 180 PT 15.0 H INR 1.21 H APTT 46.5 H POC Glucose 67 L Medications & Allergies - Medications Allergies/Adverse Reactions: Allergies acetaminophen [From Vicodin] Adverse Reaction (Verified 05/01/15 11:19) Vomiting hydrocodone bitartrate [From Vicodin] Adverse Reaction (Verified 05/01/15 11:19) Vomiting Home Medications: Home Medications Medication Instructions Recorded Confirmed Last Taken Type raNITIdine HCl [Zantac 300 MG TAB] 300 mg PO QPM #14 tablet 12/31/15 11/25/18 Unknown Rx traMADol [Ultram] 50 mg PO Q6HR PRN #20 tablet 12/31/15 11/25/18 Unknown Rx Active Medications: Generic Name Dose Route Start Last Admin Trade Name Freq PRN Reason Stop Dose Admin Acetaminophen 650 mg 11/24/18 14:00 11/29/18 22:27 Tylenol PO 650 mg Q4H PRN Administration Pain MILD(1-3)/Fever >100.5/LAMBERT Albuterol 2.5 mg 11/24/18 14:00 Proventil IH Q4HRT PRN Shortness Of Breath Calcitonin [place] 400 unit 11/30/18 08:20 12/03/18 23:55 Miacalcin IM 400 unit Q12HR MAIRA Administration Famotidine 10 mg 11/25/18 10:00 12/03/18 23:28 Pepcid PO 10 mg BID MAIRA Administration Sodium Chloride 100 mls @ 999 mls/hr 11/30/18 10:33 Nacl 0.9% IV LOREN PRN Hypotension Dexamethasone 40 mg/ Sodium 60 mls @ 100 mls/hr 12/03/18 10:00 12/03/18 12:51 Chloride IV 12/07/18 09:59 100 mls/hr Q24HR MAIRA Administration Amiodarone HCl 900 mg/ 500 mls @ 33.333 mls/hr 12/03/18 12:00 12/04/18 00:01 Dextrose IV 1 mg/min DIRECT MAIRA 33.333 mls/hr Administration Protocol 1 MG/MIN Heparin Sodium/Sodium Chloride 25,000 unit in 500 mls @ 12 mls/hr 12/03/18 11:00 12/03/18 22:03 Heparin/ 0.45% Nacl-25,000 Unit/500 Ml IV 600 units/hr TITR MAIRA 12 mls/hr Administration Protocol 600 UNITS/HR Dextrose/Sodium Chloride 1,000 mls @ 42 mls/hr 12/03/18 19:00 12/03/18 22:19 D5ns IV 42 mls/hr DIRECT MAIRA Administration Midodrine 10 mg 11/26/18 16:00 12/03/18 22:16 Proamatine PO 10 mg TID@0800,1200,1600 MAIRA Administration Morphine Sulfate 2 mg 12/02/18 16:56 12/03/18 23:53 Morphine IV 2 mg Q4H PRN Administration Pain, Moderate (4-6) Nitroglycerin 0.4 mg 11/25/18 01:02 Nitrostat SL .Q5MIN PRN Chest Pain Ondansetron HCl 4 mg 11/24/18 14:00 12/02/18 09:30 Zofran IV 4 mg Q8H PRN Administration Nausea And Vomiting Sodium Chloride 10 ml 11/24/18 22:00 12/04/18 00:00 Sodium Chloride Flush Syringe 10 Ml IV 10 ml BID MAIRA Administration Sodium Chloride 10 ml 11/24/18 14:00 Sodium Chloride Flush Syringe 10 Ml IV PRN PRN LINE FLUSH
[2018-12-04] MEDS: PROAMATINE PO SCH ×4 (09:24→17:00)
[2018-12-04] MEDS: PEPCID PO SCH ×2 (09:25→21:34)
[2018-12-04] MEDS: SODIUM CHLORIDE FLUSH SYRINGE 10 ML IV SCH ×3 (09:26→21:35)
[2018-12-04] MEDS ORDERED: ZOFRAN IV ONE (09:34)
[2018-12-04] MEDS: MORPHINE IV PRN ×3 (09:40→18:55)
[2018-12-04] MEDS: NACL 0.9% IV SCH (09:47)
[2018-12-04] MEDS: DECADRON IV SCH (09:47)
--- NOTE | 2018-12-04 10:04 | Progress Note ---
Assessment and Plan Pt in SR, converted to SR around 12PM yesterday. Amio and heparin gtt infusing. D/c amio gtt and monitor on telemetry. Also, no current indication for systemic AC given brief duration of AFib. D/c heparin gtt. The patient has been seen in conjunction with Dr. Rendon who agrees with the assessment and plan of care. - Patient Problems (1) Atrial fibrillation with RVR Current Visit: Yes Status: Resolved (2) NSTEMI (non-ST elevated myocardial infarction) Current Visit: Yes Status: Acute Plan to address problem: type II (3) Acute heart failure with preserved ejection fraction (HFpEF) Current Visit: Yes Status: Resolved (4) Hypotension Current Visit: Yes Status: Chronic (5) Hyperkalemia Current Visit: Yes Status: Resolved (6) Chest pain Current Visit: Yes Status: Resolved (7) Abdominal pain Current Visit: Yes Status: Acute (8) ESRD (end stage renal disease) Current Visit: Yes Status: Chronic (9) HCV (hepatitis C virus) Current Visit: Yes Status: Chronic Qualifiers: Viral hepatitis chronicity: chronic Subjective Date of service: 12/04/18 Principal diagnosis: myeloma - high caclium Interval history: pt resting in bed, no current cardiac complaints. c/o abdominal pain aggravated by coughing, no n/v/d. tele reviewed - pt in SR, converted to SR around 12PM yesterday. amio and heparin gtt infusing. Objective Last Vital Signs Temp 97.8 F 12/04/18 04:15 Pulse 75 12/04/18 04:15 Resp 18 12/04/18 04:15 BP 77/42 12/04/18 04:15 Pulse Ox 100 12/04/18 04:15 - Physical Examination General: No Apparent Distress, Cachectic HEENT: Positive: EOMI, Normocephaly, Mucus Membranes Moist Neck: Positive: neck supple, trachea midline Cardiac: Positive: Reg Rate and Rhythm, S1/S2 Lungs: Positive: clear to auscultation Neuro: Positive: Grossly Intact Abdomen: Positive: Soft, Active Bowel Sounds. Negative: Tender Skin: Positive: Clear. Negative: Rash Musculoskeletal: Normal Range of Motion Extremities: Present: normal - Labs and Meds Coagulation 12/03/18 Range/Units 11:59 PT 15.0 H (12.2-14.9) Sec. INR 1.21 H (0.87-1.13) APTT 46.5 H (24.2-36.6) Sec. CBC 12/03/18 Range/Units 11:29 Hgb 10.4 (10.1-14.3) gm/dl Hct 32.5 (30.3-42.9) % Plt Count 180 (140-440) K/mm3 - Imaging and Cardiology EKG: report reviewed, image reviewed Echo: report reviewed (EF 55-60%, LA severely dilated, mod MR, mild TR. ) - Telemetry EKG Rhythm: Sinus Rhythm - EKG Sinus rhythms and dysrhythmias: sinus rhythm AV and intraventricular conduction: left anterior fascicular Repolarization changes or abnormalities: ST or T wave suggestive of ischemia
[2018-12-04 10:33] LABS: Hematocrit 26.9 % (30.3-42.9); Hemoglobin 9.1 gm/dl (10.1-14.3); Mean Corpuscular HGB Conc 34 % (30-34); Mean Corpuscular Volume 109 fl (79-97); Platelet Count 148 K/mm3 (140-440); Red Blood Count 2.46 M/mm3 (3.65-5.03); Red Cell Distribution Width 16.1 % (13.2-15.2)
[2018-12-04 10:35] LABS: Albumin 3.9 g/dL (3.9-5); Calcium 11.2 mg/dL (8.4-10.2)
[2018-12-04] MEDS: MIACALCIN IM SCH (10:37)
--- NOTE | 2018-12-04 11:07 | Progress Note ---
Subjective Principal diagnosis: myeloma - high caclium Interval history: Patient was seen today for follow-up of multiple renal related issues Interdisciplinary notes that also reviewed Has had HD yesterday Events of 24 hours vitals labs intake output medications were reviewed Past medical history: Reviewed Family history: Reviewed Social history: Reviewed Allergies: Reviewed Physical examination: Vitals: Reviewed HEENT: No pallor or icterus oral mucosa moist Neck: Supple no JVD no thyromegaly Chest: Bilateral clear to auscultation anteriorly Heart:irregular rate and rhythm S1-S2 heard no S3-S4 Abdomen: Soft nontender no voluntary guarding rigidity rebound Extremity:skin appears to be very dry Psychiatric: No evidence of agitation and aggression noted Dermatology: No petechial rashes Labs and x-rays: Reviewed from today Assessment and plan End-stage renal disease: Patient is currently on hemodialysis End-stage renal disease: We'll now dialyze the patient on Sunday schedule Hypercalcemia appears to be improving patient also receiving treatment for myeloma Discontinue Keri calcitonin for now and follow Multiple myeloma being followed by oncology service Patient does have history of multiple myeloma and has been followed by [place] [facility] Overall she is stable from renal standpoint Arrhythmia with hypotension, pending cardiology evaluation, may need more fluid Dialysis access: Currently working well Hemoglobin stable from ESRD standpoint Parathyroid hormone appears to be normal Multiple comorbidities including hepatitis C hypotension hypercalcemia, noncompliance with dialysis Prognosis guarded to poor, due to dialysis status We'll continue to follow and make recommendation for renal standpoint Objective - Vital Signs Vital signs: Vital Signs - 12hr 12/03/18 12/03/18 12/04/18 23:08 23:53 00:12 Temperature 98.1 F Pulse Rate 83 70 Respiratory 20 18 Rate Blood Pressure 109/65 O2 Sat by Pulse 99 Oximetry 12/04/18 04:15 Temperature 97.8 F Pulse Rate 75 Respiratory 18 Rate Blood Pressure 77/42 O2 Sat by Pulse 100 Oximetry - Lab 12/04/18 09:51 12/04/18 09:51 Most recent lab results Calcium 11.2 mg/dL (8.4-10.2) H 12/04/18 09:51 Phosphorus 5.00 mg/dL (2.5-4.5) H 11/27/18 04:39 Magnesium 2.10 mg/dL (1.7-2.3) 11/27/18 04:39 Medications & Allergies - Medications Allergies/Adverse Reactions: Allergies acetaminophen [From Vicodin] Adverse Reaction (Verified 05/01/15 11:19) Vomiting hydrocodone bitartrate [From Vicodin] Adverse Reaction (Verified 05/01/15 11:19) Vomiting Home Medications: Home Medications Medication Instructions Recorded Confirmed Last Taken Type raNITIdine HCl [Zantac 300 MG TAB] 300 mg PO QPM #14 tablet 12/31/15 11/25/18 Unknown Rx traMADol [Ultram] 50 mg PO Q6HR PRN #20 tablet 12/31/15 11/25/18 Unknown Rx Active Medications: Generic Name Dose Route Start Last Admin Trade Name Freq PRN Reason Stop Dose Admin Acetaminophen 650 mg 11/24/18 14:00 11/29/18 22:27 Tylenol PO 650 mg Q4H PRN Administration Pain MILD(1-3)/Fever >100.5/LAMBERT Albuterol 2.5 mg 11/24/18 14:00 Proventil IH Q4HRT PRN Shortness Of Breath Calcitonin [place] 400 unit 11/30/18 08:20 12/04/18 10:37 Miacalcin IM 400 unit Q12HR MAIRA Administration Famotidine 10 mg 11/25/18 10:00 12/04/18 09:25 Pepcid PO 10 mg BID MAIRA Administration Heparin Sodium (Porcine) 5,000 unit 12/04/18 22:00 Heparin SUB-Q Q12HR MAIRA Hydromorphone HCl 1 mg 12/04/18 12:00 Dilaudid IV 12/04/18 12:01 ONCE ONE Sodium Chloride 100 mls @ 999 mls/hr 11/30/18 10:33 Nacl 0.9% IV LOREN PRN Hypotension Dexamethasone 40 mg/ Sodium 60 mls @ 100 mls/hr 12/03/18 10:00 12/04/18 09:47 Chloride IV 12/07/18 09:59 100 mls/hr Q24HR MAIRA Administration Dextrose/Sodium Chloride 1,000 mls @ 42 mls/hr 12/03/18 19:00 12/03/18 22:19 D5ns IV 42 mls/hr DIRECT MAIRA Administration Midodrine 10 mg 11/26/18 16:00 12/04/18 09:30 Proamatine PO 10 mg TID@0800,1200,1600 MAIRA Administration Morphine Sulfate 2 mg 12/02/18 16:56 12/04/18 09:40 Morphine IV 2 mg Q4H PRN Administration Pain, Moderate (4-6) Nitroglycerin 0.4 mg 11/25/18 01:02 Nitrostat SL .Q5MIN PRN Chest Pain Ondansetron HCl 4 mg 11/24/18 14:00 12/02/18 09:30 Zofran IV 4 mg Q8H PRN Administration Nausea And Vomiting Sodium Chloride 10 ml 11/24/18 22:00 12/04/18 09:26 Sodium Chloride Flush Syringe 10 Ml IV 10 ml BID MAIRA Administration Sodium Chloride 10 ml 11/24/18 14:00 Sodium Chloride Flush Syringe 10 Ml IV PRN PRN LINE FLUSH
[2018-12-04] MEDS ORDERED: DILAUDID IV ONE (12:00)
[2018-12-04 12:45] LABS: INR 1.07 (0.87-1.13)
[2018-12-04 12:47] LABS: Partial Thromboplastin Time 39.5 Sec. (24.2-36.6)
--- NOTE | 2018-12-04 15:08 | Progress Note ---
Assessment and Plan Assessment and plan: 68 YO Female with Nicotine Dependence, HTN, OA, HCV, Bipolar, Anxiety, Severe Malnutrition, ESRD on HD(T,R,Sa), Noncompliance with Dialysis presents to ED for evaluation. Pt is confused and unable to provide detailed history at time of my exam. Pt history taken from ED staff and patient son who is at bedside during exam and interview. 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 Pt transported to [facility] via private vehicle. * In ED and found to have ESRD, Acidosis, Encephalopathy, and Hyperkalemia, Hypercalcemia initial thought to be secondary to missed dialysis sessions. Nephrology consulted in ED for urgent dialysis. Despite dialysis, patient showed no improvement in hypercalcemia * Pt is confused, and lethargic, but has a positive gag reflex, and in able to protect her airway. No evidence of Infection noted * Patient noted to have elevated Troponin and NSTEMI protocol initiated. Review of previous records shows normal tropnin and no evidence of prior cardiac work up * Patient was given Palmidronate and Calcitonin with no improvement * Hematology consulted for persistent Hypercalcemia, PTH not elevated, but Total proteins elevated with gammaglobulin of 2.5 and abnormal band of 1.1 and 1. Skeletal survey done and showed Lytic lesions, Dexa started as trial for myeloma * Called [facility] and was informed patient had been diagosed with multiple Myeloma for years now. Requesting records Afib with Rvr Treated with amiodarone drip Cardiology following Hypercalemia- secondary to multiple myeloma Continue calcitonin, pamidronate also given DEXA STARTED Multiple Myeloma As noted above ESRD (end stage renal disease) Nephrology following. Elevated Troponin due to NSTEMI Type 2 Stress test was negative, cardiology following Acute Respiratory failure secondary Fluid overload Secondary to missed dialysis, supportive care, urgent dialysis. Wean oxygen, Acute metabolic Encephalopathy CT head is negative for acute disease Confusion on and off Metabolic acidosis Plan to address problem: Corrected on IV bicarbonate therapy, Malnutrition Protein-calorie malnutrition severity: severe Increased protein intake, dietary supplementation. Osteoarthritis pain control, supportive care. Hyperkalemia Now resolved Insulin, Dextrose 50% discussed with Nephrology Hypoglycemia Start on D5 Hypotension on MIDODRINE Chronic Hep C Outpatient GI F/U care, Discussed with Dr Gaspar Anticipate discharge in am to follow with hematology for CHEMO History Interval history: Patient seen and examined today, sitting up today, HR better controlled, she is wants to know who she will follow for her myeloma. 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 Hospitalist Physical - Physical exam Narrative exam: Gen: Not in acute distress, lying in bed malnourished HEENT: Normocephalic, atraumatic Neck: supple, no JVD Heart: S1 and S2 regular, no murmurs, rubs or gallop Lungs: Clear to auscultation, no rhonchi, no wheeze Abd: soft, non tender, non distended, normal BS, Ext: No edema, no clubbing, no cyanosis Neuro: Awake, alert, mild confused, no focal neurological signs - Constitutional Vitals: Temp Pulse Resp BP Pulse Ox 97.8 F 72 20 77/42 100 12/04/18 04:15 12/04/18 11:36 12/04/18 11:36 12/04/18 04:15 12/04/18 04:15 General appearance: Present: no acute distress Results - Labs CBC & Chem 7: 12/04/18 09:51 12/04/18 09:51 Labs: Laboratory Last Values WBC 9.1 K/mm3 (4.5-11.0) 12/04/18 09:51 RBC 2.46 M/mm3 (3.65-5.03) L 12/04/18 09:51 Hgb 9.1 gm/dl (10.1-14.3) L 12/04/18 09:51 Hct 26.9 % (30.3-42.9) L 12/04/18 09:51 MCV 109 fl (79-97) H 12/04/18 09:51 MCH 37 pg (28-32) H 12/04/18 09:51 MCHC 34 % (30-34) 12/04/18 09:51 RDW 16.1 % (13.2-15.2) H 12/04/18 09:51 Plt Count 148 K/mm3 (140-440) 12/04/18 09:51 Lymph % (Auto) 12.5 % (13.4-35.0) L 11/27/18 04:39 [place] % (Auto) 10.8 % (0.0-7.3) H 11/27/18 04:39 Eos % (Auto) 3.0 % (0.0-4.3) 11/27/18 04:39 Baso % (Auto) 0.8 % (0.0-1.8) 11/27/18 04:39 Lymph # 0.9 K/mm3 (1.2-5.4) L 11/27/18 04:39 [place] # 0.8 K/mm3 (0.0-0.8) 11/27/18 04:39 Eos # 0.2 K/mm3 (0.0-0.4) 11/27/18 04:39 Baso # 0.1 K/mm3 (0.0-0.1) 11/27/18 04:39 Seg Neutrophils % 72.9 % (40.0-70.0) H 11/27/18 04:39 Seg Neutrophils # 5.2 K/mm3 (1.8-7.7) 11/27/18 04:39 PT 13.6 Sec. (12.2-14.9) 12/04/18 09:51 INR 1.07 (0.87-1.13) 12/04/18 09:51 APTT 39.5 Sec. (24.2-36.6) H 12/04/18 09:51 Heparin Anti-Xa Level 0.10 U.I./ml (0.3-0.7) L 12/04/18 09:51 Sodium 137 mmol/L (137-145) 12/04/18 09:51 Potassium 4.2 mmol/L (3.6-5.0) 12/04/18 09:51 Chloride 96.5 mmol/L (98-107) L 12/04/18 09:51 Carbon Dioxide 22 mmol/L (22-30) 12/04/18 09:51 Anion Gap 23 mmol/L 12/04/18 09:51 BUN 18 mg/dL (7-17) H 12/04/18 09:51 Creatinine 2.9 mg/dL (0.7-1.2) H 12/04/18 09:51 Estimated GFR 19 ml/min 12/04/18 09:51 BUN/Creatinine Ratio 6 % 12/04/18 09:51 Glucose 97 mg/dL (65-100) 12/04/18 09:51 POC Glucose 67 (70-105) L 12/03/18 12:01 Calcium 11.2 mg/dL (8.4-10.2) H 12/04/18 09:51 Phosphorus 5.00 mg/dL (2.5-4.5) H 11/27/18 04:39 Magnesium 2.10 mg/dL (1.7-2.3) 11/27/18 04:39 Total Bilirubin 0.30 mg/dL (0.1-1.2) 12/04/18 09:51 AST 69 units/L (5-40) H 12/04/18 09:51 ALT 8 units/L (7-56) 12/04/18 09:51 Alkaline Phosphatase 76 units/L (35-129) 12/04/18 09:51 Ammonia 53.0 umol/L (25-60) 11/24/18 12:07 Troponin T 0.178 ng/mL (0.00-0.029) H* D 11/24/18 20:20 Serum Total Protein 9.1 g/dL (6.1-8.1) H 11/26/18 12:45 Total Protein 7.8 g/dL (6.3-8.2) 12/04/18 09:51 Albumin 3.9 g/dL (3.9-5) 12/04/18 09:51 Albumin/Globulin Ratio 1.0 % 12/04/18 09:51 Wbjwp-5-Isyxtfyey 0.6 g/dL (0.2-0.3) H 11/26/18 12:45 Dqahj-8-Xldrtwpux 1.3 g/dL (0.5-0.9) H 11/26/18 12:45 Beta Globulins 0.5 g/dL (0.2-0.5) 11/26/18 12:45 Gamma Globulins 2.5 g/dL (0.8-1.7) H 11/26/18 12:45 Abnorm Protein Band 1 1.1 g/dL H 11/26/18 12:45 Abnorm Protein Band 2 1.0 g/dL H 11/26/18 12:45 PEP Interpretation see below H 11/26/18 12:45 Triglycerides 54 mg/dL (2-149) 11/24/18 10:59 Cholesterol 126 mg/dL (50-199) 11/24/18 10:59 LDL Cholesterol Direct 52 mg/dL (50-130) 11/24/18 10:59 HDL Cholesterol 64 mg/dL (40-59) H 11/24/18 10:59 Cholesterol/HDL Ratio 1.96 % 11/24/18 10:59 Angiotensin Convert Enz See scanned result 11/26/18 12:45 Vitamin B12 728.0 pg/mL (211-911) 12/02/18 06:58 Folate > 20.0 ng/mL (7.3-26.0) 12/02/18 09:20 TSH 0.533 mlU/mL (0.270-4.200) 11/24/18 12:07 Free T4 1.45 ng/dL (0.76-1.46) 11/24/18 12:07 PTH Intact 27.21 pg/mL (15-65) 12/02/18 11:41 Hepatitis A IgM Ab Non-reactive (NonReactive) 11/24/18 12:07 Hep Bs Antigen Non-reactive (Negative) 11/24/18 12:07 Hep B Core IgM Ab Non-reactive (NonReactive) 11/24/18 12:07 Hepatitis C Antibody Reactive (NonReactive) A 11/24/18 12:07 Active Medications - Current Medications Current Medications: Generic Name Dose Route Start Last Admin Trade Name Freq PRN Reason Stop Dose Admin Acetaminophen 650 mg 11/24/18 14:00 11/29/18 22:27 Tylenol PO 650 mg Q4H PRN Administration Pain MILD(1-3)/Fever >100.5/LAMBERT Albuterol 2.5 mg 11/24/18 14:00 Proventil IH Q4HRT PRN Shortness Of Breath Famotidine 10 mg 11/25/18 10:00 12/04/18 09:25 Pepcid PO 10 mg BID MAIRA Administration Heparin Sodium (Porcine) 5,000 unit 12/04/18 22:00 Heparin SUB-Q Q12HR MAIRA Sodium Chloride 100 mls @ 999 mls/hr 11/30/18 10:33 Nacl 0.9% IV LOREN PRN Hypotension Dexamethasone 40 mg/ Sodium 60 mls @ 100 mls/hr 12/03/18 10:00 12/04/18 09:47 Chloride IV 12/07/18 09:59 100 mls/hr Q24HR MAIRA Administration Dextrose/Sodium Chloride 1,000 mls @ 42 mls/hr 12/03/18 19:00 12/03/18 22:19 D5ns IV 42 mls/hr DIRECT MAIRA Administration Midodrine 10 mg 11/26/18 16:00 12/04/18 09:30 Proamatine PO 10 mg TID@0800,1200,1600 MAIRA Administration Morphine Sulfate 2 mg 12/02/18 16:56 12/04/18 09:40 Morphine IV 2 mg Q4H PRN Administration Pain, Moderate (4-6) Nitroglycerin 0.4 mg 11/25/18 01:02 Nitrostat SL .Q5MIN PRN Chest Pain Ondansetron HCl 4 mg 11/24/18 14:00 12/02/18 09:30 Zofran IV 4 mg Q8H PRN Administration Nausea And Vomiting Sodium Chloride 10 ml 11/24/18 22:00 12/04/18 09:26 Sodium Chloride Flush Syringe 10 Ml IV 10 ml BID MAIRA Administration Sodium Chloride 10 ml 11/24/18 14:00 Sodium Chloride Flush Syringe 10 Ml IV PRN PRN LINE FLUSH Nutrition/Malnutrition Assess - Dietary Evaluation Nutrition/Malnutrition Findings: Nutrition Notes Start: 11/25/18 13:34 Freq: Status: Active Protocol: Document 12/04/18 11:26 CC (Rec: 12/04/18 12:28 CC [email or web address]) Co-Sign 12/04/18 11:26 LP Nutrition Notes Initial or Follow up Reassessment Current Diagnosis Acute Kidney Injury,CKD (stage V CKD),Hypertension Other Pertinent Diagnosis On HD, bipolar Current Diet Renal Labs/Tests BUN: 24 Creat: 4.1 Ca: 12.9 Pertinent Medications Reviewed Height 5 ft 4 in Weight 44.3 kg Usual Body Weight 63.6 kg [place] Body Weight (kg) 54.54 BMI 16.7 Weight change and time frame 30%/ 1 year (significant) Weight Status Underweight Subjective/Other Information Pt stated she has had a poor appetite but was able to eat some of dinner and breakfast along with some of Nepro ONS. Pt stated her UBW is 140lbs. Pt has had a severe wt loss at 30% of 43lbs in a year. Pt stated she liked the Nepro ONS and would like to try Ensure clear-apple. Burn Absent Trauma Absent GI Symptoms None Current % PO Poor (25-49%) Minimum of two criteria Yes Energy Intake (severe) < or equal to 50% Estimated Energy Requirement > or equal to 5 days Interpretation of Weight Loss (severe) > 20% in 1 year Body Fat Depletion Moderate depletion (severe) Muscle Mass Moderate Depletion (severe) #2 Nutrition Diagnosis Malnutrition Etiology poor appetite As Evidenced by Signs and Symptoms severe wt loss >20% in 1 year, moderate fat wasting and moderate muscle wasting Diagnosis Progress(for reassessment Continues documentation) #1 Nutrition Diagnosis Inadequate oral intake Etiology poor appetite As Evidenced by Signs and Symptoms intake <50%, pt stated her appetite has not been good Diagnosis Progress(for reassessment Continues documentation) Is patient on ventilator? No Is Patient Ambulatory and/or Out of Bed No REE-([facility]-confined to bed) 1149.696 Kcal/Kg value to use for calculation 37 Approximate Energy Requirements Using 1639 kcal/Kg Calculation Used for Recommendations Kcal/kg Additional Notes PRO: 53-65g/day (1.2-1.5g/kg) Fluid: per MD Nutrition Intervention Change Diet Order: Continue Renal diet TF consult if enregy and protein needs are not met Add Supplement/Snack (indicate name/kcal Nepro butter pecan daily /protein ) Ensure clear apple daily Provides kCal: 665 Provides Protein (gm) 27 Goal #1 Meet at least 75% of kcal needs via po and ONS Goal #2 TF consult if needs cannot be met Anticipated Discharge Needs: Renal diet, ONS Follow-Up By: 12/06/18 Additional Comments F/U for po and ONS intakes
[2018-12-04] MEDS: HEPARIN SUB-Q SCH (21:35)
[2018-12-04] MEDS: D5NS 1,000 ML IV SCH (22:44)
[2018-12-05 05:32] LABS: Hematocrit 26.3 % (30.3-42.9); Hemoglobin 8.9 gm/dl (10.1-14.3)
--- NOTE | 2018-12-05 07:09 | Hem/Onc Progress Note ---
Assessment and Plan 1. Hypercalcemia persistent. PTH is not elevated at 26. Total proteins are elevated with gammaglobulin of 2.5. Abnormal protein band of 1.1 and 1. multiple myeloma as a differential. skeletal survey. MCV is elevated, deficiency investigations for same. KNOWN TO HAVE MYELOMA - WAS TREATED AT ? [facility] and [facility] 2. End-stage renal disease, on dialysis. 3. History of hypertension. 4. History of hepatitis C. 5. History of malnutrition. 6. History of nicotine dependence. 7. History of hyperkalemia s/p calcium gluconate 8. History of encephalopathy. 9. I will follow the patient during inpatient stay. She also has been treated for non-ST elevation myocardial infarction. skeletal survey - lytic lesion + dexa trial for myeloma BMBX - REFUSED ? transfer to [place] for chemo - as calcium is not responding to pamidronate and calcitonin - EMROY REFUSED PER DR BECKHAM - DEXA FOR NOW calcium better - Patient Problems (1) Hypercalcemia Current Visit: Yes Status: Acute Subjective Date of service: 12/05/18 Principal diagnosis: myeloma - high calcium Interval history: feeling better Objective - Exam Narrative Exam: Pain - present General appearance - stable - thin built Performance status limited self care Eyes - no icterus ENT - no bleeding LNs cervical not palpable Neck - no LN Respiratory Normal Breath sounds - CTA anteriorly CVS S1 S2 + Extremities no calf tenderness General GI Soft Rectal deferred female - deferred Skin warm Musculoskeletal moves limbs Neurologically - alert awake - Constitutional Vitals: Last Vital Signs Temp 97.6 F 12/05/18 04:19 Pulse 65 12/05/18 04:17 Resp 18 12/05/18 04:17 BP 122/70 12/05/18 04:17 Pulse Ox 100 12/05/18 04:17 - Labs Lab Results: Laboratory Results - last 24 hr 11/26/18 12/04/18 12/04/18 12:45 09:51 09:51 WBC 9.1 RBC 2.46 L Hgb 9.1 L Hct 26.9 L MCV 109 H MCH 37 H MCHC 34 RDW 16.1 H Plt Count 148 PT INR APTT Heparin Anti-Xa Level Sodium 137 Potassium 4.2 Chloride 96.5 L Carbon Dioxide 22 Anion Gap 23 BUN 18 H Creatinine 2.9 H Estimated GFR 19 BUN/Creatinine Ratio 6 Glucose 97 Calcium 11.2 H Total Bilirubin 0.30 AST 69 H ALT 8 Alkaline Phosphatase 76 Total Protein 7.8 Albumin 3.9 Albumin/Globulin Ratio 1.0 Angiotensin Convert Enz See scanned result 12/04/18 12/04/18 12/05/18 09:51 09:51 04:30 WBC RBC Hgb 8.9 L Hct 26.3 L MCV MCH MCHC RDW Plt Count 135 L PT 13.6 INR 1.07 APTT 39.5 H Heparin Anti-Xa Level 0.10 L Sodium Potassium Chloride Carbon Dioxide Anion Gap BUN Creatinine Estimated GFR BUN/Creatinine Ratio Glucose Calcium Total Bilirubin AST ALT Alkaline Phosphatase Total Protein Albumin Albumin/Globulin Ratio Angiotensin Convert Enz Medications & Allergies - Medications Allergies/Adverse Reactions: Allergies acetaminophen [From Vicodin] Adverse Reaction (Verified 05/01/15 11:19) Vomiting hydrocodone bitartrate [From Vicodin] Adverse Reaction (Verified 05/01/15 11:19) Vomiting Home Medications: Home Medications Medication Instructions Recorded Confirmed Last Taken Type raNITIdine HCl [Zantac 300 MG TAB] 300 mg PO QPM #14 tablet 12/31/15 11/25/18 Unknown Rx traMADol [Ultram] 50 mg PO Q6HR PRN #20 tablet 12/31/15 11/25/18 Unknown Rx Active Medications: Generic Name Dose Route Start Last Admin Trade Name Freq PRN Reason Stop Dose Admin Acetaminophen 650 mg 11/24/18 14:00 11/29/18 22:27 Tylenol PO 650 mg Q4H PRN Administration Pain MILD(1-3)/Fever >100.5/LAMBERT Albuterol 2.5 mg 11/24/18 14:00 Proventil IH Q4HRT PRN Shortness Of Breath Famotidine 10 mg 11/25/18 10:00 12/04/18 21:34 Pepcid PO 10 mg BID MAIRA Administration Heparin Sodium (Porcine) 5,000 unit 12/04/18 22:00 12/04/18 21:35 Heparin SUB-Q 5,000 unit Q12HR MAIRA Administration Sodium Chloride 100 mls @ 999 mls/hr 11/30/18 10:33 Nacl 0.9% IV LOREN PRN Hypotension Dexamethasone 40 mg/ Sodium 60 mls @ 100 mls/hr 12/03/18 10:00 12/04/18 09:47 Chloride IV 12/07/18 09:59 100 mls/hr Q24HR MAIRA Administration Dextrose/Sodium Chloride 1,000 mls @ 42 mls/hr 12/03/18 19:00 12/04/18 22:44 D5ns IV 42 mls/hr DIRECT MAIRA Administration Midodrine 10 mg 11/26/18 16:00 12/04/18 17:00 Proamatine PO 10 mg TID@0800,1200,1600 MAIRA Administration Morphine Sulfate 2 mg 12/02/18 16:56 12/04/18 18:55 Morphine IV 2 mg Q4H PRN Administration Pain, Moderate (4-6) Nitroglycerin 0.4 mg 11/25/18 01:02 Nitrostat SL .Q5MIN PRN Chest Pain Ondansetron HCl 4 mg 11/24/18 14:00 12/02/18 09:30 Zofran IV 4 mg Q8H PRN Administration Nausea And Vomiting Sodium Chloride 10 ml 11/24/18 22:00 12/04/18 21:35 Sodium Chloride Flush Syringe 10 Ml IV 10 ml BID MAIRA Administration Sodium Chloride 10 ml 11/24/18 14:00 Sodium Chloride Flush Syringe 10 Ml IV PRN PRN LINE FLUSH
[2018-12-05] MEDS: PROAMATINE PO SCH ×3 (08:46→16:50)
[2018-12-05] MEDS: MORPHINE IV PRN ×2 (08:46→16:50)
--- NOTE | 2018-12-05 08:51 | Discharge Summary ---
Providers - Providers Date of Admission: 11/24/18 14:00 Attending physician: ELIZABETH BECKHAM MD 11/24/18 12:16 Consult to Physician [CONS] Urgent Comment: Consulting Provider: REMEDIOS TRAYLOR Physician Instructions: Reason For Exam: pulmonary edema, hyperkalemia, hypercalcemia 11/25/18 10:18 Occupational Therapy Evaluate and Treat [CONS] Routine Comment: Reason For Exam: ATAXIA Physical Therapy Evaluation and Treat [CONS] Routine Comment: Reason For Exam: ATAXIA 12/02/18 07:21 Consult to Physician [CONS] Routine Comment: noted/jordon Consulting Provider: SHE GASPAR Physician Instructions: Reason For Exam: Hypercalcemia, abnormal seum proteins 12/03/18 07:06 Consult to Interventional Radiology [CONS] Routine Consulting Provider: DURAN MOORE Reason For Exam: myeloma - BMBx Place consult to:: Notified:: Primary care physician: CHIEF NUCLEAR MEDICINE TECHNOLOGIST Hospitalization Condition: Stable Hospital course: 68 YO Female with Nicotine Dependence, HTN, OA, HCV, Bipolar, Anxiety, Severe Malnutrition, ESRD on HD(T,R,Sa), Noncompliance with Dialysis presents to ED for evaluation. Pt is confused and unable to provide detailed history at time of my exam. Pt history taken from ED staff and patient son who is at bedside during exam and interview. 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 Pt transported to [facility] via private vehicle. * In ED and found to have ESRD, Acidosis, Encephalopathy, and Hyperkalemia, Hypercalcemia initial thought to be secondary to missed dialysis sessions. Nephrology consulted in ED for urgent dialysis. Despite dialysis, patient showed no improvement in hypercalcemia * Pt is confused, and lethargic, but has a positive gag reflex, and in able to protect her airway. No evidence of Infection noted * Patient noted to have elevated Troponin and NSTEMI protocol initiated. Review of previous records shows normal tropnin and no evidence of prior cardiac work up * Patient was given Palmidronate and Calcitonin with no improvement * Hematology consulted for persistent Hypercalcemia, PTH not elevated, but Total proteins elevated with gammaglobulin of 2.5 and abnormal band of 1.1 and 1. Skeletal survey done and showed Lytic lesions, Dexa started as trial for myeloma * Called [facility] and was informed patient had been diagosed with multiple Myeloma for years now and that they not have any further thing to offer. * Following careful discussion with Auto Body Worker, Last Calcium is down to 11.2. Patient will be discharged on Dexamethasone and Blood glucose check and will follow with Auto Body Worker/Oncologist outpatient. Afib with Rvr Treated with amiodarone drip Cardiology following Hypercalemia- secondary to multiple myeloma Continue calcitonin, pamidronate also given DEXA STARTED Multiple Myeloma As noted above ESRD (end stage renal disease) Nephrology following. Elevated Troponin due to NSTEMI Type 2 Stress test was negative, cardiology following Acute Respiratory failure secondary Fluid overload Secondary to missed dialysis, supportive care, urgent dialysis. Wean oxygen, Acute metabolic Encephalopathy CT head is negative for acute disease Confusion on and off Metabolic acidosis Plan to address problem: Corrected on IV bicarbonate therapy, Malnutrition Protein-calorie malnutrition severity: severe Increased protein intake, dietary supplementation. Osteoarthritis pain control, supportive care. Hyperkalemia Now resolved Insulin, Dextrose 50% discussed with Nephrology Hypoglycemia Start on D5 Hypotension on MIDODRINE Chronic Hep C Outpatient GI F/U care, Discussed with Dr Gaspar Anticipate discharge in am to follow with hematology for CHEMO Disposition: [id number] HOME UNDER HOME [facility] Time spent for discharge: 35 mins Core Measure Documentation - Palliative Care Palliative Care/ Comfort Measures: Not Applicable - Core Measures Any of the following diagnoses?: none Exam - Constitutional Vitals: Temp Pulse Resp BP Pulse Ox 97.3 F L 79 18 119/84 97 12/05/18 08:20 12/05/18 08:20 12/05/18 08:20 12/05/18 08:20 12/05/18 08:20 Plan Activity: advance as tolerated, fall precautions Diet: renal Special Instructions: record daily BP diary, record blood sugar diary Follow up with: PRIMARY CAREMD [Primary Care Provider] - 3-5 Days SHE GASPAR MD [Staff Physician] - 7 Days ELIZABETH CERVANTES MD [Staff Physician] - 7 Days EJ FARNSWORTH MD [Staff Physician] - 7 Days Prescriptions: dexAMETHasone [Decadron] 20 mg PO DAILY 30 Days tablet Insulin Regular, Human [HumuLIN R] 0 unit SQ AC #1 vial Famotidine [Pepcid] 10 mg PO BID #20 tablet Midodrine [Proamatine] 10 mg PO TID@0800,1200,1600 #30 tablet traMADol [Ultram 50 MG tab] 50 mg PO Q6HR PRN #20 tablet PRN Reason: Pain Other Discharge Orders: Glucometer (Amb) Location: None Selected Glucometer supplies[Amb] Location: None Selected
[2018-12-05] MEDS: HEPARIN SUB-Q SCH (09:31)
[2018-12-05] MEDS: DECADRON IV SCH (09:31)
[2018-12-05] MEDS: NACL 0.9% IV SCH (09:31)
[2018-12-05] MEDS: PEPCID PO SCH (09:32)
[2018-12-05] MEDS: SODIUM CHLORIDE FLUSH SYRINGE 10 ML IV SCH (09:35)
--- NOTE | 2018-12-05 11:03 | Progress Note ---
Assessment and Plan Pt remains in SR. Cont present cardiac management. Also, no current indication for systemic AC given brief duration of AFib. Nothing further to add from cardiac perspective at this time. Will sign off. Recommend pt follow up in our office with Dr. Rogers within 1-2 weeks of hospital discharge ([phone]). The patient has been seen in conjunction with Dr. Rendon who agrees with the assessment and plan of care. - Patient Problems (1) Atrial fibrillation with RVR Current Visit: Yes Status: Resolved (2) NSTEMI (non-ST elevated myocardial infarction) Current Visit: Yes Status: Acute (3) Acute heart failure with preserved ejection fraction (HFpEF) Current Visit: Yes Status: Resolved (4) Hypotension Current Visit: Yes Status: Chronic (5) Hyperkalemia Current Visit: Yes Status: Resolved (6) Chest pain Current Visit: Yes Status: Resolved (7) Abdominal pain Current Visit: Yes Status: Acute (8) ESRD (end stage renal disease) Current Visit: Yes Status: Chronic (9) HCV (hepatitis C virus) Current Visit: Yes Status: Chronic Qualifiers: Viral hepatitis chronicity: chronic (10) Hypercalcemia Current Visit: Yes Status: Acute (11) Multiple myeloma Current Visit: Yes Status: Suspected Subjective Date of service: 12/05/18 Principal diagnosis: myeloma - high calcium Interval history: pt resting in bed, no current cardiac complaints. remains in SR. Objective Last Vital Signs Temp 97.3 F L 12/05/18 08:20 Pulse 72 12/05/18 10:00 Resp 18 12/05/18 08:20 BP 119/84 12/05/18 08:20 Pulse Ox 97 12/05/18 08:20 - Physical Examination General: No Apparent Distress, Cachectic HEENT: Positive: EOMI, Normocephaly, Mucus Membranes Moist Neck: Positive: neck supple, trachea midline Cardiac: Positive: Reg Rate and Rhythm, S1/S2 Lungs: Positive: Decreased Breath Sounds Neuro: Positive: Grossly Intact Abdomen: Positive: Soft, Active Bowel Sounds. Negative: Tender Skin: Positive: Clear. Negative: Rash Musculoskeletal: Normal Range of Motion Extremities: Present: normal - Labs and Meds Coagulation 12/04/18 Range/Units 09:51 PT 13.6 (12.2-14.9) Sec. INR 1.07 (0.87-1.13) APTT 39.5 H (24.2-36.6) Sec. CBC 12/05/18 Range/Units 04:30 Hgb 8.9 L (10.1-14.3) gm/dl Hct 26.3 L (30.3-42.9) % Plt Count 135 L (140-440) K/mm3 - Imaging and Cardiology EKG: report reviewed, image reviewed Echo: report reviewed (EF 55-60%, LA severely dilated, mod MR, mild TR. ) - Telemetry EKG Rhythm: Sinus Rhythm - EKG Sinus rhythms and dysrhythmias: sinus rhythm AV and intraventricular conduction: left anterior fascicular Repolarization changes or abnormalities: ST or T wave suggestive of ischemia
[2018-12-05] MEDS ORDERED: NACL 0.9% 100 ML IV PRN (12:30)
[2018-12-05] MEDS ORDERED: NACL 0.9 (PRIMING MACHINE ONLY DIALYSIS) MC ONE (14:55)
[2018-12-05 17:37] VITALS: BP 139/92
== END 2018-12-05 18:34 | disposition home health service (06) | DRG 280 ==
LOC: ED 10:29 → 2B-ACE 14:00 → 4A 12-03 18:52
PROVIDERS: ADMIT Internal Medicine; ATTEND Internal Medicine
PROC: 5A1D70Z Performance of Urinary Filtration, Intermittent, Less than 6 Hours Per Day (ICD-10-PCS; principal; 2018-11-24)
PROC: 5A1D70Z Performance of Urinary Filtration, Intermittent, Less than 6 Hours Per Day (ICD-10-PCS; 2018-11-25)
PROC: 5A1D70Z Performance of Urinary Filtration, Intermittent, Less than 6 Hours Per Day (ICD-10-PCS; 2018-11-27)
PROC: 5A1D70Z Performance of Urinary Filtration, Intermittent, Less than 6 Hours Per Day (ICD-10-PCS; 2018-11-28)
PROC: 5A1D70Z Performance of Urinary Filtration, Intermittent, Less than 6 Hours Per Day (ICD-10-PCS; 2018-11-29)
PROC: 5A1D70Z Performance of Urinary Filtration, Intermittent, Less than 6 Hours Per Day (ICD-10-PCS; 2018-12-02)
PROC: 5A1D70Z Performance of Urinary Filtration, Intermittent, Less than 6 Hours Per Day (ICD-10-PCS; 2018-12-03)
PROC: 5A1D70Z Performance of Urinary Filtration, Intermittent, Less than 6 Hours Per Day (ICD-10-PCS; 2018-12-05)
DX: I21.A1 Myocardial infarction type 2 (principal); G93.41 Metabolic encephalopathy; N18.6 End stage renal disease; J96.00 Acute respiratory failure, unspecified whether with hypoxia or hypercapnia; E43 Unspecified severe protein-calorie malnutrition; I50.31 Acute diastolic (congestive) heart failure; E87.2 Acidosis; E87.79 Other fluid overload; B18.2 Chronic viral hepatitis C; E87.5 Hyperkalemia; E83.52 Hypercalcemia; I13.2 Hypertensive heart and chronic kidney disease with heart failure and with stage 5 chronic kidney disease, or end stage renal disease; I95.89 Other hypotension; Z96.642 Presence of left artificial hip joint; I48.91 Unspecified atrial fibrillation; E16.2 Hypoglycemia, unspecified; F17.200 Nicotine dependence, unspecified, uncomplicated; I08.1 Rheumatic disorders of both mitral and tricuspid valves; N25.81 Secondary hyperparathyroidism of renal origin; D63.1 Anemia in chronic kidney disease; C90.00 Multiple myeloma not having achieved remission; M19.90 Unspecified osteoarthritis, unspecified site; F31.9 Bipolar disorder, unspecified; F41.9 Anxiety disorder, unspecified; Z99.2 Dependence on renal dialysis; Z91.15 Patient's noncompliance with renal dialysis; Z90.710 Acquired absence of both cervix and uterus; Z82.49 Family history of ischemic heart disease and other diseases of the circulatory system; Z88.8 Allergy status to other drugs, medicaments and biological substances; Z88.5 Allergy status to narcotic agent; Z79.899 Other long term (current) drug therapy; Z68.1 Body mass index [BMI] 19.9 or less, adult; Z90.79 Acquired absence of other genital organ(s)
CPT/HCPCS: 36415; 70450; 71045; 77074; 78452; 80048; 80053; 80061; 80074; 82140; 82164; 82607; 82747; 82962; 83735; 83970; 84100; 84165; 84439; 84443; 84484; 85014; 85018; 85025; 85027; 85049; 85520; 85610; 85730; 93005; 93010; 93017; 93306; 94644; 94760; 96365; 96375; G0378; A9502; J0282; J0610; J0630; J1100; J1644; J1815; J2270; J2405; J2430; J2785; J7030; J7040; J7042; J7060; P9047